=== PATIENT | female | born 1960 | race Caucasian/White ===

== ENCOUNTER 2016-11-22 20:30 | Emergency (ER) | payer MEDICAID ==
[2016-04-07 13:09] VITALS: BMI 30.6
[~2016-11-22 20:30] MED LIST: ADVAIR 250/501 DISK INH; ALDACTONE100 MG PO; ATIVAN0.5 MG; CARAFATE1 G/10 ML PO; HYDROCHLOROTHIA25 MG PO; IPRAT-ALBUT 0.5-3 ML UPD; LASIX40 MG PO; LEVAQUIN500 MG PO; MEDROL DOSE PACK4 MG PO; NORCO 5/325 TAB1 TA1 PO; OXYCONTIN10 MG PO; PHENERGAN25 M1 PO; PREDNISONE10 MG; PRILOSEC10 MG PO; PROAIR HFA8.5 GM INH; PROTONIX40 MG PO; REGLAN10 MG PO; RIBAVIRIN200 MG PO; SOVALDI400 MG PO; ULTRAM50 MG PO; VESICARE5 MG PO; VITAMIN A10000 UNIT PO; VITAMIN D31000 UNI2 PO; ZITHROMAX250 MG PO; ZITHROMAX500 MG PO; ZPAK PO
[2016-11-22 21:07] LABS: BASOPHILS 0.2 % (0.0-2.0); EOSINOPHILS 2.3 % (0-7); HEMATOCRIT 40.2 % (36.0-48.0); HEMOGLOBIN 13.1 g/dL (12-16); IMMATURE GRANULOCYTES 0.2 % (0-5); LYMPHOCYTES 19.9 % (15-50); MCH 30.4 pg (26.0-34.0); MCHC 32.6 g/dL (31.0-37.0); MCV 93.3 fL (80.0-100.0); MONOCYTES 4.4 % (2-11); PLATELET COUNT 142 10x3/uL (130-400); RBC 4.31 10x6/uL (4.00-5.40); RDW 11.6 % (11.5-14.5); WBC 5.6 10x3/uL (4.8-10.8)
[2016-11-22 21:22] LABS: ALBUMIN 4.2 g/dL (3.4-5.0); ALKALINE PHOSPHATASE 60 U/L (46-116); ALT (SGPT) 25 U/L (10-68); BILIRUBIN - TOTAL 0.34 mg/dL (0.2-1.3); CALC OSMOLALITY 287 mosm/kg (275-300); CALCIUM 9.2 mg/dL (8.5-10.1); CARBON DIOXIDE 26.9 mmol/L (21.0-32.0); CHLORIDE - SERUM 107 mmol/L (98-107); CREATININE - SERUM 0.8 mg/dL (0.6-1.3); GLUCOSE 149 mg/dL (74-106); PROTEIN - SERUM 6.9 g/dL (6.4-8.2); SODIUM 142 mmol/L (136-145); UREA NITROGEN 18 mg/dL (7-18); eGFR NON AFRICAN AMERICAN 79 mL/min (90-120)
== END 2016-11-22 21:48 | disposition home or self-care (01) ==
LOC: D.ER 20:30
PROVIDERS: Nurse Practitioner Acute Care
DX: G89.29 Other chronic pain (principal); M54.2 Cervicalgia; J45.909 Unspecified asthma, uncomplicated; J44.9 Chronic obstructive pulmonary disease, unspecified; K74.1 Hepatic sclerosis; B19.20 Unspecified viral hepatitis C without hepatic coma

== ENCOUNTER → 2016-11-25 07:56 | Outpatient (CLI) | payer MEDICAID ==
[2016-04-07 13:09] VITALS: BMI 30.6
== END | disposition home or self-care (01) ==
LOC: D.CT 07:56
DX: R10.9 Unspecified abdominal pain (principal); R10.2 Pelvic and perineal pain

== ENCOUNTER 2017-04-18 10:55 | Emergency (ER) | payer MEDICAID ==
[2016-04-07 13:09] VITALS: BMI 30.6
== END 2017-04-18 12:42 | disposition home or self-care (01) ==
LOC: D.ER 10:55
DX: S33.9XXA Sprain of unspecified parts of lumbar spine and pelvis, initial encounter (principal); S70.01XA Contusion of right hip, initial encounter; W11.XXXA Fall on and from ladder, initial encounter; M19.90 Unspecified osteoarthritis, unspecified site; J44.9 Chronic obstructive pulmonary disease, unspecified

== ENCOUNTER 2017-05-30 17:09 | Inpatient (IN) | payer SELFPAY ==
[~2017-05-30] VITALS: Ht 154.9 cm; Wt 81.2 kg
[2017-05-30 18:15] LABS: BASOPHILS 0.4 % (0-2); HEMATOCRIT 38.6 % (36.0-48.0); HEMOGLOBIN 13.1 g/dL (12-16); IMMATURE GRANULOCYTES 0.6 % (0-5); LYMPHOCYTES 33.7 % (15-50); MCH 29.8 pg (26.0-34.0); MCHC 33.9 g/dL (31.0-37.0); MCV 87.7 fL (80.0-100.0); MEAN PLATELET VOLUME 10.5 fL (7.4-10.4); MONOCYTES 2.8 % (2-11); NEUTROPHILS 58.5 % (40-80); PLATELET COUNT 124 10x3/uL (130-400); RDW 13.2 % (11.5-14.5); WBC 5.3 10x3/uL (4.8-10.8)
[2017-05-30 18:31] LABS: ALBUMIN 3.8 g/dL (3.4-5.0); ANION GAP 14.8 mmol/L (8-16); BILIRUBIN - TOTAL 0.21 mg/dL (0.2-1.3); CALCIUM 8.9 mg/dL (8.5-10.1); CARBON DIOXIDE 22.9 mmol/L (21.0-32.0); POTASSIUM - SERUM 3.7 mmol/L (3.5-5.1); PROTEIN - SERUM 6.9 g/dL (6.4-8.2)
[2017-05-30 21:57] VITALS: BP 125/71; BMI 33.9
[2017-05-31] VITALS: BP 113/67
--- NOTE | 2017-05-31 01:01 | NUR ---
PAGE SENT TO DR MACHADO FOR PAIN MED REQUEST. AWAITING CALL BACK.
[2017-05-31 04:00] VITALS: BP 113/76
[2017-05-31 07:47] LABS: BASOPHILS 0 % (0-2); EOSINOPHILS 0.2 % (0-7); HEMOGLOBIN 13.1 g/dL (12-16); IMMATURE GRANULOCYTES 0.5 % (0-5); LYMPHOCYTES 9.3 % (15-50); MCHC 33.6 g/dL (31.0-37.0); MCV 89.2 fL (80.0-100.0); MEAN PLATELET VOLUME 10.7 fL (7.4-10.4); MONOCYTES 0.5 % (2-11); NEUTROPHILS 89.5 % (40-80); PLATELET COUNT 131 10x3/uL (130-400); RBC 4.37 10x6/uL (4.00-5.40); RDW 13.3 % (11.5-14.5); WBC 5.6 10x3/uL (4.8-10.8)
[2017-05-31 08:02] LABS: ANION GAP 17.6 mmol/L (8-16); CALCIUM 9.2 mg/dL (8.5-10.1); CARBON DIOXIDE 19.5 mmol/L (21.0-32.0); CREATININE - SERUM 0.9 mg/dL (0.6-1.3); POTASSIUM - SERUM 4.1 mmol/L (3.5-5.1)
[2017-05-31 09:41] VITALS: BP 104/65
--- NOTE | 2017-05-31 10:23 | NUR ---
PATIENT SITTING UPRIGHT IN BED ALERT. NO SIGNS OF DISTRESS NOTED. PRIMARY NURSE ENOC GONZALEZ AT BEDSIDE. BED IN LOW POSITION. CALL LIGHT IN REACH. SIDE RAILS UP X2
[2017-05-31 12:33] VITALS: BP 111/69
[2017-05-31 13:35] LABS: APPEARANCE CLEAR (CLEAR); BILIRUBIN NEGATIVE (NEGATIVE); COLOR YELLOW (YELLOW); GLUCOSE 250 mg/dL (NEGATIVE); KETONE SMALL mg/dL (NEGATIVE); LEUKOCYTE ESTERASE NEGATIVE (NEGATIVE); NITRITE NEGATIVE (NEGATIVE); PROTEIN NEGATIVE (NEGATIVE); UROBILINOGEN NORMAL (NORMAL)
[2017-05-31 17:38] VITALS: BP 107/70
[2017-05-31 20:00] VITALS: BP 121/60
--- NOTE | 2017-05-31 22:00 | NUR ---
PT ALERT & ORIENTED. SLIGHT WHEEZES HEARD ON AUSCULTATION. COUGH IS NON-PRODUCTIVE. RESP EVEN, UNLABORED. ROOM AIR. COMPLETE ASSESSMENT PER FLOW-SHEET. GAVE PAIN MED FOR ABDOMINAL, FLANK AND CHEST PAIN. FSBS 223 - TREATED WITH S/S INSULIN. WILL CONTINUE TO MONITOR.
[2017-06-01] VITALS (7 sets, daily range): BP systolic 101–130; BP diastolic 59–79
--- NOTE | 2017-06-01 07:30 | NUR ---
PT A&O, DENIES NEEDS, BED LOWEST POSITION, CALL LIGHT IN REACH, WILL CONTINUE TO MONITOR
--- NOTE | 2017-06-01 11:05 | NUR ---
Patient Name: LAZARUS HECTOR Admission Status: ER Accout number: [id number] Admission Date: 05-30-2017 : 1960 Admission Diagnosis: Attending: YIMI Current LOS: 2 Anticipated DC Date: 06-02-2017 Planned Disposition: Home Primary Insurance: UNINSURED DISCOUNT PLAN Discharge Planning Comments: CM MET WITH PATIENT REGARDING D/C NEEDS AND PLANS. PATIENT STATED SHE LIVES WITH HER SPOUSE (SUNDAY) AND HE WILL DRIVE HER HOME AT DISCHARGE. PATIENT STATED THERE ARE 4 STEPS TO ENTER HOME AND NO STAIRS INSIDE. PATIENT IS INDEPENDENT WITH HER CARE AND HAS NO DME AT HOME. PATIENTS PCP IS DR. SLATER AND PHARMACY IS [facility] ON [address] [facility]. PATIENT IS REFUSING HOME HEALTH AT THIS TIME. CM WILL CONTINUE TO FOLLOW PATIENT WITH D/C NEEDS AND PLANS. PCP DR. NOHEMY PASCUAL ON [address] [facility]- [phone] SUNDAY [phone] Sharepoint Net Developer: Tami Bhandari Is the patient Alert and Oriented? Yes 0 * How many steps to enter\exit or inside your home? 4 0 * PCP DR. SLATER 0 * Pharmacy [facility] [address] [facility] [facility] 0 * Preadmission Environment Home with Family 0 * ADLs Independent 0 * Equipment None 0 * List name and contact numbers for known caregivers / representatives who currently or will assist patient after discharge: SUNDAY (SPOUSE) [phone] 0 * Community resources currently utilized None 0 * Additional services required to return to the preadmission environment? Yes 0 * Has this patient been hospitalized within the prior 30 days at any hospital? No 0 Grand Total: 0
--- NOTE | 2017-06-01 12:00 | NUR ---
PT RESTING IN BED WITH NO VISABLE SIGNS OF PAIN OR DISCOMFORT AT THIS TIME. BED IN LOW POSITION AND CALL LIGHT WITHIN REACH. WILL CONTINUE TO MONITOR.
--- NOTE | 2017-06-01 15:35 | NUR ---
REPORT CALLED TO WOMENS, WILL TAKE DOWN BY WC WITH BELONGINGS
--- NOTE | 2017-06-01 16:00 | NUR ---
RCVD PT FROM MED/SURG FINISHING AREA SUPERVISOR. PT DRESSING IN PERSONAL CLOTHES AND ABD FROM W/C TO BED WITHOUT DIFFICULTY AND IS AAOX3. PT DENIES PAIN AT THIS TIME. BREATH SOUNDS CLEAR ASIDE FROM EXPIRATORY WHEEZES IN RUL. PT REPORTS FEELING SOB, BUT STATES "IT'S GETTING BETTER SINCE I'VE BEEN HERE." HR-RRR, PPP, PIV SL IN LT AC WITHOUT ERYTHEMA OR EDEMA NOTED TO SITE. BOWEL SOUNDS ACTIVE X4. SKIN C/D/I AND WNL FOR PT. ICE WATER PROVIDED PER PT REQUEST. NC PROVIDED FOR PT DUE TO ORDER FOR PRN O2. PT DENIES NEED FOR USE AT THIS TIME. BED LOW, WHEELS LOCKED, CL IN REACH, SIDE RAILS UP X2.
--- NOTE | 2017-06-01 16:33 | NUR ---
ICE WATER PROVIDED PER PT REQUEST. TESSALON PERLE GIVEN PER ORDERS. SEE EMAR. LATE ADMINISTRATION DUE TO PT TRANSFERRING FROM M/S UNIT.
--- NOTE | 2017-06-01 16:38 | NUR ---
FSBS DONE AT THIS TIME WITH RESULTS OF 170. WILL GIVEN REGULAR INSULIN PER ORDERS. PT DENIES FURTHER NEEDS.
--- NOTE | 2017-06-01 16:42 | NUR ---
8 UNITS HUMULIN GIVEN PER SLIDING SCALE WITH FSBS OF 170. GIVEN SUB Q IN LUQ OF ABD. PT TOLERATED WELL. PT DENIES PAIN OR NEEDS AT THIS TIME. FAMILY IN ROOM FOR SUPPORT.
--- NOTE | 2017-06-01 17:33 | NUR ---
MEAL TRAY DELIVERED PER DIETARY. PT DENIES FURTHER NEEDS.
--- NOTE | 2017-06-01 18:12 | NUR ---
ROUNDS MADE. PT FINISHED 80% OF MEAL. MEAL TRAY REMOVED PER PT REQUEST. PT DENIES PAIN OR NEEDS AT THIS TIME.
--- NOTE | 2017-06-01 19:20 | NUR ---
AWAKE DURING INITIAL ROUNDS. INTRODUCED SELF. V/S TAKEN. ASSESSMENT DONE. STATUS Dx: ASTHMA/EXACERBATION. SALINE LOCK TO L AC INTACT. SOME EXPIRATORY WHEEZING ON AUSCULTATION.
--- NOTE | 2017-06-01 20:59 | NUR ---
RT HERE TO GIVE BREATHING TREATMENT. HS MEDS GIVEN. SEE E-MAR.
--- NOTE | 2017-06-01 21:06 | NUR ---
FSBS 253mg/dl. REGULAR INSULIN 16 units GIVEN PER HIGH SLIDING SCALE. HS MEDS GIVEN. SEE E-MAR.
--- NOTE | 2017-06-01 23:30 | NUR ---
V/S STABLE. MEDICATED FOR PAIN WITH OXYCONTIN 10mg 1tab PO.
--- NOTE | 2017-06-02 01:29 | NUR ---
ROCEPHIN 1G IVPB INFUSING. NO ADVERSE REACTION NOTED.
--- NOTE | 2017-06-02 02:10 | NUR ---
ZITHROMAX 500mg IVPB INFUSING. SEE E-MAR.
[2017-06-02 04:15] VITALS: BP 122/83
--- NOTE | 2017-06-02 04:15 | NUR ---
SOLU-MEDROL 40mg IVP GIVEN. V/S STABLE.
--- NOTE | 2017-06-02 06:41 | NUR ---
RT HERE TO GIVE BREATHING TREATMENT.
[2017-06-02 07:15] VITALS: BP 114/69
--- NOTE | 2017-06-02 07:30 | NUR ---
PT IS RECEIVED THIS AM LYING IN BED. SHE OFFERS NO COMPLAINTS. GEN- ALERT AND OREIENTED. LUNGS- WITH BILATERAL WHEEZING. HEART- RRR. ABD- SOFT, NT BS+. EXT- LE WITH MINIMAL EDEMA. SALINE LOCK NOTED LEFT AC. BED IS LOW, SIDE RAILS UP X 2 AND CALL LIGHT IN REACH.
[2017-06-02 09:14] LABS: IMMUNOGLOBULIN E 6 IU/mL (0-100)
[2017-06-02 09:22] VITALS: Ht 154.9 cm; Wt 81.2 kg
--- NOTE | 2017-06-02 09:34 | NUR ---
LOVENOX INJECTION ADM BY Faisal BENAVIDEZ RN. PT SITTING UP IN THE BED, DENIES OTHER NEEDS AT THIS TIME. SR UP X2, CALL LIGHT AND PHONE WITHIN REACH.
--- NOTE | 2017-06-02 12:00 | NUR ---
PTS BS CHECKED AND INSULIN GIVEN. HER LUNCH IS SERVED.
--- NOTE | 2017-06-02 13:30 | NUR ---
PT IS RESTING IN BED AND OFFERS NO COMPLAINTS. BED IS LOW, SIDE RAILS UP X 2 AND CALL LIGHT IN REACH.
--- NOTE | 2017-06-02 15:00 | NUR ---
RESPIRATORY THERAPY IS HERE TO SEE PT FOR BREATHING TREATMENT. PT TOLERATED WELL.
--- NOTE | 2017-06-02 16:02 | NUR ---
PTS 11-1300 MEDS GIVEN WHICH WERE NOT RECEIVED FROM PHARMACY UNTIL RECENTLY WERE GIVEN NOW. PT OFFER NO COMPLAINTS. BED IS LOW, SIDE RAILS UP X 2 AND CALL LIGHT IN REACH.
--- NOTE | 2017-06-02 16:15 | NUR ---
PTS BS WAS 181. 8 UNITS OF INSULING GIVEN SUB CU
--- NOTE | 2017-06-02 18:24 | NUR ---
DR URBAN IS HERE TO SEE PT. NEW ORDERS NOTED.
[2017-06-02 19:20] VITALS: BP 130/69
--- NOTE | 2017-06-02 19:20 | NUR ---
ASSESSMENT PER FLOW SHEET.PT WITHOUT DISTRESS AT PRESENT.STATES PAIN 6/10 TO CHEST AND BACK WHEN SHE TAKES BREATH.DENIES FURTHER NEEDS.CALL LIGHT USE INSTRUCTED AND IN REACH
--- NOTE | 2017-06-02 20:26 | NUR ---
RT HERE TO GIVE BREATHING TREATMENTS.
[2017-06-03] VITALS: BP 121/77
--- NOTE | 2017-06-03 | NUR ---
V/S RECHECKED--STABLE. DENIES NEEDS AT THIS TIME.
--- NOTE | 2017-06-03 01:09 | NUR ---
ROCEPHIN ANTIBIOTIC 1G IVPB INFUSING. NO ADVERSE REACTION NOTED.
--- NOTE | 2017-06-03 06:19 | NUR ---
PROTONIX PO GIVEN. SEE E-MAR. SLEPT FAIRLY DURING THE NIGHT. CONTINUING PLAN OF CARE.
[2017-06-03 07:30] VITALS: BP 136/85
--- NOTE | 2017-06-03 07:30 | NUR ---
PT IS RECEIVED LYING IN BED THIA AM. SHE OFFERS NO COMPLAINTS. SHE STATES THAT HER PAIN IS ABOUT A 5. SHE DOES NOT WISH FOR ANY PAIN MED AT THIS TIME. STATES THAT SHE RESTED WELL LAST NIGHT. VSS. GEN- AWAKE AND ALERT. LUNGS- WHEEZING BILATERAL. HEART- RRR. ABD- SOFT, NT, BS+. EXT- NO EDEMA NOTED. SALINE LOCK NOTED LEFT AC. PATENT. BED IS LOW, SIDE RAILS UP X 2 AND CALL LIGHT IN REACH.
[2017-06-03] MEDS ORDERED: BROVANA15 MCG/2 M INH (07:55)
[2017-06-03] MEDS ORDERED: PULMICORT0.5 MG/21 UPD (07:56)
[2017-06-03] MEDS ORDERED: SINGULAIR10 MG PO (07:56)
[2017-06-03] MEDS ORDERED: MEDROL DOSE PACK4 MG PO (07:57)
[2017-06-03] MEDS ORDERED: ZPAK PO (07:57)
--- NOTE | 2017-06-03 08:02 | NUR ---
PT SERVED BREAKFAST. DR SLATER IS HERE TO SEE PT.. NEW ORDERS NOTED. PT IS TO BE DISCHARGED.
--- NOTE | 2017-06-03 09:00 | NUR ---
PT IS BEING DISCHARGED HOME. SHE WOULD LIKE TO GO AFTER LUNCH. SHE OFFERS NO COMPLAINTS AT THIS TIME.
--- NOTE | 2017-06-03 11:15 | NUR ---
PTS BS TAKEN. BS 272. 16 UNITS GIVEN. PT OFFERS NO COMPLAINTS.
--- NOTE | 2017-06-03 13:00 | NUR ---
PT WAS DISCHARGED HOME. SHE WAS GIVEN DISCHARGE INSTRUCTIONS AND HANDOUTS GIVEN. PT WAS TAKEN TO FRONT DOOR BY WHEELCHAIR.
== END 2017-06-03 13:30 | disposition home or self-care (01) | DRG 194 ==
LOC: OBSVTIME → D.ER 17:09 → D.MS 20:29 → D.ER 20:42 → OBSVTIME 20:42 → D.MS 20:42 → D.WS 06-01 15:57 → D.MS 06-01 15:57 → D.WS 06-02 08:29 → D.MS 06-03 13:30
PROVIDERS: Family Medicine; Internal Medicine Pulmonary Disease; Physician Assistant Medical; ADMIT Family Medicine
DX: J18.9 Pneumonia, unspecified organism (principal); J45.901 Unspecified asthma with (acute) exacerbation; R30.0 Dysuria; R10.9 Unspecified abdominal pain; B19.20 Unspecified viral hepatitis C without hepatic coma; K21.9 Gastro-esophageal reflux disease without esophagitis; R13.10 Dysphagia, unspecified; R16.1 Splenomegaly, not elsewhere classified; D69.6 Thrombocytopenia, unspecified

== ENCOUNTER 2017-08-16 18:03 | Emergency (ER) | payer MEDICAID ==
[2017-06-02 09:22] VITALS: BMI 33.8
[~2017-08-16 18:03] MED LIST changes: +BROVANA15 MCG/2 M INH; +PULMICORT0.5 MG/21 UPD; +SINGULAIR10 MG PO
[2017-08-16 19:08] LABS: BASOPHILS 0.2 % (0-2); EOSINOPHILS 4.5 % (0-7); HEMOGLOBIN 14.7 g/dL (12-16); IMMATURE GRANULOCYTES 0.6 % (0-5); LYMPHOCYTES 32.4 % (15-50); MCHC 34.2 g/dL (31.0-37.0); MCV 87.8 fL (80.0-100.0); MEAN PLATELET VOLUME 10.8 fL (7.4-10.4); NEUTROPHILS 57.3 % (40-80); RDW 12.6 % (11.5-14.5); WBC 8.9 10x3/uL (4.8-10.8)
[2017-08-16 19:09] LABS: PLATELET COUNT 196 10x3/uL (130-400)
[2017-08-16 19:24] LABS: ALBUMIN 3.9 g/dL (3.4-5.0); ANION GAP 18.3 mmol/L (8-16); BILIRUBIN - TOTAL 0.4 mg/dL (0.2-1.3); CALCIUM 9.4 mg/dL (8.5-10.1); CARBON DIOXIDE 20.4 mmol/L (21.0-32.0); CREATININE - SERUM 0.9 mg/dL (0.6-1.3); POTASSIUM - SERUM 3.7 mmol/L (3.5-5.1); PROTEIN - SERUM 6.7 g/dL (6.4-8.2)
[2017-08-16 20:19] LABS: CREATINE KINASE 44 UL (21-215); PRO BNP 202 pg/mL (0-125)
[2017-08-16 20:20] LABS: TROPONIN-I < 0.017 ng/mL (0.000-0.060)
[2017-11-23] MEDS ORDERED: LOSARTAN POTASS25 MG PO (01:13)
[2017-11-23] MEDS ORDERED: OXYCODONE HCL5 MG PO (01:14)
[2017-11-23] MEDS ORDERED: CYCLOBENZAPRINE5 MG PO (01:19)
[2017-11-23] MEDS ORDERED: PROMETHAZINE W473 M1 PO (01:20)
== END 2017-08-16 21:18 | disposition home or self-care (01) ==
LOC: D.ER 18:03
PROVIDERS: Emergency Medicine
DX: R06.00 Dyspnea, unspecified (principal); J20.9 Acute bronchitis, unspecified; J45.909 Unspecified asthma, uncomplicated

== ENCOUNTER 2017-11-02 20:52 | Emergency (ER) | payer MEDICAID ==
[2017-06-02 09:22] VITALS: BMI 33.8
[2017-11-02 22:20] LABS: BASOPHILS 0.2 % (0-2); EOSINOPHILS 2.3 % (0-7); HEMATOCRIT 42.7 % (36.0-48.0); HEMOGLOBIN 14.4 g/dL (12-16); IMMATURE GRANULOCYTES 0.2 % (0-5); LYMPHOCYTES 15.1 % (15-50); MCH 29.6 pg (26.0-34.0); MCHC 33.7 g/dL (31.0-37.0); MCV 87.9 fL (80.0-100.0); MEAN PLATELET VOLUME 10.6 fL (7.4-10.4); MONOCYTES 3.4 % (2-11); NEUTROPHILS 78.8 % (40-80); RBC 4.86 10x6/uL (4.00-5.40); RDW 12.6 % (11.5-14.5); WBC 10.5 10x3/uL (4.8-10.8)
[2017-11-02 22:22] LABS: APPEARANCE HAZY (CLEAR); BILIRUBIN NEGATIVE (NEGATIVE); COLOR YELLOW (YELLOW); GLUCOSE NEGATIVE (NEGATIVE); KETONE MODERATE mg/dL (NEGATIVE); NITRITE NEGATIVE (NEGATIVE); PROTEIN NEGATIVE (NEGATIVE); SPECIFIC GRAVITY 1.015 (1.005-1.020); UROBILINOGEN NORMAL (NORMAL)
[2017-11-02 22:34] LABS: ANION GAP 12.1 mmol/L (8-16); BILIRUBIN - TOTAL 0.85 mg/dL (0.2-1.3); CALCIUM 9.6 mg/dL (8.5-10.1); CREATININE - SERUM 0.9 mg/dL (0.6-1.3); POTASSIUM - SERUM 4.1 mmol/L (3.5-5.1)
[2017-11-02 22:37] LABS: EPITHELIAL CELLS 0-5 /hpf (0-5); RED CELLS - URINE 0-5 /hpf (0-5); WHITE CELLS - URINE 25-50 /hpf (0-5)
[2017-11-02 22:38] LABS: BACTERIA MODERATE /hpf (NONE SEEN); MUCUS <1+ /lpf (NONE SEEN)
[2017-11-02 22:38] LABS: PLATELET COUNT 145 10x3/uL (130-400)
[2017-11-23] MEDS ORDERED: LOSARTAN POTASS25 MG PO (01:13)
[2017-11-23] MEDS ORDERED: OXYCODONE HCL5 MG PO (01:14)
[2017-11-23] MEDS ORDERED: CYCLOBENZAPRINE5 MG PO (01:19)
[2017-11-23] MEDS ORDERED: PROMETHAZINE W473 M1 PO (01:20)
== END 2017-11-02 23:25 | disposition home or self-care (01) ==
LOC: D.ER 20:52
PROVIDERS: Family Medicine; Physician Assistant
DX: R05 Cough (principal); R30.0 Dysuria; R10.84 Generalized abdominal pain

== ENCOUNTER 2017-11-22 19:50 | Observation (INO) | payer MEDICAID | END 2017-11-26 11:15 | disposition home or self-care (01) | LOC: D.ER 19:50 → D.MS 11-23 00:04 | DX: J45.901 Unspecified asthma with (acute) exacerbation (principal); B19.20 Unspecified viral hepatitis C without hepatic coma; R10.9 Unspecified abdominal pain; K21.9 Gastro-esophageal reflux disease without esophagitis; K74.60 Unspecified cirrhosis of liver; M51.27 Other intervertebral disc displacement, lumbosacral region; J20.9 Acute bronchitis, unspecified ==

== ENCOUNTER 2018-02-03 18:09 | Emergency (ER) | payer MEDICAID ==
[2017-11-23 08:15] VITALS: BMI 35.2
[~2018-02-03 18:09] MED LIST changes: +BENZONATATE200 MG PO; +CYCLOBENZAPRINE5 MG PO; +FLUTICASONE PRO16 GM NASAL; +LOSARTAN POTASS25 MG PO; +OXYCODONE HCL5 MG PO; +PROMETHAZINE W473 M1 PO
== END 2018-02-03 20:30 | disposition home or self-care (01) ==
LOC: D.ER 18:09
DX: S92.152A Displaced avulsion fracture (chip fracture) of left talus, initial encounter for closed fracture (principal); W19.XXXA Unspecified fall, initial encounter; Y93.89 Activity, other specified; Y92.019 Unspecified place in single-family (private) house as the place of occurrence of the external cause

== ENCOUNTER → 2018-02-18 16:54 | Outpatient (CLI) | payer MEDICAID ==
[2017-11-23 08:15] VITALS: BMI 35.2
== END | disposition home or self-care (01) ==
LOC: D.MAMMO 15:45
DX: Z12.31 Encounter for screening mammogram for malignant neoplasm of breast (principal)

== ENCOUNTER → 2018-03-15 23:46 | Outpatient (CLI) | payer MEDICAID ==
[2017-11-23 08:15] VITALS: BMI 35.2
== END | disposition home or self-care (01) ==
LOC: D.MAMMO 09:30
DX: R92.8 Other abnormal and inconclusive findings on diagnostic imaging of breast (principal)

== ENCOUNTER 2018-05-25 12:17 | Inpatient (IN) | payer MEDICAID ==
[~2018-05-25] VITALS: Ht 154.9 cm; Wt 82.6 kg
--- NOTE | ~2018-05-25 | HP ---
PATIENT: LAZARUS HECTOR MEDICAL RECORD: [id number] ACCOUNT: [id number] LOCATION:[address] : [birth year] ADMISSION DATE: 05/25/18 HISTORY AND PHYSICAL EXAMINATION DATE OF ADMISSION: 05/25/2018 CHIEF COMPLAINT: Abdominal pain. HISTORY OF PRESENT ILLNESS: This is a 57-year-old female who has had 3 days of left lower quadrant abdominal pain, some nausea. No vomiting. She has also had some dysuria for the last couple of days. She presented to the Emergency Department today with these symptoms, she was afebrile. LABORATORY DATA: Urinalysis showed 2+ leukocyte esterase, 5-10 white blood cells, moderate bacteria. CBC was normal and basic metabolic panel was okay. Liver functions were fine. CT of the abdomen and pelvis was consistent with acute uncomplicated sigmoid diverticulitis. She is admitted. PAST MEDICAL HISTORY: She has a history of hepatitis C. She has a history of nonalcoholic cirrhosis, asthma, COPD, back pain, and chronic pain from the cirrhosis. PAST SURGICAL HISTORY: Cholecystectomy, appendectomy, . DRUG ALLERGIES: None. CURRENT MEDICATIONS: ProAir HFA 2 puffs q. 4-6 hours p.r.n., DuoNeb via nebulizer q. 4 to 6 hours p.r.n., Brovana updraft twice a day, losartan 25 mg once a day, Pulmicort twice a day, Singulair 10 mg at bedtime. She has taken oxycodone 5 mg twice a day as needed for pain. HABITS: She has never smoked, never drank alcohol, no illicit drug use. SOCIAL HISTORY: and unemployed due to her medical problems. FAMILY HISTORY: Both parents are living and healthy. REVIEW OF SYSTEMS: GENERAL: No major weight changes. HEENT: No particular sinus or allergy problems. RESPIRATORY: She has a history of COPD and asthma, followed by Dr. Marquez. CARDIAC: No chest pain or known coronary artery disease. GASTROINTESTINAL: No diarrhea, constipation or reflux. GENITOURINARY: No significant problems there. MUSCULOSKELETAL: Has some chronic pain due to hepatitis C. NEUROLOGIC: No migraines. No seizures. PSYCHIATRIC: Denies depression or melancholia. PHYSICAL EXAMINATION: VITAL SIGNS: Temperature 97.5, pulse 70, respirations 18, blood pressure 123/66, O2 sat 96% on room air. HISTORY AND PHYSICAL [id number] LAZARUS HECTOR GENERAL: She is awake, alert, does not appear in acute distress at this time. HEENT: Grossly within normal limits. NECK: Supple. HEART: Regular rate and rhythm. LUNGS: Clear. No wheeze at this time. ABDOMEN: Soft. There is left lower quadrant abdominal tenderness. No guarding, no rebound, no mass. RECTAL: Not done. EXTREMITIES: No edema. LABORATORY DATA: CBC showed a white count of 8000, hemoglobin 13.2. Basic metabolic panel is all normal. Liver functions are normal. Urinalysis shows 2+ leukocyte esterase, 5-10 white blood cells, moderate bacteria, 0-[address] of the abdomen and pelvis consistent with acute uncomplicated sigmoid diverticulitis. ASSESSMENT: 1. Acute diverticulitis. 2. Urinary tract infection. 3. History of hepatitis C with cirrhosis. 4. Asthma/chronic obstructive pulmonary disease. PLAN: We will continue her usual medicines, she was started on metronidazole and Levaquin. Gut rest. Pain control. Other tests or procedures as warranted. TRANSINT:[id number] Voice Confirmation ID: [id number] DOCUMENT ID: [id number] BONNIE HENRY MD at 1321 CC: [id number] DICTATION DATE: 05/26/18 0002 MANAGER MEETING: 05/26/18 0104 ADM IN [facility] [address] [id number]
[2018-05-25] MEDS ORDERED: BREO ELLIPTA 21 EACH (12:29)
[2018-05-25] MEDS ORDERED: PULMICORT0.5 MG/21 INH (12:29)
[2018-05-25 13:16] LABS: BASOPHILS 0.5 % (0-2); EOSINOPHILS 2.1 % (0-7); HEMATOCRIT 38.9 % (36.0-48.0); HEMOGLOBIN 13.2 g/dL (12-16); IMMATURE GRANULOCYTES 0.2 % (0-5); LYMPHOCYTES 16.4 % (15-50); MCH 29.8 pg (26.0-34.0); MCHC 33.9 g/dL (31.0-37.0); MCV 87.8 fL (80.0-100.0); MEAN PLATELET VOLUME 10.9 fL (7.4-10.4); MONOCYTES 4.5 % (2-11); NEUTROPHILS 76.3 % (40-80); PLATELET COUNT 150 10x3/uL (130-400); RBC 4.43 10x6/uL (4.00-5.40); RDW 12.8 % (11.5-14.5)
[2018-05-25 14:06] LABS: ALKALINE PHOSPHATASE 42 U/L (46-116); ALT (SGPT) 34 U/L (10-68); BILIRUBIN - TOTAL 0.81 mg/dL (0.2-1.3); CALC OSMOLALITY 280 mosm/kg (275-300); CALCIUM 9.2 mg/dL (8.5-10.1); CHLORIDE - SERUM 106 mmol/L (98-107); CREATININE - SERUM 0.8 mg/dL (0.6-1.3); POTASSIUM - SERUM 4.5 mmol/L (3.5-5.1); SODIUM 141 mmol/L (136-145); UREA NITROGEN 9 mg/dL (7-18); eGFR NON AFRICAN AMERICAN 78 mL/min (90-120)
[2018-05-25 14:09] LABS: GLUCOSE 110 mg/dL (74-106)
[2018-05-25 14:14] LABS: APPEARANCE HAZY (CLEAR); BACTERIA MODERATE /hpf (NONE SEEN); BILIRUBIN NEGATIVE (NEGATIVE); COLOR YELLOW (YELLOW); EPITHELIAL CELLS 0-5 /hpf (0-5); GLUCOSE NEGATIVE (NEGATIVE); KETONE NEGATIVE (NEGATIVE); MUCUS <1+ /lpf (NONE SEEN); NITRITE NEGATIVE (NEGATIVE); PROTEIN NEGATIVE (NEGATIVE); UROBILINOGEN NORMAL (NORMAL)
[2018-05-25 16:00] VITALS: BP 118/68
[2018-05-25 17:00] VITALS: BP 113/80
[2018-05-25 18:00] VITALS: BP 123/66
[2018-05-26 03:27] VITALS: BP 136/89; BMI 34.4
[2018-05-26 04:52] LABS: BASOPHILS 0.4 % (0-2); EOSINOPHILS 2.4 % (0-7); HEMATOCRIT 34.6 % (36.0-48.0); HEMOGLOBIN 11.6 g/dL (12-16); IMMATURE GRANULOCYTES 0.2 % (0-5); LYMPHOCYTES 18.8 % (15-50); MCH 29.5 pg (26.0-34.0); MCHC 33.5 g/dL (31.0-37.0); MEAN PLATELET VOLUME 11.1 fL (7.4-10.4); MONOCYTES 5.6 % (2-11); NEUTROPHILS 72.6 % (40-80); PLATELET COUNT 119 10x3/uL (130-400); RBC 3.93 10x6/uL (4.00-5.40); RDW 12.8 % (11.5-14.5); WBC 5.3 10x3/uL (4.8-10.8)
[2018-05-26 04:55] VITALS: BP 93/60
[2018-05-26 05:12] LABS: ALKALINE PHOSPHATASE 41 U/L (46-116); ALT (SGPT) 29 U/L (10-68); BILIRUBIN - TOTAL 0.44 mg/dL (0.2-1.3); CALC OSMOLALITY 280 mosm/kg (275-300); CALCIUM 8.3 mg/dL (8.5-10.1); CARBON DIOXIDE 25.8 mmol/L (21.0-32.0); CHLORIDE - SERUM 107 mmol/L (98-107); CREATININE - SERUM 0.8 mg/dL (0.6-1.3); GLUCOSE 124 mg/dL (74-106); PROTEIN - SERUM 5.6 g/dL (6.4-8.2); SODIUM 141 mmol/L (136-145); UREA NITROGEN 10 mg/dL (7-18); eGFR NON AFRICAN AMERICAN 78 mL/min (90-120)
[2018-05-26 05:13] LABS: POTASSIUM - SERUM 3.8 mmol/L (3.5-5.1)
[2018-05-26 07:30] VITALS: BP 107/68
[2018-05-26 13:21] VITALS: Ht 154.9 cm; Wt 82.6 kg
[2018-05-26 15:36] VITALS: BP 104/65
[2018-05-26 19:28] VITALS: BP 109/61
[2018-05-27 04:00] VITALS: BP 93/43
[2018-05-27 08:01] VITALS: BP 102/70
[2018-05-27 08:07] LABS: BASOPHILS 0.2 % (0-2); EOSINOPHILS 1.9 % (0-7); HEMATOCRIT 33.6 % (36.0-48.0); HEMOGLOBIN 11.4 g/dL (12-16); IMMATURE GRANULOCYTES 0.5 % (0-5); LYMPHOCYTES 22.6 % (15-50); MCH 29.8 pg (26.0-34.0); MCHC 33.9 g/dL (31.0-37.0); MCV 87.7 fL (80.0-100.0); MEAN PLATELET VOLUME 10.8 fL (7.4-10.4); MONOCYTES 3.1 % (2-11); NEUTROPHILS 71.7 % (40-80); PLATELET COUNT 115 10x3/uL (130-400); RBC 3.83 10x6/uL (4.00-5.40); RDW 12.7 % (11.5-14.5); WBC 4.3 10x3/uL (4.8-10.8)
[2018-05-27 08:18] LABS: CALC OSMOLALITY 278 mosm/kg (275-300); CALCIUM 8.5 mg/dL (8.5-10.1); CHLORIDE - SERUM 107 mmol/L (98-107); CREATININE - SERUM 0.8 mg/dL (0.6-1.3); GLUCOSE 129 mg/dL (74-106); POTASSIUM - SERUM 3.9 mmol/L (3.5-5.1); SODIUM 140 mmol/L (136-145); eGFR NON AFRICAN AMERICAN 78 mL/min (90-120)
[2018-05-27 08:20] LABS: UREA NITROGEN 6 mg/dL (7-18)
[2018-05-27 19:51] VITALS: BP 117/68
[2018-05-28] VITALS: BP 135/69
[2018-05-28 04:00] VITALS: BP 86/48
[2018-05-28 04:21] LABS: BASOPHILS 0.2 % (0-2); EOSINOPHILS 2.1 % (0-7); IMMATURE GRANULOCYTES 0.7 % (0-5); LYMPHOCYTES 22.9 % (15-50); MCH 29.2 pg (26.0-34.0); MCHC 33.3 g/dL (31.0-37.0); MCV 87.5 fL (80.0-100.0); MEAN PLATELET VOLUME 10.7 fL (7.4-10.4); NEUTROPHILS 70.1 % (40-80); PLATELET COUNT 129 10x3/uL (130-400); RBC 3.77 10x6/uL (4.00-5.40); RDW 12.5 % (11.5-14.5); WBC 4.3 10x3/uL (4.8-10.8)
[2018-05-28 04:49] LABS: CALC OSMOLALITY 277 mosm/kg (275-300); CALCIUM 8.5 mg/dL (8.5-10.1); CARBON DIOXIDE 26.8 mmol/L (21.0-32.0); CHLORIDE - SERUM 108 mmol/L (98-107); CREATININE - SERUM 0.8 mg/dL (0.6-1.3); GLUCOSE 112 mg/dL (74-106); POTASSIUM - SERUM 3.8 mmol/L (3.5-5.1); SODIUM 140 mmol/L (136-145); UREA NITROGEN 6 mg/dL (7-18); eGFR NON AFRICAN AMERICAN 78 mL/min (90-120)
[2018-05-28 07:16] VITALS: BP 104/61
[2018-05-28] MEDS ORDERED: OXYCODONE HCL5 MG PO (08:08)
[2018-05-28 11:22] VITALS: BP 105/67
[2018-05-28 15:16] VITALS: BP 96/41
[2018-05-28 20:18] VITALS: BP 97/69
[2018-05-29 00:01] VITALS: BP 109/66
[2018-05-29 04:16] VITALS: BP 108/63
[2018-05-29] MEDS ORDERED: ZOFRAN4 MG PO (09:57)
[2018-05-29] MEDS ORDERED: LEVAQUIN500 MG PO (09:57)
[2018-05-29] MEDS ORDERED: FLAGYL500 MG PO (09:58)
[2018-05-29 10:32] VITALS: BP 116/75
== END 2018-05-29 14:21 | disposition home or self-care (01) | DRG 690 ==
LOC: D.ER 12:17 → D.M3 16:24 → D.EDHOLD 16:24 → D.M3 19:41 → D.MS 05-28 16:55
PROVIDERS: Family Medicine
DX: N39.0 Urinary tract infection, site not specified (principal); K57.32 Diverticulitis of large intestine without perforation or abscess without bleeding; J44.9 Chronic obstructive pulmonary disease, unspecified; K74.60 Unspecified cirrhosis of liver; B19.20 Unspecified viral hepatitis C without hepatic coma

== ENCOUNTER 2018-07-20 18:06 | Emergency (ER) | payer MEDICAID ==
[~2018-07-20] VITALS: Ht 154.9 cm; Wt 81.6 kg
[~2018-07-20 18:06] MED LIST changes: +BREO ELLIPTA 21 EACH; +FLAGYL500 MG PO; +PULMICORT0.5 MG/21 INH; +ZOFRAN4 MG PO
[2018-07-20 18:11] VITALS: Ht 154.9 cm; Wt 81.6 kg
[2018-07-20] MEDS ORDERED: VOLTAREN75 MG PO (19:58)
[2018-07-20] MEDS ORDERED: VIBRAMYCIN 100100 MG PO (19:58)
[2018-07-20 20:34] VITALS: BP 142/83
== END 2018-07-20 20:42 | disposition home or self-care (01) ==
LOC: D.ER 18:06
DX: L03.012 Cellulitis of left finger (principal); K74.60 Unspecified cirrhosis of liver; B19.20 Unspecified viral hepatitis C without hepatic coma; J44.9 Chronic obstructive pulmonary disease, unspecified

== ENCOUNTER 2018-07-24 00:08 | Emergency (ER) | payer MEDICAID ==
[~2018-07-24] VITALS: Ht 154.9 cm; Wt 81.8 kg
[~2018-07-24 00:08] MED LIST changes: +VIBRAMYCIN 100100 MG PO; +VOLTAREN75 MG PO
[2018-07-24 00:15] VITALS: Ht 154.9 cm; Wt 81.8 kg
[2018-07-24] MEDS ORDERED: MONODOX100 MG PO (00:20)
[2018-07-24 00:49] LABS: BASOPHILS 0.3 % (0-2); EOSINOPHILS 3.8 % (0-7); HEMATOCRIT 39.3 % (36.0-48.0); HEMOGLOBIN 13.6 g/dL (12-16); IMMATURE GRANULOCYTES 0.3 % (0-5); LYMPHOCYTES 22.5 % (15-50); MCH 29.3 pg (26.0-34.0); MCHC 34.6 g/dL (31.0-37.0); MCV 84.7 fL (80.0-100.0); MEAN PLATELET VOLUME 10.8 fL (7.4-10.4); MONOCYTES 4.3 % (2-11); NEUTROPHILS 68.8 % (40-80); PLATELET COUNT 148 10x3/uL (130-400); RBC 4.64 10x6/uL (4.00-5.40); RDW 12.9 % (11.5-14.5); WBC 7.6 10x3/uL (4.8-10.8)
[2018-07-24 00:59] LABS: ALBUMIN 3.8 g/dL (3.4-5.0); ANION GAP 14.7 mmol/L (8-16); BILIRUBIN - TOTAL 0.41 mg/dL (0.2-1.3); C-REACTIVE PROTEIN 0.9 mg/dL (0.0-0.9); CALCIUM 9.2 mg/dL (8.5-10.1); CARBON DIOXIDE 25.2 mmol/L (21.0-32.0); CREATININE - SERUM 0.9 mg/dL (0.6-1.3); POTASSIUM - SERUM 3.9 mmol/L (3.5-5.1); PROTEIN - SERUM 6.8 g/dL (6.4-8.2); URIC ACID 5.4 mg/dL (2.6-7.2)
[2018-07-24 01:40] LABS: ERYTHROCYTE SEDIMENTATION RATE 42 mm/hr (0-30)
[2018-07-24] MEDS ORDERED: CLEOCIN HCL300 MG PO (02:10)
[2018-07-24 02:32] VITALS: BP 134/84
== END 2018-07-24 02:33 | disposition home or self-care (01) ==
LOC: D.ER 00:08
PROVIDERS: Family Medicine
DX: L03.012 Cellulitis of left finger (principal); B19.20 Unspecified viral hepatitis C without hepatic coma; K74.60 Unspecified cirrhosis of liver; J44.9 Chronic obstructive pulmonary disease, unspecified; J45.909 Unspecified asthma, uncomplicated

== ENCOUNTER → 2018-07-28 14:02 | Outpatient (CLI) | payer MEDICAID ==
[2018-07-24 00:15] VITALS: BMI 34.0
[~2018-07-28 14:02] MED LIST changes: +CLEOCIN HCL300 MG PO; +MONODOX100 MG PO
== END | disposition home or self-care (01) ==
LOC: D.MRI 14:02
DX: M86.8X8 Other osteomyelitis, other site (principal)

== ENCOUNTER 2018-09-17 16:28 | Emergency (ER) | payer MEDICAID ==
[~2018-09-17] VITALS: Ht 154.9 cm; Wt 81.8 kg
[2018-09-17 16:38] VITALS: Ht 154.9 cm; Wt 81.8 kg
[2018-09-17 17:10] LABS: BASOPHILS 0.7 % (0-2); EOSINOPHILS 5.4 % (0-7); HEMATOCRIT 40.2 % (36.0-48.0); HEMOGLOBIN 13.9 g/dL (12-16); IMMATURE GRANULOCYTES 0.4 % (0-5); LYMPHOCYTES 24.8 % (15-50); MCH 29.3 pg (26.0-34.0); MCHC 34.6 g/dL (31.0-37.0); MCV 84.8 fL (80.0-100.0); MEAN PLATELET VOLUME 10.3 fL (7.4-10.4); MONOCYTES 4.2 % (2-11); NEUTROPHILS 64.5 % (40-80); PLATELET COUNT 171 10x3/uL (130-400); RBC 4.74 10x6/uL (4.00-5.40); RDW 12.9 % (11.5-14.5); WBC 7.4 10x3/uL (4.8-10.8)
[2018-09-17 17:23] LABS: ALBUMIN 4.1 g/dL (3.4-5.0); ALKALINE PHOSPHATASE 42 U/L (46-116); ALT (SGPT) 22 U/L (10-68); BILIRUBIN - TOTAL 0.67 mg/dL (0.2-1.3); CALC OSMOLALITY 282 mosm/kg (275-300); CALCIUM 9.5 mg/dL (8.5-10.1); CARBON DIOXIDE 21.9 mmol/L (21.0-32.0); CHLORIDE - SERUM 107 mmol/L (98-107); CREATININE - SERUM 0.7 mg/dL (0.6-1.3); GLUCOSE 110 mg/dL (74-106); POTASSIUM - SERUM 3.9 mmol/L (3.5-5.1); PROTEIN - SERUM 7.3 g/dL (6.4-8.2); SODIUM 141 mmol/L (136-145); UREA NITROGEN 16 mg/dL (7-18); eGFR NON AFRICAN AMERICAN > 90 mL/min (90-120)
[2018-09-17 19:52] LABS: APPEARANCE CLEAR (CLEAR); BILIRUBIN NEGATIVE (NEGATIVE); COLOR YELLOW (YELLOW); GLUCOSE NEGATIVE (NEGATIVE); KETONE SMALL mg/dL (NEGATIVE); NITRITE NEGATIVE (NEGATIVE); PROTEIN NEGATIVE (NEGATIVE); SPECIFIC GRAVITY 1.015 (1.005-1.020); UROBILINOGEN NORMAL (NORMAL)
[2018-09-17 19:54] LABS: BACTERIA FEW /hpf (NONE SEEN); RED CELLS - URINE OCC /hpf (0-5); WHITE CELLS - URINE OCC /hpf (0-5)
[2018-09-17] MEDS ORDERED: LEVAQUIN750 MG PO (21:59)
[2018-09-17 22:18] VITALS: BP 106/70
== END 2018-09-17 22:18 | disposition home or self-care (01) ==
LOC: D.ER 16:28
PROVIDERS: Emergency Medicine
DX: J44.1 Chronic obstructive pulmonary disease with (acute) exacerbation (principal); R10.32 Left lower quadrant pain; K74.60 Unspecified cirrhosis of liver; B19.20 Unspecified viral hepatitis C without hepatic coma; R14.0 Abdominal distension (gaseous)

== ENCOUNTER → 2018-10-14 09:02 | Outpatient (CLI) | payer MEDICAID ==
[2018-09-17 16:38] VITALS: BMI 34.0
[~2018-10-14 09:02] MED LIST changes: +LEVAQUIN750 MG PO
[2018-10-14 10:05] LABS: BASOPHILS 0.5 % (0-2); EOSINOPHILS 4.5 % (0-7); HEMATOCRIT 40.1 % (36.0-48.0); HEMOGLOBIN 13.3 g/dL (12-16); IMMATURE GRANULOCYTES 0.5 % (0-5); LYMPHOCYTES 27.1 % (15-50); MCH 29.2 pg (26.0-34.0); MCHC 33.2 g/dL (31.0-37.0); MCV 88.1 fL (80.0-100.0); MEAN PLATELET VOLUME 10.7 fL (7.4-10.4); MONOCYTES 3.5 % (2-11); NEUTROPHILS 63.9 % (40-80); PLATELET COUNT 149 10x3/uL (130-400); RBC 4.55 10x6/uL (4.00-5.40); RDW 13.4 % (11.5-14.5); WBC 5.7 10x3/uL (4.8-10.8)
== END | disposition home or self-care (01) ==
LOC: D.LAB 08:00
PROVIDERS: Internal Medicine Pulmonary Disease
DX: J45.901 Unspecified asthma with (acute) exacerbation (principal)

== ENCOUNTER → 2018-11-02 12:44 | Outpatient (CLI) | payer MEDICAID ==
[2018-09-17 16:38] VITALS: BMI 34.0
[2018-11-02 15:16] LABS: ERYTHROCYTE SEDIMENTATION RATE 14 mm/hr (0-30)
[2018-11-03 10:21] LABS: ANA REFLEX - DIRECT Negative (Negative)
== END | disposition home or self-care (01) ==
LOC: D.RT 12:44
PROVIDERS: Internal Medicine Pulmonary Disease
DX: J45.901 Unspecified asthma with (acute) exacerbation (principal); M79.10 Myalgia, unspecified site

== ENCOUNTER 2019-05-03 13:37 | Emergency (ER) | payer MEDICAID ==
[~2019-05-03] VITALS: Ht 154.9 cm; Wt 84.1 kg
[2019-05-03 14:07] VITALS: Ht 154.9 cm; Wt 84.1 kg
[2019-05-03] MEDS ORDERED: SINGULAIR10 MG PO (14:10)
[2019-05-03] MEDS ORDERED: NEURONTIN 400400 MG PO (14:11)
[2019-05-03] MEDS ORDERED: OXYCONTIN10 MG PO (14:12)
[2019-05-03] MEDS ORDERED: BREO ELLIPTA 21 EACH (14:13)
[2019-05-03 14:43] LABS: BASOPHILS 0 % (0-2); EOSINOPHILS 0 % (0-7); HEMATOCRIT 42.5 % (36.0-48.0); HEMOGLOBIN 14.5 g/dL (12-16); IMMATURE GRANULOCYTES 0.4 % (0-5); LYMPHOCYTES 20.3 % (15-50); MCH 29.4 pg (26.0-34.0); MCHC 34.1 g/dL (31.0-37.0); MCV 86.2 fL (80.0-100.0); MEAN PLATELET VOLUME 10.7 fL (7.4-10.4); MONOCYTES 4.3 % (2-11); PLATELET COUNT 148 10x3/uL (130-400); RBC 4.93 10x6/uL (4.00-5.40); RDW 12.9 % (11.5-14.5); WBC 7.3 10x3/uL (4.8-10.8)
[2019-05-03 14:50] LABS: APPEARANCE CLEAR (CLEAR); BILIRUBIN NEGATIVE (NEGATIVE); COLOR YELLOW (YELLOW); GLUCOSE NEGATIVE (NEGATIVE); KETONE NEGATIVE (NEGATIVE); NITRITE NEGATIVE (NEGATIVE); PROTEIN NEGATIVE (NEGATIVE); UROBILINOGEN NORMAL (NORMAL)
[2019-05-03 14:51] LABS: BACTERIA MODERATE /hpf (NONE SEEN); EPITHELIAL CELLS 0-5 /hpf (0-5); RED CELLS - URINE OCC /hpf (0-5)
[2019-05-03 15:07] LABS: ALBUMIN 4.1 g/dL (3.4-5.0); ALKALINE PHOSPHATASE 51 U/L (46-116); ALT (SGPT) 22 U/L (10-68); CALC OSMOLALITY 281 mosm/kg (275-300); CALCIUM 9.1 mg/dL (8.5-10.1); CARBON DIOXIDE 25.5 mmol/L (21.0-32.0); CHLORIDE - SERUM 105 mmol/L (98-107); CREATININE - SERUM 0.8 mg/dL (0.6-1.3); GLUCOSE 149 mg/dL (74-106); POTASSIUM - SERUM 4.1 mmol/L (3.5-5.1); PROTEIN - SERUM 7.3 g/dL (6.4-8.2); SODIUM 140 mmol/L (136-145); UREA NITROGEN 13 mg/dL (7-18); eGFR NON AFRICAN AMERICAN 78 mL/min (90-120)
[2019-05-03 15:09] LABS: AMYLASE - SERUM 51 U/L (25-115); LIPASE 193 U/L (73-393)
[2019-05-03 15:30] LABS: TROPONIN-I < 0.017 ng/mL (0.000-0.060)
[2019-05-03] MEDS ORDERED: SORBITOL4000 ML PO (16:02)
[2019-05-03] MEDS ORDERED: DULCOLAX5 MG PO (16:02)
[2019-05-03] MEDS ORDERED: MACROBID100 MG PO (16:02)
[2019-05-03] MEDS ORDERED: CHRONULAC30 ML PO (16:02)
[2019-05-03 16:55] VITALS: BP 116/88
== END 2019-05-03 16:55 | disposition home or self-care (01) ==
LOC: D.ER 13:37
PROVIDERS: Family Medicine
DX: N39.0 Urinary tract infection, site not specified (principal); K59.00 Constipation, unspecified

== ENCOUNTER → 2019-06-24 09:56 | Outpatient (CLI) | payer MEDICAID ==
[2019-05-03 14:07] VITALS: BMI 35.0
[~2019-06-24 09:56] MED LIST changes: +CHRONULAC30 ML PO; +DULCOLAX5 MG PO; +MACROBID100 MG PO; +NEURONTIN 400400 MG PO; +SORBITOL4000 ML PO
== END | disposition home or self-care (01) ==
LOC: D.MAMMO 09:56
PROVIDERS: ATTEND Family Medicine
DX: N64.4 Mastodynia (principal)

== ENCOUNTER 2019-08-15 16:45 | Emergency (ER) | payer MEDICAID ==
[~2019-08-15] VITALS: Ht 154.9 cm; Wt 80.9 kg
[2019-08-15 16:52] VITALS: Ht 154.9 cm; Wt 80.9 kg
[2019-08-15] MEDS ORDERED: SPIRIVA18 MCG INH (16:55)
[2019-08-15 17:23] LABS: BASOPHILS 0 % (0-2); EOSINOPHILS 0 % (0-7); HEMATOCRIT 43.9 % (36.0-48.0); HEMOGLOBIN 14.5 g/dL (12-16); IMMATURE GRANULOCYTES 0.3 % (0-5); LYMPHOCYTES 26.5 % (15-50); MCH 28.9 pg (26.0-34.0); MCV 87.6 fL (80.0-100.0); MEAN PLATELET VOLUME 10.6 fL (7.4-10.4); MONOCYTES 4.2 % (2-11); RBC 5.01 10x6/uL (4.00-5.40); RDW 12.7 % (11.5-14.5); WBC 7.1 10x3/uL (4.8-10.8)
[2019-08-15 17:32] LABS: CALC OSMOLALITY 282 mosm/kg (275-300); CALCIUM 9.7 mg/dL (8.5-10.1); CARBON DIOXIDE 23.5 mmol/L (21.0-32.0); CHLORIDE - SERUM 106 mmol/L (98-107); GLUCOSE 134 mg/dL (74-106); POTASSIUM - SERUM 4.2 mmol/L (3.5-5.1); SODIUM 141 mmol/L (136-145); UREA NITROGEN 13 mg/dL (7-18); eGFR NON AFRICAN AMERICAN 61 mL/min (90-120)
[2019-08-15 17:50] LABS: ALBUMIN 4.1 g/dL (3.4-5.0); ALKALINE PHOSPHATASE 45 U/L (46-116); ALT (SGPT) 25 U/L (10-68); BILIRUBIN - TOTAL 0.73 mg/dL (0.2-1.3); CREATINE KINASE 34 UL (21-215); PROTEIN - SERUM 7.7 g/dL (6.4-8.2)
[2019-08-15 17:51] LABS: TROPONIN-I < 0.017 ng/mL (0.000-0.060)
[2019-08-15 18:06] LABS: PLATELET COUNT 191 10x3/uL (130-400)
[2019-08-15] MEDS ORDERED: TYLENOL W/CODEI1 TAB PO (19:59)
[2019-08-15] MEDS ORDERED: ZPAK PO (19:59)
[2019-08-15] MEDS ORDERED: STERAPRED DS 1010 MG PO (19:59)
[2019-08-15 21:05] VITALS: BP 131/69
== END 2019-08-15 20:55 | disposition home or self-care (01) ==
LOC: D.ER 16:45
PROVIDERS: Emergency Medicine
DX: J40 Bronchitis, not specified as acute or chronic (principal); J06.9 Acute upper respiratory infection, unspecified; J44.9 Chronic obstructive pulmonary disease, unspecified

== ENCOUNTER → 2020-02-14 17:02 | Outpatient (CLI) | payer OTHER ==
[2019-08-15 16:52] VITALS: BMI 33.7
[~2020-02-14 17:02] MED LIST changes: +SPIRIVA18 MCG INH; +STERAPRED DS 1010 MG PO; +TYLENOL W/CODEI1 TAB PO
[2020-02-14 17:12] LABS: BASOPHILS 0.6 % (0-2); EOSINOPHILS 2.7 % (0-7); HEMATOCRIT 44.5 % (36.0-48.0); HEMOGLOBIN 14.5 g/dL (12-16); IMMATURE GRANULOCYTES 0.4 % (0-5); MCH 29.1 pg (26.0-34.0); MCHC 32.6 g/dL (31.0-37.0); MCV 89.2 fL (80.0-100.0); MEAN PLATELET VOLUME 11.2 fL (7.4-10.4); MONOCYTES 3.1 % (2-11); NEUTROPHILS 71.2 % (40-80); PLATELET COUNT 185 10x3/uL (130-400); RBC 4.99 10x6/uL (4.00-5.40); RDW 12.6 % (11.5-14.5)
== END | disposition home or self-care (01) ==
LOC: D.LABREF 17:02
PROVIDERS: ATTEND Internal Medicine Pulmonary Disease
DX: J82 Pulmonary eosinophilia, not elsewhere classified (principal)

== ENCOUNTER 2020-03-03 06:43 | Emergency (ER) | payer OTHER ==
[~2020-03-03] VITALS: Ht 154.9 cm; Wt 81.8 kg
[2020-03-03 06:53] VITALS: Ht 154.9 cm; Wt 81.8 kg
[2020-03-03 07:21] LABS: BASOPHILS 0 % (0-2); EOSINOPHILS 0.1 % (0-7); HEMATOCRIT 41.7 % (36.0-48.0); HEMOGLOBIN 13.5 g/dL (12-16); IMMATURE GRANULOCYTES 0.4 % (0-5); LYMPHOCYTES 24.2 % (15-50); MCH 28.9 pg (26.0-34.0); MCHC 32.4 g/dL (31.0-37.0); MCV 89.3 fL (80.0-100.0); MEAN PLATELET VOLUME 10.9 fL (7.4-10.4); MONOCYTES 5.6 % (2-11); NEUTROPHILS 69.7 % (40-80); PLATELET COUNT 166 10x3/uL (130-400); RBC 4.67 10x6/uL (4.00-5.40); RDW 12.6 % (11.5-14.5); WBC 6.8 10x3/uL (4.8-10.8)
[2020-03-03 07:28] LABS: CALC OSMOLALITY 279 mosm/kg (275-300); CALCIUM 8.7 mg/dL (8.5-10.1); CHLORIDE - SERUM 103 mmol/L (98-107); CREATININE - SERUM 0.9 mg/dL (0.6-1.3); SODIUM 137 mmol/L (136-145); UREA NITROGEN 10 mg/dL (7-18); eGFR NON AFRICAN AMERICAN 68 mL/min (90-120)
[2020-03-03 07:30] LABS: GLUCOSE 230 mg/dL (74-106)
[2020-03-03 07:36] LABS: ALBUMIN 3.7 g/dL (3.4-5.0); ALKALINE PHOSPHATASE 53 U/L (30-120); ALT (SGPT) 28 U/L (10-68); BILIRUBIN - TOTAL 0.74 mg/dL (0.2-1.3); CREATINE KINASE 33 UL (21-215); MAGNESIUM - SERUM 2.1 mg/dL (1.8-2.4); PROTEIN - SERUM 6.7 g/dL (6.4-8.2)
[2020-03-03 07:37] LABS: TROPONIN-I < 0.017 ng/mL (0.000-0.060)
[2020-03-03 07:43] LABS: APTT 27.8 SECONDS (22.8-39.4); INR 1.02 (0.85-1.17); PROTIME 13.3 SECONDS (11.6-15.0)
[2020-03-03 08:03] LABS: CKMB 0.3 U/L (0.0-3.6)
[2020-03-03] MEDS ORDERED: NAPROSYN500 MG PO (08:05)
[2020-03-03] MEDS ORDERED: TYLENOL #4 W/CO1 TAB PO (08:07)
[2020-03-03 08:14] VITALS: BP 128/74
== END 2020-03-03 08:15 | disposition home or self-care (01) ==
LOC: D.ER 06:43
PROVIDERS: Family Medicine
DX: M94.0 Chondrocostal junction syndrome [Tietze] (principal); E11.40 Type 2 diabetes mellitus with diabetic neuropathy, unspecified; J44.9 Chronic obstructive pulmonary disease, unspecified; R07.9 Chest pain, unspecified

== ENCOUNTER 2020-03-08 13:01 | Inpatient (IN) | payer OTHER ==
[~2020-03-08] VITALS: Ht 154.9 cm; Wt 82.6 kg
[~2020-03-08 13:01] MED LIST changes: +NAPROSYN500 MG PO; +TYLENOL #4 W/CO1 TAB PO
[2020-03-08 13:38] LABS: BASOPHILS 0 % (0-2); EOSINOPHILS 0 % (0-7); HEMOGLOBIN 13.9 g/dL (12-16); IMMATURE GRANULOCYTES 0.4 % (0-5); LYMPHOCYTES 23.9 % (15-50); MCH 28.5 pg (26.0-34.0); MCHC 32.3 g/dL (31.0-37.0); MCV 88.3 fL (80.0-100.0); MEAN PLATELET VOLUME 10.8 fL (7.4-10.4); MONOCYTES 4.6 % (2-11); NEUTROPHILS 71.1 % (40-80); RBC 4.87 10x6/uL (4.00-5.40); RDW 12.5 % (11.5-14.5); WBC 5.2 10x3/uL (4.8-10.8)
[2020-03-08 13:39] LABS: PLATELET COUNT 221 10x3/uL (130-400)
[2020-03-08 13:50] LABS: CALC OSMOLALITY 280 mosm/kg (275-300); CALCIUM 9.5 mg/dL (8.5-10.1); CARBON DIOXIDE 26.1 mmol/L (21.0-32.0); CHLORIDE - SERUM 102 mmol/L (98-107); GLUCOSE 216 mg/dL (74-106); POTASSIUM - SERUM 4.2 mmol/L (3.5-5.1); SODIUM 137 mmol/L (136-145); UREA NITROGEN 13 mg/dL (7-18); eGFR NON AFRICAN AMERICAN 60 mL/min (90-120)
[2020-03-08 13:56] VITALS: BP 152/97
[2020-03-08 13:57] LABS: ALBUMIN 4.2 g/dL (3.4-5.0); ALKALINE PHOSPHATASE 46 U/L (30-120); ALT (SGPT) 37 U/L (10-68); AMYLASE - SERUM 35 U/L (25-115); BILIRUBIN - TOTAL 0.68 mg/dL (0.2-1.3); LIPASE 106 U/L (73-393); PROTEIN - SERUM 7.7 g/dL (6.4-8.2)
[2020-03-08 14:10] LABS: TROPONIN-I < 0.017 ng/mL (0.000-0.060)
--- NOTE | 2020-03-08 14:25 | NUR ---
TO CT VIA STRETCHER WITH ROUTER OPERATOR RADIAL.
[2020-03-08 14:42] VITALS: BP 133/78
--- NOTE | 2020-03-08 14:43 | NUR ---
RTND FROM CT, CONTINUES TO C/O 07/21 PAIN. ENEDINA, NOTIFIED
[2020-03-08 14:50] LABS: BILIRUBIN NEGATIVE (NEGATIVE); GLUCOSE 250 mg/dL (NEGATIVE); KETONE NEGATIVE (NEGATIVE); NITRITE NEGATIVE (NEGATIVE); SPECIFIC GRAVITY 1.025 (1.005-1.020); UROBILINOGEN NORMAL (NORMAL)
[2020-03-08 15:11] VITALS: BP 140/74
--- NOTE | 2020-03-08 16:25 | NUR ---
TO US VIA WC WITH US TECH
[2020-03-08 16:51] VITALS: BP 125/69
--- NOTE | 2020-03-08 16:51 | NUR ---
RTN FROM US, C/O TO C/O LLQ PAIN. ELIA MCCONNELL NOTIFIED
[2020-03-08 18:00] VITALS: BP 127/74
--- NOTE | 2020-03-08 19:03 | NUR ---
TO OR WITH OR NURSE, CONDITION STABLE
--- NOTE | 2020-03-08 22:10 | NUR ---
PATIENT ARRIVED FROM RECOVERY ROOM. NO S/S OF ACUTE DISTRESS. NO C/O AT THIS TIME. PATIENT IS ON 3L OF O2 NASAL CANNULA. PATIENT HAS LEFT AC IV LR @ 125 ML/HR. IV IS PATENT WITHOUT REDNESS, SWELLING, OR TENDERNESS. PATIENT HAS 3 LAP SITES- ONE IN THE BELLY BUTTON, ONE MIDLINE ABOVE PUBIC AREA. A DRESSING C/D/I. CALL LIGHT WITHIN REACH. WILL CONTINUE TO MONITOR.
[2020-03-08 22:38] VITALS: BP 129/66; BMI 34.4
[2020-03-09] VITALS: BP 129/66
[2020-03-09 04:00] VITALS: BP 156/75
--- NOTE | 2020-03-09 06:38 | NUR ---
PATIENT'S PAIN HAS STEADILY INCREASED THROUGHOUT THE NIGHT. PATIENT STATES, "I THINK THIS PAIN WILL BE THE OF ME. THE DILAUDID HASN'T HELP AT ALL." PATIENT'S RIGHT UPPER QUADRANT IS SWOLLEN COMPARED TO LAST NIGHT. WHEN PATIENT GETS UP TO GO TO THE BATHROOM SHE CUPS HER LOWER ABDOMEN WITH HER ARMS AND CAN BARELY STAND UPRIGHT. PATIENT INSISTED IN AMBULATING TO THE BATHROOM. CALL LIGHT IN PLACE. WILL CONTINUE TO MONITOR.
[2020-03-09 06:40] LABS: BASOPHILS 0 % (0-2); EOSINOPHILS 0 % (0-7); HEMATOCRIT 36.3 % (36.0-48.0); HEMOGLOBIN 11.5 g/dL (12-16); IMMATURE GRANULOCYTES 0.3 % (0-5); LYMPHOCYTES 18.9 % (15-50); MCH 28.2 pg (26.0-34.0); MCHC 31.7 g/dL (31.0-37.0); MEAN PLATELET VOLUME 10.4 fL (7.4-10.4); MONOCYTES 5.2 % (2-11); NEUTROPHILS 75.6 % (40-80); RBC 4.08 10x6/uL (4.00-5.40); RDW 12.6 % (11.5-14.5); WBC 6.2 10x3/uL (4.8-10.8)
[2020-03-09 06:52] LABS: PLATELET COUNT 173 10x3/uL (130-400)
[2020-03-09 06:55] LABS: ALBUMIN 3.2 g/dL (3.4-5.0); ALKALINE PHOSPHATASE 34 U/L (30-120); ALT (SGPT) 30 U/L (10-68); BILIRUBIN - TOTAL 0.57 mg/dL (0.2-1.3); CALC OSMOLALITY 278 mosm/kg (275-300); CALCIUM 8.4 mg/dL (8.5-10.1); CARBON DIOXIDE 24.6 mmol/L (21.0-32.0); CHLORIDE - SERUM 105 mmol/L (98-107); CREATININE - SERUM 0.8 mg/dL (0.6-1.3); GLUCOSE 176 mg/dL (74-106); POTASSIUM - SERUM 3.6 mmol/L (3.5-5.1); PROTEIN - SERUM 5.8 g/dL (6.4-8.2); SODIUM 138 mmol/L (136-145); UREA NITROGEN 10 mg/dL (7-18); eGFR NON AFRICAN AMERICAN 78 mL/min (90-120)
[2020-03-09 08:00] VITALS: BP 125/82
--- NOTE | 2020-03-09 09:14 | NUR ---
PT RESTING RECLINED IN BED WITH EYES CLOSED, BREATHING EVEN AND UNLABORED UPON ENTERING. NO S/S OF DISTRESS NOTED. EASILY AROUSES TO VOICE. PT COMPLAINS OF PAIN, ADMINISTERED PRN PERCOCET PAIN 10/. ASSESSMENT PERFORMED AT THIS TIME. PT IS NOW UPRIGHT IN BED, ATTEMPTING TO EAT BREAKFAST, REPORTS HAVING VERY LITTLE APETTITE DUE TO SEVER ABDOMINAL PAIN. DENIES ANY OTHER NEEDS AT THIS TIME. WILL CONTINUE TO MONITOR.
--- NOTE | 2020-03-09 11:37 | NUR ---
ADMINISTERED NEWLY ORDERED MEDICATIONS, TOLERATED WELL. PT IS RESTING IN BED, STILL VERY UNCOMFORTABLE, PAIN IS A 9/10. DR. HAYNES HAS BEEN CONSULTED. SPOKE WITH THE DAUGHTER ON THE PHONE AT LENGTH ABOUT THE PATIENT, HER STATUS AND WHAT THE PLAN OF ACTION WAS FOR TODAY. SHE SEEMED SATISFIED WITH THE CARE HER MOTHER IS RECEIVING. PT DENIES ANY NEEDS. WILL CONTINUE TO MONITOR.
[2020-03-09 12:00] VITALS: BP 123/76
[2020-03-09 12:43] VITALS: Ht 154.9 cm; Wt 82.6 kg
[2020-03-09 12:54] LABS: BASOPHILS 0 % (0-2); EOSINOPHILS 0 % (0-7); HEMATOCRIT 35.7 % (36.0-48.0); HEMOGLOBIN 11.5 g/dL (12-16); IMMATURE GRANULOCYTES 0.1 % (0-5); MCH 28.9 pg (26.0-34.0); MCHC 32.2 g/dL (31.0-37.0); MCV 89.7 fL (80.0-100.0); MEAN PLATELET VOLUME 10.1 fL (7.4-10.4); MONOCYTES 6.8 % (2-11); NEUTROPHILS 79.1 % (40-80); PLATELET COUNT 167 10x3/uL (130-400); RBC 3.98 10x6/uL (4.00-5.40); RDW 12.7 % (11.5-14.5); WBC 6.9 10x3/uL (4.8-10.8)
--- NOTE | 2020-03-09 13:21 | NUR ---
ASSISTED PT TO COMMODE AND BACK. LAP SITE IN BELLY BUTTON IS BLEEDING A VERY SMALL AMOUNT. SITUATED BACK IN BED. PT IS STILL IN SEVERE PAIN. DENIES ANY NEEDS CURRENTLY THOUGH. PT FEELS HER SUGAR IS HIGHER THAN SHE NORMALLY LETS IT GET AT HOME, NO CURRENT ORDERS FOR INSULIN. CONTACTING DR. CARTWRIGHT. WILL CONTINUE TO MONITOR.
--- NOTE | 2020-03-09 14:28 | NUR ---
GAVE PRN PERCOCET FOR PAIN 06/21. ASSESSED BLOOD SUGAR AGAIN AFTER RECEIVING ORDER FOR INSULIN, 246. RECEIVED 4 UNITS INSULIN PER SLIDING SCALE. RESTING IN BED. DENIES ANY NEEDS. WILL CONTINUE TO MONITOR.
--- NOTE | 2020-03-09 15:14 | NUR ---
LYING IN BED,WITHOUT NEEDS.CALL LIGHT IN REACH
[2020-03-09 16:00] VITALS: BP 104/65
--- NOTE | 2020-03-09 17:13 | NUR ---
ADMINISTERED MEDICAITON AND ASSESSED BLOOD SUGAR, 193. PT DENIES INSULIN AND REQUESTED TO WAIT UNTIL NEXT CHECK. UPRIGHT IN BED ATTEMPTING TO EAT SOME DINNER. NPO ORDER FOR AFTER MIDNIGHT, SHEET IS ON THE DOOR, PT HAS ON ARM BAND, PROVIDED PT WITH NEW SHEET AND YELLOW GOWN. DENIES ANY OTHER NEEDS. WILL CONTINUE TO MONITOR.
--- NOTE | 2020-03-09 18:11 | NUR ---
RECEIVED GOLYTELY FROM PHARMACY, DILUTED PER INSTRUCTIONS, ICED IT IN A BUCKET AND INSTRUCTED PT TO DRINK ALL OF IT. RESTING COMFORTABLY IN BED. DENIES ANY NEEDS AT THIS TIME. WILL CONTINUE TO MONITOR.
--- NOTE | 2020-03-09 18:54 | NUR ---
REMOVED IV FROM LEFT AC DUE TO SWELLING AND INFILTRATION. TIP INTACT, COVERED WITH 2X2 AND TAPE, TOLERATED WELL. RESTARTED IV IN THE LEFT HAND. VISITOR AT BEDSIDE. PT IS DRINKING GOLYTELY. DENIES ANY NEEDS. WILL CONTINUE TO MONITOR.
--- NOTE | 2020-03-09 19:00 | NUR ---
BEDSIDE REPORT RECEIVED AND CARE OF PT ASSUMED. PT LYING IN HIGH FOWLERS POSITION DRINKING GO-LYTELY PER ORDER. IV TO LEFT HAND PATENT WITH LR INFUSING AT 150 ML/HR. WILL MONITOR FOR NEEDS.
[2020-03-09 20:00] VITALS: BP 106/65
--- NOTE | 2020-03-09 20:45 | NUR ---
HS MEDICATIONS GIVEN TO INCLUDE PERCOCCET PO PER REQUEST FOR PAIN. FSBS 233 THIS CHECK REQUIRING COVERAGE WITH 4 UNITS OF INSULIN PER SLIDING SCALE.
[2020-03-10] VITALS: BP 108/64
[2020-03-10 04:00] VITALS: BP 111/60
--- NOTE | 2020-03-10 04:53 | NUR ---
HELD EARLIER FLAGYL PO MED PT NPO. GAVE PERCOCET X2 PO THIS AM FOR C/O SEVERE PAIN...PT ONLY HAS PO MEDS FOR PAIN SO GAVE WITH SIPS OF WATER.
[2020-03-10 08:33] VITALS: BP 117/67
--- NOTE | 2020-03-10 09:17 | NUR ---
PT ALERT X 4. BREATH SOUNDS CLEAR BILAT. IV TO LEFT HAND, PATENT, DRESSING CDI. ABDOMEN DISTENDED AND TENDER. LAP SITE AT UMBILICUS WITH SLIGHT DRAINAGE. PT REPORTING PAIN OF 8/10, GIVEN MORNING MEDS PER ORDERS, WILL MONITOR. BED LOW, CALL LIGHT IN REACH. NO OTHER NEEDS AT THIS TIME.
[2020-03-10 12:00] VITALS: BP 123/74
--- NOTE | 2020-03-10 15:38 | NUR ---
AMBULATED PT AROUND FLOOR. ADMINISTERED FLEET ENEMA PER ORDERS. PT DID NOT TOLERATE WELL. ADMINISTERED IN 2 FLUSHES. ENCOURAGED PT TO DRINK MORE FLUIDS. WILL CONTINUE TO MONITOR.
[2020-03-10 16:00] VITALS: BP 135/81
--- NOTE | 2020-03-10 19:00 | NUR ---
BEDSIDE REPORT RECEIVED AND CARE OF PT ASSUMED. PT LYING IN LOW SUNG'S POSITION. IV TO LEFT HAND PATENT WITH LR INFUSING AT 125 ML/HR. WILL MONITOR FOR NEEDS.
[2020-03-10 20:00] VITALS: BP 132/76
--- NOTE | 2020-03-10 20:29 | NUR ---
HS MEDICATIONS GIVEN. FSBS 181 THIS CHECK REQUIRING COVERAGE WITH 2 UNITS OF INSULIN PER SLIDING SCALE. WILL CONTINUE TO MONITOR FOR NEEDS.
--- NOTE | 2020-03-10 21:55 | NUR ---
GAVE PERCOCET X2 5 MG PO AND ZOFRAN 4 MG IVP PER PT REQUST FOR PAIN AND NAUSEA...PT TEARFUL AND MOANING LOUDLY. WILL MONITOR FOR EFFECTIVENESS.
[2020-03-11] VITALS: BP 151/76
--- NOTE | 2020-03-11 00:30 | NUR ---
PT REFUSED FLEETS KENTON CONNER, STATING THAT SHE HAD A LARGE BM AND ONLY WANTED TO TRY SOME PRUNE JUICE AT THIS TIME...GAVE 8 OZ. WILL CONTINUE TO MONITOR FOR NEEDS.
[2020-03-11 04:00] VITALS: BP 104/70
[2020-03-11 08:00] VITALS: BP 98/57
--- NOTE | 2020-03-11 11:37 | NUR ---
DR. CROCKETT NOTIFIED AND REVIEWED PT'S BEHAVIOR AND ASSESSMENT RESULTS. PT. IS A LOW RISK PER DR. CROCKETT. DR. CROCKETT STATED TO GIVE RESOURCES TO PT AT TIME OF DISCHARGE. NO FURTHER ORDERS AT THIS TIME. RESOURCES REVIEWD WITH PT AND VERBALIZED UNDERSTANDING. PT REPORTS " I JUST GET VERY LONELY, I GOT SICK AND I AM NOT GOOD ENOUGH FOR MY ANYMORE." WE LIVE TOGETHER, BUT HAVE SEPERATE ROOMS, I HAVE NO WHERE ELSE TO GO." IT HURTS AFTER 30 YEARS OF MARRIAGE, I GOT SICK AND HE DOESNT CARE ABOUT ME PER PT REPORT. PT IS VERY TEARFUL AT THIS TIME. PT STATES " I WOULD NEVER HURT MYSELF, BECAUSE I WANT TO GO TO [facility], BUT I AM NOT HAPPY WITH MY SITUATION, BUT WHAT ELSE CAN I DO, ITS JUST LIFE." ASSESSMENT RESULTS REPORTED TO PT'S NURSE. PT THANKED THIS NURSE FOR TALKING WITH HER AND MAKING HER FEEL A LITTLE BETTER.
[2020-03-11 12:00] VITALS: BP 139/92
[2020-03-11 16:00] VITALS: BP 134/76
--- NOTE | 2020-03-11 19:00 | NUR ---
BEDSIDE REPORT RECEIVED AND CARE OF PT ASSUMED. PT OFF UNIT AT THIS TIME GETTING A CTA PERFORMED.
--- NOTE | 2020-03-11 19:40 | NUR ---
PAGED DR CARTWRIGHT TO GIVE RESULTS OF CTA. RECEIVED ORDERS TO INCREASE USE OF IS. ALSO RECIEVED ORDERS FOR PRN XANAX 0.25MG AND PRN BENADRYL 25 MG FOR QHS.
--- NOTE | 2020-03-11 19:50 | NUR ---
CALLED RT TO GIVE PRN UPDRAFT TREATMENT FOR SOB AND COUGH.
--- NOTE | 2020-03-11 20:46 | NUR ---
HS MEDICATIONS GIVEN TO INCLUDE PERCOCET PO, XANAX PO AND BENADRYL PO. WILL CONTINUE TO MONITOR FOR NEEDS.
[2020-03-11 21:01] VITALS: BP 114/57
[2020-03-12 00:21] VITALS: BP 110/69
[2020-03-12 06:10] VITALS: BP 114/73
[2020-03-12 08:16] VITALS: BP 122/77
--- NOTE | 2020-03-12 09:28 | NUR ---
PT RESTING QUIETLY IN BED. RESP EVEN AND UNLABORED. INSTRUCTED PT STAFF THERE TO ADMINISTER AM MEDICATIONS, DISCUSSING EACH MEDICATION. SHE REFUSES DULCOLAX SUPP, STATING "I'M HAVING BOWEL MOVEMENTS, ITS CLEAR BUT I AM USING THE BATHROOM. I HAVENT HAD ANYTHING TO EAT, ONLY TO DRINK. WHAT DO THEY THINK." PROVIDED EDUCATION REGARDING MEDICATIONS, BUT CONTINUED TO REFUSE DULCOLAX. PT DID TAKE OTHER PRESCRIBED AM MEDICATIONS. DENIES FURTHER NEEDS AT THIS TIME. CL WITHIN REACH. ENCOURAGED TO CALL WITH NEEDS. CONTINUE POC
[2020-03-12 12:11] VITALS: BP 136/84
[2020-03-12] MEDS ORDERED: BUTALB-APAP-CA1 EACH PO (12:41)
--- NOTE | 2020-03-12 12:41 | MORECARE ---
CASE MANAGEMENT DISCHARGE SUMMARY PATIENT: LAZARUS HECTOR UNIT: [id number] ADM DATE: 03/10/20 AGE: 59 : 62 SEX: F ROOM/BED: D.2223 AUTHOR: CHAD BROWN PHYSICIAN: REFERRING PHYSICIAN: GALINDO PANDA MD DATE OF SERVICE: 03/12/20 Discharge Plan Patient Name: LAZARUS HECTOR Facility: [facility]:[place] : 1960 Planned Disposition: Anticipated Discharge Date: Discharge Date: Expected LOS: Initial Reviewer: [email or web address] Initial Review Date: 03/08/2020 Generated: 03/12/20 1:41 pm Comments DCP- Discharge Planning Updated by [email or web address]: Marcy Rogel on 03/12/20 11:[address] Patient Name: LAZARUS HECTOR Admission Status: ER Accout number: [id number] Admission Date: 03-10-2020 : 1960 Admission Diagnosis: Attending: Galindo Panda Current LOS: 2 Anticipated DC Date: Planned Disposition: Primary Insurance: [facility] MANAGED MEDICAID Discharge Planning Comments: CM met with patient at bedside after explaining CM role and obtaining verbal consent. CM discussed availability / needs of home health, REHAB and medical equipment. PATIENT DENIES ANY DISCHARGE NEEDS. STATES SON WILL PICK HER UP AT TIME OF DISCHARGE. Insurance Inspector: Marcy Rogel DCPIA - Discharge Planning Initial Assessment Updated by [email or web address]: Marcy Rogel on 03/12/20 12:38 pm * Is the patient Alert and Oriented? Yes * PCP NOHEMY * Pharmacy [facility] * Preadmission Environment Home with Family * ADLs Independent * Other Equipment NEBULIZER * Community resources currently utilized None * Additional services required to return to the preadmission environment? No * Can the patient safely return to the preadmission environment? Yes * Has this patient been hospitalized within the prior 30 days at any hospital? No Patient Name: LAZARUS HECTOR Page [phone] at 1241 All edits/amendments must be made on the electronic document DICTATION DATE: 03/12/20 1241 FLOOR SERVICE WORKER SPRING: ELISEO 03/12/20 1241 RPT#: [id number] DC DATE: STATUS: ADM IN [facility] [address] [place] [address] END OF REPORT
--- NOTE | 2020-03-12 13:43 | NUR ---
DISCHARGE PAPERWORK PROVIDED WITH PRESCRIPTION. EDUCATED PT REGARDING S/S TO MONITOR FOR, STRESSED NO HEAVY LIFTING OR SEXUAL ACTIVITY UNTIL FOLLOW UP WITH DR. PANDA. SALINE LOC'S TO LEFT AC AND LEFT HAND D/C'D FOR DISCHARGE. CATHS INTACT. PT DENIES QUESTIONS AT THIS TIME.
--- NOTE | 2020-03-13 09:07 | MORECARE ---
CASE MANAGEMENT DISCHARGE SUMMARY PATIENT: LAZARUS HECTOR UNIT: [id number] ADM DATE: 03/10/20 AGE: 59 : 62 SEX: F ROOM/BED: D.2223 AUTHOR: CHAD BROWN PHYSICIAN: REFERRING PHYSICIAN: GALINDO PANDA MD DATE OF SERVICE: 03/13/20 Discharge Plan Patient Name: LAZARUS HECTOR Facility: [facility]:[place] : 1960 Planned Disposition: Anticipated Discharge Date: Discharge Date: 03/12/2020 Expected LOS: Initial Reviewer: [email or web address] Initial Review Date: 03/08/2020 Generated: 03/13/20 10:06 am Comments DCP- Discharge Planning Updated by [email or web address]: Marcy Rogel on 03/12/20 11:[address] Patient Name: LAZARUS HECTOR Admission Status: ER Accout number: [id number] Admission Date: 03-10-2020 : 1960 Admission Diagnosis: Attending: Galindo Panda Current LOS: 2 Anticipated DC Date: Planned Disposition: Primary Insurance: [facility] MANAGED MEDICAID Discharge Planning Comments: CM met with patient at bedside after explaining CM role and obtaining verbal consent. CM discussed availability / needs of home health, REHAB and medical equipment. PATIENT DENIES ANY DISCHARGE NEEDS. STATES SON WILL PICK HER UP AT TIME OF DISCHARGE. Venetian Blind Mechanic: Marcy Rogel DCPIA - Discharge Planning Initial Assessment Updated by [email or web address]: Marcy Rogel on 03/12/20 12:38 pm * Is the patient Alert and Oriented? Yes * PCP NOHEMY * Pharmacy [facility] * Preadmission Environment Home with Family * ADLs Independent * Other Equipment NEBULIZER * Community resources currently utilized None * Additional services required to return to the preadmission environment? No * Can the patient safely return to the preadmission environment? Yes * Has this patient been hospitalized within the prior 30 days at any hospital? No Last DP export: 03/12/20 11:41 am Patient Name: LAZARUS HECTOR Page [id number] at 0907 All edits/amendments must be made on the electronic document DICTATION DATE: 03/13/20906 HEALTH PROGRAM MANAGER: DM 03/13/20906 RPT#: [id number] DC DATE:03/12/20 STATUS: DIS IN [facility] [address] [place] [address] END OF REPORT
== END 2020-03-12 14:13 | disposition home or self-care (01) | DRG 358 ==
LOC: D.ER 13:01 → OBSVTIME 20:51 → D.MS 20:51
PROVIDERS: Family Medicine; Student in an Organized Health Care Education/Training Program; ADMIT Obstetrics & Gynecology; ATTEND Obstetrics & Gynecology
PROC: 0UT24ZZ Resection of Bilateral Ovaries, Percutaneous Endoscopic Approach (ICD-10-PCS; 2020-03-08)
PROC: 0WJJ4ZZ Inspection of Pelvic Cavity, Percutaneous Endoscopic Approach (ICD-10-PCS; principal; 2020-03-08 19:37)
PROC: 0UT74ZZ Resection of Bilateral Fallopian Tubes, Percutaneous Endoscopic Approach (ICD-10-PCS; 2020-03-08 19:37)
DX: K59.03 Drug induced constipation (principal); T50.995A Adverse effect of other drugs, medicaments and biological substances, initial encounter; E11.9 Type 2 diabetes mellitus without complications; F32.9 Major depressive disorder, single episode, unspecified; R10.32 Left lower quadrant pain

== ENCOUNTER 2020-11-20 15:09 | Inpatient (IN) | payer OTHER ==
[~2020-11-20] VITALS: Ht 154.9 cm; Wt 90.2 kg
[~2020-11-20 15:09] MED LIST changes: +BUTALB-APAP-CA1 EACH PO; +CYCLOBENZAPRINE10 MG PO; +DECADRON4 MG PO; +DULERA 200 MCG8.8 GM INH; +MELATONIN 3 MG1 TAB PO; +MUCINEX DM ER1 EAC1 PO; +NEURONTIN600 MG PO; +OMNICEF300 MG PO; +OXYCODONE HCL10 MG PO; +PEPCID PO; +PIOGLITAZONE15 MG PO; +PROAIR HFA8.5 G1 INH; +PROMETHAZINE W473 ML PO; +TESSALON PERLE100 MG PO; +VITAMIN B-1100 M1 PO; +VITAMIN C PO; +VITAMIN D325 MC1 PO; +ZINC-220220 MG PO
[2020-11-20] MEDS ORDERED: BREO ELLIPTA 21 EACH (15:20)
[2020-11-20] MEDS ORDERED: TESSALON PERLE100 MG PO (15:20)
[2020-11-20 15:58] LABS: HEMATOCRIT 41.2 % (36.0-48.0); HEMOGLOBIN 13.1 g/dL (12-16); LYMPHOCYTE ABS# 0.63 10x3/uL (1.18-3.74); MCHC 31.8 g/dL (31.0-37.0); MCV 91.2 fL (80.0-100.0); MEAN PLATELET VOLUME 10.6 fL (7.4-10.4); NEUTROPHIL ABS# 8.03 10x3/uL (1.56-6.13); RBC 4.52 10x6/uL (4.00-5.40); RDW 14.8 % (11.5-14.5); WBC 10.4 10x3/uL (4.8-10.8)
[2020-11-20 16:01] LABS: PLATELET COUNT 154 10x3/uL (130-400)
[2020-11-20 16:02] LABS: APTT 21.3 SECONDS (22.8-39.4); INR 1.07 (0.85-1.17); PROTIME 12.9 SECONDS (11.6-15.0)
[2020-11-20 16:25] LABS: ALBUMIN 2.9 g/dL (3.4-5.0); ALKALINE PHOSPHATASE 73 U/L (30-120); ALT (SGPT) 22 U/L (10-68); BILIRUBIN - TOTAL 0.61 mg/dL (0.2-1.3); CALCIUM 10.2 mg/dL (8.5-10.1); CARBON DIOXIDE 24.2 mmol/L (21.0-32.0); CHLORIDE - SERUM 95 mmol/L (98-107); CREATINE KINASE 24 UL (21-215); CREATININE - SERUM 1.3 mg/dL (0.6-1.3); POTASSIUM - SERUM 3.8 mmol/L (3.5-5.1); PRO BNP 1100 pg/mL (0-125); PROTEIN - SERUM 7.4 g/dL (6.4-8.2); SODIUM 130 mmol/L (136-145); TROPONIN-I < 0.017 ng/mL (0.000-0.060); UREA NITROGEN 26 mg/dL (7-18); eGFR NON AFRICAN AMERICAN 44 mL/min (90-120)
[2020-11-20 16:27] LABS: CALC OSMOLALITY 294 mosm/kg (275-300); GLUCOSE 617 mg/dL (74-106)
[2020-11-20 16:50] LABS: LYMPHOCYTES 15 % (15-50); MONOCYTES 2 % (2-11); NEUTROPHILS 83 % (40-80); PLATELET ESTIMATE NORMAL
[2020-11-20 20:22] LABS: SARS-CoV-2 ANTIGEN NEGATIVE- SARS-COV-2 (NEGATIVE)
[2020-11-21] VITALS (8 sets, daily range): BP systolic 109–157; BP diastolic 62–96; BMI 33.8
--- NOTE | 2020-11-21 01:00 | NUR ---
RECEIVED REPORT AT THIS TIME, PT RESTING IN POSITION OF COMFORT IN HOSPITAL BED. 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 PT IS ON 3L NC, BREATHING EVEN AND NON LABORED. CALL LIGHT WITHIN REACH, BED LOW AND BELONGINGS WITHIN REACH.
--- NOTE | 2020-11-21 05:05 | NUR ---
PT AROUSES TO VERBAL STIMULI, DENIES CURRENT NEEDS. INFUSION OF IV MAXIPIME COMPLETE AT THIS TIME. IV FLUSHED, SWAB CAP IN PLACE. 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
[2020-11-21 05:50] LABS: ALBUMIN 2.6 g/dL (3.4-5.0); ALKALINE PHOSPHATASE 46 U/L (30-120); ALT (SGPT) 19 U/L (10-68); BILIRUBIN - TOTAL 0.47 mg/dL (0.2-1.3); CALCIUM 9.9 mg/dL (8.5-10.1); CARBON DIOXIDE 23.9 mmol/L (21.0-32.0); CHLORIDE - SERUM 101 mmol/L (98-107); POTASSIUM - SERUM 4.3 mmol/L (3.5-5.1); PROTEIN - SERUM 6.5 g/dL (6.4-8.2); SODIUM 136 mmol/L (136-145); TROPONIN-I < 0.017 ng/mL (0.000-0.060); UREA NITROGEN 28 mg/dL (7-18)
[2020-11-21 05:53] LABS: CALC OSMOLALITY 289 mosm/kg (275-300); CREATININE - SERUM 0.9 mg/dL (0.6-1.3); GLUCOSE 317 mg/dL (74-106); eGFR NON AFRICAN AMERICAN 68 mL/min (90-120)
[2020-11-21 05:59] LABS: HEMATOCRIT 35.8 % (36.0-48.0); HEMOGLOBIN 11.7 g/dL (12-16); MCH 28.8 pg (26.0-34.0); MCHC 32.7 g/dL (31.0-37.0); MEAN PLATELET VOLUME 10.5 fL (7.4-10.4); NEUTROPHIL ABS# 5.16 10x3/uL (1.56-6.13); PLATELET COUNT 136 10x3/uL (130-400); RBC 4.06 10x6/uL (4.00-5.40); RDW 14.8 % (11.5-14.5)
[2020-11-21 06:04] LABS: MCV 88.2 fL (80.0-100.0); WBC 7.1 10x3/uL (4.8-10.8)
--- NOTE | 2020-11-21 06:56 | NUR ---
INFUSION OF ORDERED DOXYCYCLINE IV COMPLETE. IV FLUSHED AT THIS TIME, SWAB CAP PLACED ON LINE. VSS. NO SIGNS OF ACUTE DISTRESS NOTED. 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
--- NOTE | 2020-11-21 07:10 | NUR ---
PT REPORT FROM JOSELO PEREIRA
--- NOTE | 2020-11-21 10:30 | NUR ---
RECEIVED REPORT FROM Dhara ALMARAZ RN.
--- NOTE | 2020-11-21 12:05 | NUR ---
FSBS 481. COVERED WITH 28 UNITS REGULAR INSULIN SQ.
[2020-11-21 12:20] LABS: ANISOCYTOSIS OCC; LYMPHOCYTES 9 % (15-50); MONOCYTES 12 % (2-11); NEUTROPHILS 74 % (40-80); PLATELET ESTIMATE NORMAL
--- NOTE | 2020-11-21 14:30 | NUR ---
C/O BACK PAIN FROM LYING IN BED. 8/10 ON PAIN SCALE. MEDICATED WITH OXYCODONE 10MG PO.
--- NOTE | 2020-11-21 15:30 | NUR ---
PAIN REASSESSED. STATES PAIN IS STILL AT 8/10. COUGHING UNCONTROLLABLY AT THIS TIME. MEDICATED WITH ROUTINE TESSALON KIRBY AND MUCINEX.
--- NOTE | 2020-11-21 16:30 | NUR ---
COUGHING EASED. FSBS COVERED WITH 16 UNITS REGULAR INSULIN. MEAL TRAY SERVED.
--- NOTE | 2020-11-21 17:30 | NUR ---
SCD'S APPLIED AND TEACHING DONE. INCENTIVE SPIROMETRY INSTRUCTED. PATIENT VERBALIZES EXPERIENCE IN THE PAST. INSTRUCTED 3 TIMES EVERY HOUR WHILE AWAKE. ORAL CARE SWABS PROVIDED AND INSTRUCTED FOR AFTER MEALS AND BEDTIME.
[2020-11-22 01:38] VITALS: BMI 33.9
--- NOTE | 2020-11-22 02:35 | NUR ---
I have reviewed this patient and I concur with the Shift Assessment completed by the Licensed Practical Nurse today this shift.
[2020-11-22 04:00] VITALS: BP 123/43
[2020-11-22 09:11] VITALS: BP 146/77
[2020-11-22 13:22] VITALS: BP 130/79
[2020-11-22 16:48] VITALS: BP 125/85
[2020-11-22 20:00] VITALS: BP 133/58
[2020-11-23] VITALS: BP 116/73
[2020-11-23 04:00] VITALS: BP 126/67
[2020-11-23 08:26] VITALS: BP 115/68
[2020-11-23 11:58] VITALS: BP 130/76
--- NOTE | 2020-11-23 13:39 | NUR ---
NUTRITION FOLLOW UP: COMMENTS: Met with patient. She stated she has not been feeling hungry due to chest pain and diffculty breathing lately. She stated she has not been experiencing any nausea, vomiting, diarrhea, constipation, or any new chewing/swallowing issues. Patient ate 100% of breakfast this am. DIET: Diabetic Diet (2400 kcal) PO INTAKE: 100% x 1 meal WEIGHT: 179 lbs on 11/20, 179 lbs on 11/22 BM: None recorded since admit SIG MEDS: Probiotic, Phenergan, Lovenox, Actos, Pepcid, Humulin SIG LABS: POC Glucose- 280, 451, 298, 410 RECOMMENDATIONS: 1) Continue DM diet as tolerated 2) Offer nutritional supplements if PO intake becomes </= 50% avg 3) Recommend Bowel Regimen if patient does not have BM in > [address] TO FOLLOW UP ON 11/27
[2020-11-23 16:00] VITALS: BP 148/86
[2020-11-23 20:09] VITALS: BP 134/73
[2020-11-24 00:52] VITALS: BP 130/77
[2020-11-24 05:14] VITALS: BP 132/77
[2020-11-24 08:30] VITALS: BP 140/79
[2020-11-24 09:11] LABS: ANION GAP 16.7 mmol/L (8-16); CALCIUM 8.8 mg/dL (8.5-10.1); CARBON DIOXIDE 20.5 mmol/L (21.0-32.0); CREATININE - SERUM 1.1 mg/dL (0.6-1.3); POTASSIUM - SERUM 4.2 mmol/L (3.5-5.1)
[2020-11-24 12:47] VITALS: BP 127/69
--- NOTE | 2020-11-24 15:34 | NUR ---
DENIES NEEDS.CALL LIGHT IN REACH
[2020-11-24 17:11] VITALS: BP 137/73
[2020-11-24 20:00] VITALS: BP 105/74
[2020-11-25] VITALS: BP 139/66
[2020-11-25 04:00] VITALS: BP 113/58
[2020-11-25 07:02] LABS: HEMATOCRIT 37.1 % (36.0-48.0); HEMOGLOBIN 12.1 g/dL (12-16); LYMPHOCYTE ABS# 0.53 10x3/uL (1.18-3.74); MCH 28.7 pg (26.0-34.0); MCHC 32.6 g/dL (31.0-37.0); MCV 88.1 fL (80.0-100.0); MEAN PLATELET VOLUME 10.8 fL (7.4-10.4); NEUTROPHIL ABS# 16.36 10x3/uL (1.56-6.13); RBC 4.21 10x6/uL (4.00-5.40); RDW 14.8 % (11.5-14.5); WBC 17.9 10x3/uL (4.8-10.8)
[2020-11-25 07:03] LABS: PLATELET COUNT 166 10x3/uL (130-400)
[2020-11-25 07:20] LABS: LYMPHOCYTES 3 % (15-50); NEUTROPHILS 96 % (40-80); PLATELET ESTIMATE NORMAL
[2020-11-25 07:50] LABS: ANION GAP 13.8 mmol/L (8-16); CALCIUM 9.5 mg/dL (8.5-10.1); CREATININE - SERUM 1.1 mg/dL (0.6-1.3)
[2020-11-25 07:51] LABS: CARBON DIOXIDE 26.2 mmol/L (21.0-32.0)
[2020-11-25 08:09] VITALS: BP 133/78
[2020-11-25 13:58] VITALS: BP 131/71
[2020-11-25 17:02] VITALS: BP 131/73
[2020-11-25 20:00] VITALS: BP 113/85
[2020-11-26] VITALS: BP 123/85
[2020-11-26 04:00] VITALS: BP 118/73
[2020-11-26 09:12] VITALS: BP 116/86
[2020-11-26 09:47] LABS: CREATININE - SERUM 1.1 mg/dL (0.6-1.3)
[2020-11-26 09:48] LABS: VANCOMYCIN - TROUGH 24.1 ug/mL (10.0-20.0)
[2020-11-26 12:36] VITALS: BP 128/71
[2020-11-26 17:13] VITALS: BP 156/90
--- NOTE | 2020-11-26 19:00 | NUR ---
BEDSIDE REPORT RECEIVED AND CARE OF PT ASSUMED. PT LYING IN HIGH SUNG'S POSITION WATCHING TV. IV TO LEFT FA PATENT WITH NS INFUSING AT 20 ML/HR. O2 IL USE VIA NC AT 2L. WILL MONITOR FOR NEEDS.
--- NOTE | 2020-11-26 20:13 | NUR ---
HS MEDICATIONS GIVEN TO INCLUDE PHENERGAN COUCH SYRUP W/ CODEINE. WILL CONTINUE TO MONITOR RADHA.
[2020-11-26 21:32] VITALS: BP 138/71
--- NOTE | 2020-11-26 21:50 | NUR ---
PT C/O PAIN IN LEFT SIDE WITH COUGHING. GAVE OXY IR PER PRN ORDER. WILL CONTINUE TO MONITOR FOR NEEDS.
[2020-11-27 00:23] VITALS: BP 119/77
[2020-11-27 04:23] VITALS: BP 128/75
[2020-11-27 08:02] LABS: VANCOMYCIN - TROUGH 13.4 ug/mL (10.0-20.0)
[2020-11-27 08:32] VITALS: BP 107/87
[2020-11-27 09:34] LABS: ANION GAP 14.3 mmol/L (8-16); CALCIUM 9.2 mg/dL (8.5-10.1); CARBON DIOXIDE 22.5 mmol/L (21.0-32.0); CREATININE - SERUM 1.1 mg/dL (0.6-1.3); POTASSIUM - SERUM 3.8 mmol/L (3.5-5.1)
[2020-11-27 10:16] LABS: BASOPHILS 0.2 % (0-2); EOSINOPHILS 0 % (0-7); HEMOGLOBIN 12.7 g/dL (12-16); IMMATURE GRANULOCYTES 2.2 % (0-5); LYMPHOCYTE ABS# 0.48 10x3/uL (1.18-3.74); LYMPHOCYTES 2.8 % (15-50); MCH 29.1 pg (26.0-34.0); MCHC 32.6 g/dL (31.0-37.0); MCV 89.4 fL (80.0-100.0); MEAN PLATELET VOLUME 11.1 fL (7.4-10.4); MONOCYTES 4.3 % (2-11); NEUTROPHIL ABS# 15.77 10x3/uL (1.56-6.13); NEUTROPHILS 90.5 % (40-80); PLATELET COUNT 168 10x3/uL (130-400); RBC 4.36 10x6/uL (4.00-5.40); RDW 15.5 % (11.5-14.5); WBC 17.4 10x3/uL (4.8-10.8)
--- NOTE | 2020-11-27 12:23 | NUR ---
FSBS 489. DR. HENRY ORDERS 28 UNITS IN ADDITION TO 20 OF HUMULIN. ORDERS TO START LANTUS NOW, THEN RESUME AT 2100 TIME TOMORROW.
[2020-11-27 12:46] VITALS: BP 147/72
--- NOTE | 2020-11-27 13:19 | NUR ---
Nutrition follow-up: Diet: Consistent CHO PO intake 100% of meals Labs reviewed; glucose elevated and Lantus started along with SS Wt: 179# +BM Will continue to provide food choices with selective menus and honor food preferences within diet restrictions. Follow-up: 12/03/20
[2020-11-27 17:05] VITALS: BP 143/91
[2020-11-27 20:00] VITALS: BP 135/85
[2020-11-28] VITALS: BP 118/86
--- NOTE | 2020-11-28 03:40 | NUR ---
ASSESSED AT THE BEGINNING OF THE SHIFT. PT WAS REQUESTING PAIN MEDS AT THAT TIME. SHE IS ALERT AND ORIENTED AND CLLS FREQUENTLY FOR THINGS. HER O2 IS SET AT 5 LITERS AND DURING THE NIGHT WE HAVE WORKED WITH HER TO BREATH THROUGHT HER NOSE BECAUSE HER O2 WITH DROP TO 88. RESP TECH HAS BEEN ADVISED OF HER LOWER O2 SAT. WE ARE TAKING HER BLOOD SUGARS AND AT HS IT WAS DOWN TO 215, WHICH IS BETTER. SCD'S ARE OFF PER PT REQUEST.
[2020-11-28 04:00] VITALS: BP 152/96
--- NOTE | 2020-11-28 07:05 | NUR ---
Pt awake and alert, laying in bed, no signs of distress
--- NOTE | 2020-11-28 08:25 | NUR ---
RESPIRATORY NOTIFIED THIS RN OF PT PaO2 OF 48, INCREASED O2 TO 10L VIA NASAL CANNULA, STATED SHE WOULD NOTIFIED PROVIDER
[2020-11-28 08:34] VITALS: BP 143/81
--- NOTE | 2020-11-28 09:50 | NUR ---
PT UP TO THE BATHROOM, AMBULATED INDEPENDENTLY BACK TO BED, PT GOT VERY SOB, PT BECAME ANXIOUS, ENCOURAGED TO SLOW HER BREATHING AND TAKE DEEP SLOW BREATHS THROUGH HER NOSE, PT WAS ABLE TO CALM DOWN AND REGAIN NORMAL RESPIRATIONS
[2020-11-28 12:57] VITALS: BP 146/76
--- NOTE | 2020-11-28 13:22 | NUR ---
PLACE ON 100% VAPOTHERM AT 40LM
--- NOTE | 2020-11-28 13:42 | NUR ---
PT SITTING UP IN BED, RESPIRATORY PLACED PT ON VAPOTHERM AT 40L/100% O2, PT IS TOLERATING WELL, INCREASED COUGHING
[2020-11-28 16:38] VITALS: BP 143/92
--- NOTE | 2020-11-28 17:00 | NUR ---
PT SITTING UP IN BED WATCHING SHOW ON PHONE, MEDS GIVEN, 12 UNITS HUMALOG GIVEN FOR BG OF 241
[2020-11-28 20:00] VITALS: BP 138/82
[2020-11-29] VITALS: BP 146/71
--- NOTE | 2020-11-29 00:52 | NUR ---
PT WAS LYING IN BED UPON ASSESSMENT. COMPLAINED OF BACK PAIN AND ASKED FOR PAIN MEDS. RATED PAIN A 10. PT WAS ADMINISTERED HER SCHEDULED MUSCLE RELAXER AND PRN PAIN MEDICATION. PT WAS CHECKED OUT ABOUT 30 MINS LATER AFTER MEDICATION AND WAS SLEEPING, BUT EASY TO AROUSE.
[2020-11-29 04:00] VITALS: BP 148/89
--- NOTE | 2020-11-29 05:03 | NUR ---
PT IS IN BED, USING HER PHONE AT THIS TIME. PT COMPLAINED OF BACK PAIN THROUGHOUT THE NIGHT. PRN MEDICATION WAS GIVEN. VAPOTHERM IS NOW AT 30L. STILL HAS A COUGH. EDUCATED ON TURN, COUGH AND DEEP BREATH. CALL RICE IN REACH. BED IN LOWEST IN BED.
[2020-11-29 06:27] LABS: ALKALINE PHOSPHATASE 63 U/L (30-120); ALT (SGPT) 27 U/L (10-68); CALCIUM 9.1 mg/dL (8.5-10.1); CHLORIDE - SERUM 101 mmol/L (98-107); CREATININE - SERUM 0.8 mg/dL (0.6-1.3); POTASSIUM - SERUM 3.4 mmol/L (3.5-5.1); PROTEIN - SERUM 5.2 g/dL (6.4-8.2); SODIUM 135 mmol/L (136-145); UREA NITROGEN 28 mg/dL (7-18); eGFR NON AFRICAN AMERICAN 78 mL/min (90-120)
[2020-11-29 06:28] LABS: CALC OSMOLALITY 283 mosm/kg (275-300); CARBON DIOXIDE 29.2 mmol/L (21.0-32.0); GLUCOSE 236 mg/dL (74-106)
[2020-11-29 06:44] LABS: BASOPHILS 0.2 % (0-2); EOSINOPHILS 0.3 % (0-7); HEMATOCRIT 33.1 % (36.0-48.0); HEMOGLOBIN 10.6 g/dL (12-16); IMMATURE GRANULOCYTES 1.9 % (0-5); LYMPHOCYTE ABS# 0.31 10x3/uL (1.18-3.74); LYMPHOCYTES 5.4 % (15-50); MCH 28.6 pg (26.0-34.0); MCV 89.2 fL (80.0-100.0); MEAN PLATELET VOLUME 10.2 fL (7.4-10.4); NEUTROPHILS 88.2 % (40-80); RBC 3.71 10x6/uL (4.00-5.40); RDW 15.4 % (11.5-14.5)
[2020-11-29 06:48] LABS: PLATELET COUNT 92 10x3/uL (130-400); WBC 5.8 10x3/uL (4.8-10.8)
--- NOTE | 2020-11-29 07:48 | NUR ---
Pt sitting up in bed, complaint of headache and lower back pain, states that her left lung hurts, pt still having difficulty breathing, pt is very down and states she is tired
[2020-11-29 08:22] LABS: PLATELET ESTIMATE DECREASED
[2020-11-29 08:24] LABS: ROULEAUX OCC
--- NOTE | 2020-11-29 09:11 | NUR ---
Pt sitting up in bed eating breakfast, ambulated to bathroom and back to bed, pt became very short of breath, vapotherm put back on, pt was able to calm and breath better, meds given, pt request pain medication
[2020-11-29 09:33] VITALS: BP 135/70
--- NOTE | 2020-11-29 11:44 | NUR ---
CRITICAL: BG 479, 28 UNITS OF HUMALOG GIVEN, DR NOTIFIED. NS running at 10mL per hour, zyvox started, pt on phone with family
[2020-11-29 13:00] VITALS: BP 122/70
--- NOTE | 2020-11-29 13:34 | MORECARE ---
CASE MANAGEMENT DISCHARGE SUMMARY PATIENT: LAZARUS HECTOR UNIT: [id number] ADM DATE: 11/20/20 AGE: 59 : 62 SEX: F ROOM/BED: D.2239 AUTHOR: CHAD BROWN PHYSICIAN: REFERRING PHYSICIAN: EVITA SLATER MD DATE OF SERVICE: 11/29/20 Discharge Plan Patient Name: LAZARUS HECTOR Facility: [facility]:[place] : 1960 Planned Disposition: Anticipated Discharge Date: Discharge Date: Expected LOS: Initial Reviewer: [email or web address] Initial Review Date: 11/20/2020 Generated: 11/29/20 2:33 pm Comments DCP- Discharge Planning Updated by [email or web address]: Marcy Rogel on 11/29/20 12:[address] Patient Name: LAZARUS HECTOR Admission Status: ER Accout number: [id number] Admission Date: 11-20-2020 : 1960 Admission Diagnosis:PNEUMONIA, UNSPECIFIED ORGANISM Attending: EVITA SLATER Current LOS: 9 Anticipated DC Date: Planned Disposition: Primary Insurance: [employer] MANAGED MEDICAID Discharge Planning Comments: ATTEPTED TO CALL PATIENT IN HER ROOM. NO ANSWER, THIS MAY BE DO TO HER NOW BEING ON VAPOTHERM. I WILL TRY CONTING HER AT A LATER TIME TO DO DISCHARGE PLANNING. CM TO FOLLOW AND ASSIST NEEDED. Career Technical Supervisor: Marcy Pebbles Patient Name: LAZARUS HECTOR Page [phone] at 1334 All edits/amendments must be made on the electronic document DICTATION DATE: 11/29/20 1334 ASSOCIATE DESIGNER: ELISEO 11/29/20 1334 RPT#: [id number] DC DATE: STATUS: ADM IN [facility] [address] [place] [address] END OF REPORT
--- NOTE | 2020-11-29 15:07 | NUR ---
1400-- SPO2- 95% ON 70% DECREASE TO 60%
--- NOTE | 2020-11-29 15:09 | NUR ---
1040--SPO2-97% ON 80% DECREASE TO 70%
--- NOTE | 2020-11-29 16:03 | NUR ---
PT COMPLAINS OF PAIN AND STATES IT IS FROM COUGHING SO MUCH, PT REQUEST SOMETHING TO HELP THE COUGH, PT REQUEST MET
[2020-11-29 16:59] VITALS: BP 134/75
[2020-11-29 22:02] VITALS: BP 143/73
--- NOTE | 2020-11-30 01:15 | NUR ---
PT IN ROOM WITH HER SON. SEEMED TO BE IN A BETTER MOOD WITH FAMILY MEMBER VISITING. PT COMPLAINED OF BACK PAIN AND PAIN MEDICATION WAS ADMINISTERED. REASSESSED AND PT WAS RESTING WITH NO OTHER COMPLAINTS OF PAIN. SOB STILL NOTED. BED IN LOW POSITION WITH CALL RICE LIGHT WITHIN REACH.
[2020-11-30 03:14] VITALS: BP 109/82
[2020-11-30 05:15] VITALS: BP 121/64; BP 129/65
[2020-11-30 06:42] LABS: BASOPHILS 0.1 % (0-2); EOSINOPHILS 0 % (0-7); HEMATOCRIT 36.2 % (36.0-48.0); HEMOGLOBIN 11.6 g/dL (12-16); IMMATURE GRANULOCYTES 1.3 % (0-5); LYMPHOCYTE ABS# 0.36 10x3/uL (1.18-3.74); LYMPHOCYTES 4.8 % (15-50); MCH 28.9 pg (26.0-34.0); MEAN PLATELET VOLUME 11.2 fL (7.4-10.4); NEUTROPHIL ABS# 6.61 10x3/uL (1.56-6.13); NEUTROPHILS 87.8 % (40-80); PLATELET COUNT 108 10x3/uL (130-400); RBC 4.02 10x6/uL (4.00-5.40); RDW 15.3 % (11.5-14.5); WBC 7.5 10x3/uL (4.8-10.8)
[2020-11-30 06:52] LABS: ANION GAP 7.2 mmol/L (8-16); CALCIUM 9.4 mg/dL (8.5-10.1); CARBON DIOXIDE 30.8 mmol/L (21.0-32.0); CREATININE - SERUM 0.9 mg/dL (0.6-1.3)
--- NOTE | 2020-11-30 07:10 | NUR ---
PT AWAKE AND ALERT, SITTING UP IN BED ON CELLPHONE
[2020-11-30 10:10] VITALS: BP 120/72
[2020-11-30 14:08] VITALS: BP 123/85
[2020-11-30 20:20] VITALS: BP 110/71
[2020-12-01 01:19] VITALS: BP 112/84
[2020-12-01 05:58] VITALS: BP 160/81
[2020-12-01 06:10] LABS: IMMUNOGLOBULIN A 117 mg/dL (87-352); IMMUNOGLOBULIN G 428 mg/dL (586-1602)
[2020-12-01 09:35] VITALS: BP 120/67
--- NOTE | 2020-12-01 10:25 | NUR ---
AAOX4 UPON ENTERING. BREATHING TX IN PROGRESS. ADMINISTERD MEDICATIONS, NO DIFFICULTIES AND TOLERATED WELL. RESTING COMFORTABLY IN BED. DENIES ANY NEEDS AT THIS TIME. BED IN LOWEST POSITION, BED RAILS X2, CALL LIGHT WITHIN REACH. WILL CONTINUE POC.
--- NOTE | 2020-12-01 13:00 | NUR ---
ADMINISTERED MEDICATION, NO DIFFICULTIES. 16 UNTS INSULIN PER SLIDING SCALE. RESTING VOMFORTABLY IN BED. DENIES ANY NEEDS AT THIS TIME. WILL CONTINUE POC.
[2020-12-01 13:25] VITALS: BP 124/73
--- NOTE | 2020-12-01 15:38 | NUR ---
I have reviewed this patient and I concur with the Shift Assessment completed by the Licensed Practical Nurse today this shift.
--- NOTE | 2020-12-01 17:23 | NUR ---
ADMINISTERED MEDICATION, NO DIFFICULTIES. 16 UNITS INSULIN PER SLIDING SCALE FOR SUGAR OF 276. UPRIGHT IN BED, EATING DINNER. REQUESTING COFFEE, WILL PROVIDE. DENIES ANY OTHER NEEDS AT THIS TIME. WILL CONTINUE POC.
[2020-12-01 18:22] VITALS: BP 149/85
[2020-12-01 19:54] VITALS: BP 143/77
[2020-12-02 01:47] VITALS: BP 148/73
[2020-12-02 05:52] VITALS: BP 145/71
--- NOTE | 2020-12-02 09:45 | NUR ---
AAOX4 UPON ENTERY. ADMINISTERED MORNING MEDICATION, NO DIFFICULTIES. UPRIGHT IN BED. DENIES ANY NEEDS AT THIS TIME. WILL CONTINUE POC.
[2020-12-02 11:25] VITALS: BP 107/69
--- NOTE | 2020-12-02 11:57 | NUR ---
16 UNITS INSULIN PER SLIDING SCALE FOR SUGAR OF 293. HUNG ABX, TOLERATING WELL. RESTING IN BED. DENIES ANY NEEDS AT THIS TIME. WILL CONTINUE POC.
--- NOTE | 2020-12-02 16:10 | NUR ---
AAOX4 UPON ENTERING. ADMINISTERED MEDICATION, NO DIFFICULTIES. 12 UNITS INSULIN PER SLIDING SCALE. RESTING COMFORTABLY UPRIGHT IN BED. DENIES ANY NEEDS AT THIS TIME. WILL CONTINUE POC.
--- NOTE | 2020-12-02 18:05 | NUR ---
I have reviewed this patient and I concur with the Shift Assessment completed by the Licensed Practical Nurse today this shift.
[2020-12-02 18:13] VITALS: BP 130/68
[2020-12-02 20:23] VITALS: BP 141/77
[2020-12-03 01:19] VITALS: BP 108/76
[2020-12-03 05:36] LABS: BASOPHILS 0.2 % (0-2); EOSINOPHILS 0 % (0-7); HEMATOCRIT 35.7 % (36.0-48.0); HEMOGLOBIN 11.3 g/dL (12-16); IMMATURE GRANULOCYTES 0.7 % (0-5); LYMPHOCYTE ABS# 0.23 10x3/uL (1.18-3.74); MCH 28.6 pg (26.0-34.0); MCHC 31.7 g/dL (31.0-37.0); MCV 90.4 fL (80.0-100.0); MEAN PLATELET VOLUME 10.7 fL (7.4-10.4); MONOCYTES 2.5 % (2-11); NEUTROPHIL ABS# 5.29 10x3/uL (1.56-6.13); NEUTROPHILS 92.6 % (40-80); RBC 3.95 10x6/uL (4.00-5.40); RDW 14.9 % (11.5-14.5); WBC 5.7 10x3/uL (4.8-10.8)
[2020-12-03 05:45] LABS: ANION GAP 10.6 mmol/L (8-16); CALCIUM 8.5 mg/dL (8.5-10.1); POTASSIUM - SERUM 3.6 mmol/L (3.5-5.1)
[2020-12-03 05:52] LABS: PLATELET COUNT 75 10x3/uL (130-400)
[2020-12-03 06:44] VITALS: BP 118/69
[2020-12-03 09:10] VITALS: BP 135/76
[2020-12-03 12:56] VITALS: BP 159/84
[2020-12-03 16:09] LABS: IGG SUBCLASS 1 245 mg/dL (248-810); IGG SUBCLASS 2 89 mg/dL (130-555); IGG SUBCLASS 3 26 mg/dL (15-102); IGG SUBCLASS 4 1 mg/dL (2-96); IGGS - IGG SERUM 422 mg/dL (586-1602)
[2020-12-03 17:16] VITALS: BP 108/76
[2020-12-03 20:00] VITALS: BP 123/81
[2020-12-04] VITALS: BP 108/75
[2020-12-04 04:00] VITALS: BP 117/51
[2020-12-04 06:07] LABS: ANION GAP 9.3 mmol/L (8-16); CALCIUM 8.6 mg/dL (8.5-10.1); CARBON DIOXIDE 31.1 mmol/L (21.0-32.0); CREATININE - SERUM 1.2 mg/dL (0.6-1.3); POTASSIUM - SERUM 3.4 mmol/L (3.5-5.1)
[2020-12-04 06:33] LABS: BASOPHILS 0.2 % (0-2); EOSINOPHILS 0 % (0-7); HEMATOCRIT 34.2 % (36.0-48.0); HEMOGLOBIN 10.6 g/dL (12-16); IMMATURE GRANULOCYTES 0.9 % (0-5); LYMPHOCYTE ABS# 0.21 10x3/uL (1.18-3.74); LYMPHOCYTES 3.8 % (15-50); MCH 28.1 pg (26.0-34.0); MCV 90.7 fL (80.0-100.0); MEAN PLATELET VOLUME 10.8 fL (7.4-10.4); MONOCYTES 1.6 % (2-11); NEUTROPHIL ABS# 5.15 10x3/uL (1.56-6.13); NEUTROPHILS 93.5 % (40-80); RBC 3.77 10x6/uL (4.00-5.40); RDW 14.9 % (11.5-14.5); WBC 5.5 10x3/uL (4.8-10.8)
[2020-12-04 06:35] LABS: PLATELET COUNT 49 10x3/uL (130-400)
[2020-12-04 08:48] VITALS: BP 116/65
--- NOTE | 2020-12-04 10:49 | NUR ---
1030--- SPO2 95% DECREASE TO 45% FIO2
[2020-12-04 12:33] LABS: PLATELET ESTIMATE DECREASED
[2020-12-04 12:35] LABS: ANISOCYTOSIS OCC; HYPOCHROMASIA OCC; PLATELET MORPHOLOGY PLT CLUMPS PRESENT
[2020-12-04 13:14] VITALS: BP 143/90
--- NOTE | 2020-12-04 14:03 | NUR ---
1400--SPO2 97% DECREASE TO 40%
--- NOTE | 2020-12-04 15:15 | NUR ---
Nutrition Re-assessment Diet: Diabetic 2400cal PO intake: 75-100% x last 6 meals Last BM: 12/03/20. Wt: 179# (11/22/20); Admit Wt: 179# (11/20/20) Meds noted: solumedrol, lantus, lasix, probiotics, actos, SSI Labs noted: K 3.4(L), BUN 34(H), GFR 49(L), Glu 226(H) Nutrition needs: 1400-1675cal (25-30 Adj), 65-80gms PRO (0.8-1 gms/kg), 1400-1675mL fluid (or per MD) *Adjusted body weight = 56.1kg Nutrition diagnosis: Altered nutrition related lab values r/t T2DM AEB elevated blood glucose. Recommend: -Continue Diabetic diet -Will continue to honor food preferences within diet restrictions. -RD will follow-up within 7 days
[2020-12-04 18:05] VITALS: BP 155/83
--- NOTE | 2020-12-04 19:30 | NUR ---
PT SITTING UP IN BED WITHOUT DISTRESS, AOX4. DENIES NEEDS AT THIS TIME. CL IN REACH
[2020-12-04 20:00] VITALS: BP 146/86
[2020-12-05] VITALS: BP 124/72
[2020-12-05 04:00] VITALS: BP 136/82
--- NOTE | 2020-12-05 06:20 | NUR ---
PT AMBULATED TO BATHROOM WELL BUT WAS SOB WHILE SITTING ON TOILET. NOTICIED AT THIS TIME IV TO RIGHT HAND WAS LEAKING AND CATHETER WAS OUT PARTIALLY AND BENT. REMOVED WITH CATH INTACT. ASSISTED PT IN CHANGING BRIEF. THIS NURSE AND NURSES AID WERE ON EACH SIDE OF PT TO ASSIST BACK TO BED. PT STOOD UP AND WE ASSISTED PULLING BRIEF UP AND PT TOOK TWO STEPS AND SAID "OH NO" AND HER KNEES GAVE OUT FROM UNDER HER. THIS NURSE AND NURSES AID HELD PT UP AND SLOWLY ASSISTED HER TO HER KNEES. CALLED FOR HELP. OTHER NURSES CAME AND ASSISTED GETTING PT BACK ON HER FEET AND BACK IN BED. INFORMED PT WE WOULD USE THE BEDPAN UNTIL GETTING A BEDSIDE COMMODE
[2020-12-05 09:07] VITALS: BP 143/85
[2020-12-05 13:09] VITALS: BP 137/86
--- NOTE | 2020-12-05 13:49 | MORECARE ---
CASE MANAGEMENT DISCHARGE SUMMARY PATIENT: LAZARUS HECTOR UNIT: [id number] ADM DATE: 11/20/20 AGE: 59 : 62 SEX: F ROOM/BED: D.2239 AUTHOR: CHAD BROWN PHYSICIAN: REFERRING PHYSICIAN: EVITA SLATER MD DATE OF SERVICE: 12/05/20 Discharge Plan Patient Name: LAZARUS HECTOR Facility: [facility]:[place] : 1960 Planned Disposition: Anticipated Discharge Date: Discharge Date: Expected LOS: Initial Reviewer: [email or web address] Initial Review Date: 11/20/2020 Generated: 12/05/20 2:48 pm DCP- Discharge Planning Updated by [email or web address]: Marcy Rogel on 11/29/20 12:[address] Patient Name: LAZARUS HECTOR Admission Status: ER Accout number: [id number] Admission Date: 11-20-2020 : 1960 Admission Diagnosis:PNEUMONIA, UNSPECIFIED ORGANISM Attending: EVITA SLATER Current LOS: 9 Anticipated DC Date: Planned Disposition: Primary Insurance: [employer] MANAGED MEDICAID Discharge Planning Comments: ATTEPTED TO CALL PATIENT IN HER ROOM. NO ANSWER, THIS MAY BE DO TO HER NOW BEING ON VAPOTHERM. I WILL TRY CONTING HER AT A LATER TIME TO DO DISCHARGE PLANNING. CM TO FOLLOW AND ASSIST NEEDED. Store Gift Wrap Associate: Marcy Rogel Last DP export: 11/29/20 12:34 p Patient Name: LAZARUS HECTOR Page [phone] at 1349 All edits/amendments must be made on the electronic document DICTATION DATE: 12/05/20 1348 BRAND MARKETING INTERN: ELISEO 12/05/20 1348 RPT#: [id number] DC DATE: STATUS: ADM IN [facility] [address] [place] [address] END OF REPORT
--- NOTE | 2020-12-05 14:03 | MORECARE ---
CASE MANAGEMENT DISCHARGE SUMMARY PATIENT: LAZARUS HECTOR UNIT: [id number] ADM DATE: 11/20/20 AGE: 59 : 62 SEX: F ROOM/BED: D.2239 AUTHOR: CHAD BROWN PHYSICIAN: REFERRING PHYSICIAN: EVITA SLATER MD DATE OF SERVICE: 12/05/20 Discharge Plan Patient Name: LAZARUS HECTOR Facility: [facility]:[place] : 1960 Planned Disposition: Anticipated Discharge Date: Discharge Date: Expected LOS: Initial Reviewer: [email or web address] Initial Review Date: 11/20/2020 Generated: 12/05/20 3:02 pm DCP- Discharge Planning Updated by [email or web address]: Marcy Pebbles on 11/29/20 12:[address] Patient Name: LAZARUS HECTOR Admission Status: ER Accout number: [id number] Admission Date: 11-20-2020 : 1960 Admission Diagnosis:PNEUMONIA, UNSPECIFIED ORGANISM Attending: EVITA SLATER Current LOS: 9 Anticipated DC Date: Planned Disposition: Primary Insurance: [employer] MANAGED MEDICAID Discharge Planning Comments: ATTEPTED TO CALL PATIENT IN HER ROOM. NO ANSWER, THIS MAY BE DO TO HER NOW BEING ON VAPOTHERM. I WILL TRY CONTING HER AT A LATER TIME TO DO DISCHARGE PLANNING. CM TO FOLLOW AND ASSIST NEEDED. Test Inspection Engineer: Marcy Rogel DCPIA - Discharge Planning Initial Assessment Updated by [email or web address]: Marcy Rogel on 12/05/20 1:56 pm * PCP NOHEMY * [facility] * Preadmission Environment Home with Family * ADLs Independent * Other Equipment WALKER * List name and contact numbers for known caregivers / representatives who currently or will assist patient after discharge: SUNDAY, , * Additional services required to return to the preadmission environment? Yes * Has this patient been hospitalized within the prior 30 days at any hospital? Yes Last DP export: 12/05/20 12:48 p Patient Name: LAZARUS HECTOR Page [phone] at 1403 All edits/amendments must be made on the electronic document DICTATION DATE: 12/05/201401 BRILLIANDEER LOOPER: ELISEO 12/05/201401 RPT#: [id number] DC DATE: STATUS: ADM IN [facility] [address] [place] [address] END OF REPORT
--- NOTE | 2020-12-05 14:19 | MORECARE ---
CASE MANAGEMENT DISCHARGE SUMMARY PATIENT: LAZARUS HECTOR UNIT: [id number] ADM DATE: 11/20/20 AGE: 59 : 62 SEX: F ROOM/BED: D.2239 AUTHOR: KEVIN,DOC PHYSICIAN: REFERRING PHYSICIAN: EVITA SLATER MD DATE OF SERVICE: 12/05/20 Discharge Plan Patient Name: LAZARUS HECTOR Facility: [facility]:[place] : 1960 Planned Disposition: Anticipated Discharge Date: Discharge Date: Expected LOS: Initial Reviewer: [email or web address] Initial Review Date: 11/20/2020 Generated: 12/05/20 3:18 pm Comments DCP- Discharge Planning Updated by [id number]: Marcy Pebbles on 12/05/20 1:[address] Patient Name: LAZARUS HECTOR Admission Status: ER Accout number: [id number] Admission Date: 11-20-2020 : 1960 Admission Diagnosis:PNEUMONIA, UNSPECIFIED ORGANISM Attending: EVITA SLATER Current LOS: 15 Anticipated DC Date: Planned Disposition: Primary Insurance: [employer] MANAGED MEDICAID Discharge Planning Comments: ATTEMPTED TO CONTACT PATIENT MULTIPLE TIMES FROM HER ROOM AND NO ANSWER. SHE IS ON ISOLATION AIRBORN. MOST INFORMATION WAS OBTAINED FROM THE CHART. PATIENT CURRENTLY ON VAPOTHERM. DEPENDING ON HOW SHE PROGRESSES I ANTICIPATE REHAB VS HOME WITH HOME HEALTH. SHE MAY NEED HOME OXYGEN ALSO. CM TO FOLLOW AND ASSIST NEEDED. Professional Athletes Coach: Marcy Rogel DCP- Discharge Planning Updated by [id number]: Marcy Rogel on 11/29/20 12:[address] Patient Name: LAZARUS HECTOR Admission Status: ER Accout number: [id number] Admission Date: 11-20-2020 : 1960 Admission Diagnosis:PNEUMONIA, UNSPECIFIED ORGANISM Attending: EVITA SLATER Current LOS: 9 Anticipated DC Date: Planned Disposition: Primary Insurance: [employer] MANAGED MEDICAID Discharge Planning Comments: ATTEPTED TO CALL PATIENT IN HER ROOM. NO ANSWER, THIS MAY BE DO TO HER NOW BEING ON VAPOTHERM. I WILL TRY CONTING HER AT A LATER TIME TO DO DISCHARGE PLANNING. CM TO FOLLOW AND ASSIST NEEDED. Professional Athletes Coach: Marcy Rogel DCPIA - Discharge Planning Initial Assessment Updated by [email or web address]: Marcy Rogel on 12/05/20 1:56 pm * PCP NOHEMY * Pharmacy [facility] * Preadmission Environment Home with Family * ADLs Independent * Other Equipment WALKER * List name and contact numbers for known caregivers / representatives who currently or will assist patient after discharge: TREVIN BRAND, * Additional services required to return to the preadmission environment? Yes * Has this patient been hospitalized within the prior 30 days at any hospital? Yes Last DP export: 12/05/20 1:03 p Patient Name: LAZARUS HECTOR Page [phone] at 1419 All edits/amendments must be made on the electronic document DICTATION DATE: 12/05/201417 FOLDER MACHINE: ELISEO 12/05/201417 RPT#: [id number] DC DATE: STATUS: ADM IN [facility] [address] [place] [address] END OF REPORT
--- NOTE | 2020-12-05 14:35 | MORECARE ---
CASE MANAGEMENT DISCHARGE SUMMARY PATIENT: LAZARUS HECTOR UNIT: [id number] ADM DATE: 11/20/20 AGE: 59 : 62 SEX: F ROOM/BED: D.2239 AUTHOR: KEVIN,DOC PHYSICIAN: REFERRING PHYSICIAN: EVITA SLATER MD DATE OF SERVICE: 12/05/20 Discharge Plan Patient Name: LAZARUS HECTOR Facility: [facility]:[place] : 1960 Planned Disposition: Anticipated Discharge Date: Discharge Date: Expected LOS: Initial Reviewer: [email or web address] Initial Review Date: 11/20/2020 Generated: 12/05/20 3:35 pm Comments DCP- Discharge Planning Updated by [email or web address]: Marcy Pebbles on 12/05/20 1:[address] Patient Name: LAZARUS HECTOR Admission Status: ER Accout number: [id number] Admission Date: 11-20-2020 : 1960 Admission Diagnosis:PNEUMONIA, UNSPECIFIED ORGANISM Attending: EVITA SLATER Current LOS: 15 Anticipated DC Date: Planned Disposition: Primary Insurance: [employer] MANAGED MEDICAID Discharge Planning Comments: ATTEMPTED TO CONTACT PATIENT MULTIPLE TIMES FROM HER ROOM AND NO ANSWER. SHE IS ON ISOLATION AIRBORN. MOST INFORMATION WAS OBTAINED FROM THE CHART. PATIENT CURRENTLY ON VAPOTHERM. DEPENDING ON HOW SHE PROGRESSES I ANTICIPATE REHAB VS HOME WITH HOME HEALTH. SHE MAY NEED HOME OXYGEN ALSO. CM TO FOLLOW AND ASSIST NEEDED. Environmental Services Specialist: Marcy Rogel DCP- Discharge Planning Updated by [id number]: Marcy Rogel on 11/29/20 12:[address] Patient Name: LAZARUS HECTOR Admission Status: ER Accout number: [id number] Admission Date: 11-20-2020 : 1960 Admission Diagnosis:PNEUMONIA, UNSPECIFIED ORGANISM Attending: EVITA SLATER Current LOS: 9 Anticipated DC Date: Planned Disposition: Primary Insurance: [employer] MANAGED MEDICAID Discharge Planning Comments: ATTEPTED TO CALL PATIENT IN HER ROOM. NO ANSWER, THIS MAY BE DO TO HER NOW BEING ON VAPOTHERM. I WILL TRY CONTING HER AT A LATER TIME TO DO DISCHARGE PLANNING. CM TO FOLLOW AND ASSIST NEEDED. Environmental Services Specialist: Marcy Rogel DCPIA - Discharge Planning Initial Assessment Updated by [email or web address]: Marcy Rogel on 12/05/20 1:56 pm * PCP NOHEMY * Pharmacy [facility] * Preadmission Environment Home with Family * ADLs Independent * Other Equipment WALKER * List name and contact numbers for known caregivers / representatives who currently or will assist patient after discharge: TREVIN BRAND, * Additional services required to return to the preadmission environment? Yes * Has this patient been hospitalized within the prior 30 days at any hospital? Yes Last DP export: 12/05/20 1:19 p Patient Name: LAZARUS HECTOR Page [phone] at 1435 All edits/amendments must be made on the electronic document DICTATION DATE: 12/05/201434 CLOCKMAKER APPRENTICE: ELISEO 12/05/20 143 RPT#: [id number] DC DATE: STATUS: ADM IN [facility] [address] [place] [address] END OF REPORT
[2020-12-05 17:22] VITALS: BP 153/91
[2020-12-05 19:08] LABS: IMMUNOGLOBULIN E 3 IU/mL (6-495)
[2020-12-05 20:00] VITALS: BP 110/64
--- NOTE | 2020-12-05 22:45 | NUR ---
DAY NURSE STATED PT HAS BEEN GETTING UP TO BEDSIDE COMMODE WITHOUT DIFFICULTY ALL DAY AND REFUSED TO USE THE BED MARTINO. PT CALL LIGHT CAME ON WHILE THIS NURSE, SECOND NURSE AND NURSES AID WERE STANDING OUTSIDE PATIENTS ROOM. THIS NURSE OPENED DOOR AND PT WAS STANDING ON SIDE OF THE BED LEANING FORWARD TRYING TO GRAB THE BEDSIDE COMMODE A FEW FEET AWAY. WE RAN INTO ROOM AND THIS NURSE AND NURSES AID WERE ON BOTH SIDES OF PT SHE WAS SWAYING AND TOLD HER OT SIT BACK ON THE BED, AT THIS TIME PT WENT FORWARD AND SECOND NURSE GRABBED HER FROM THE FRONT TO STEADY HER. WE TRIED TO GET HER TO SIT BACK ON EDGE OF BED PT KNEES GAVE OUT AND CONTINUED TO GO FORWARD. WE HELD PT UP AND TRIED TO SIT HER BACK ON BED BUT COULD NOT. WE ASSISTED PT TO HER KNEES AND THEN TO A SITTING POSITION ON THE FLOOR BY THE BED. AT THIS TIME WE CALLED A CODE MUSCLE TO GET MORE ASSISTANCE. MORE NURSES CAME TO ROOM AND HELPED PT OFF FLOOR AND BACK INTO BED. PT VOIDED AND HAD BM ON FLOOR WHILE SITTING. GAVE PT BED BATH AT THIS TIME AND LINENS CHANGED. CALLED DR SLATER TO DISCUSS PT VOIDING MORE WITH LASIX INCREASED AND NOT WANTING TO USE BEDPAN BUT IT BEING UNSAFE TO GET PT UP TO BEDSIDE COMMODE. DR SLATER DOES NOT WANT SAEED CATHETER AT THIS TIME. STATES HE WANTS US TO TRY TO USE PUREWICK AGAIN. PT HAD ISSUES BEFORE WITH PUREWICK AND STILL TRIED TO GET UP BECAUSE SHE DOES NOT LIKE THE FEELING OF URINATING IN THE BED. PUREWICK SET UP AT THIS TIME.
[2020-12-06] VITALS: BP 98/62
[2020-12-06 04:00] VITALS: BP 122/71
[2020-12-06 08:17] VITALS: BP 145/82
--- NOTE | 2020-12-06 08:55 | NUR ---
PC TO DIOR SLATER re: CONFIRMING DOPPLER STUDY OF ARMS ORDERED, WOULD LIKE TO HAVE THAT STUDY AND HE ADDED NEW ORDER FOR B/L STUDY OF LEGS, PC TO JOSE E TO CONFIRM BOTH ORDERS
--- NOTE | 2020-12-06 08:58 | NUR ---
BACK FROM RADIOLOGY RECONNECTED TO VAPOTHERM, NO DYSPNEA NOTED, REPOSITIONED UP FOR COMFORT, CALL LIGHT IN REACH
--- NOTE | 2020-12-06 09:07 | NUR ---
LAB HERE FOR BLOOD DRAW
[2020-12-06 10:14] LABS: CALC OSMOLALITY 287 mosm/kg (275-300); CALCIUM 8.1 mg/dL (8.5-10.1); CARBON DIOXIDE 31.4 mmol/L (21.0-32.0); CHLORIDE - SERUM 102 mmol/L (98-107); CREATININE - SERUM 0.5 mg/dL (0.6-1.3); GLUCOSE 165 mg/dL (74-106); POTASSIUM - SERUM 3.9 mmol/L (3.5-5.1); SODIUM 141 mmol/L (136-145); UREA NITROGEN 21 mg/dL (7-18); eGFR NON AFRICAN AMERICAN > 90 mL/min (90-120)
[2020-12-06 11:15] LABS: HEMOGLOBIN 12.2 g/dL (12-16); LYMPHOCYTES 7.6 % (15-50); MCH 28.8 pg (26.0-34.0); MCHC 32.1 g/dL (31.0-37.0); MCV 89.8 fL (80.0-100.0); NEUTROPHILS 90.3 % (40-80); RBC 4.23 10x6/uL (4.00-5.40); RDW 14.5 % (11.5-14.5); WBC 6.5 10x3/uL (4.8-10.8)
[2020-12-06 11:33] LABS: PLATELET COUNT 39 10x3/uL (130-400)
[2020-12-06 12:56] VITALS: BP 108/87
[2020-12-06 16:14] VITALS: BP 133/76
--- NOTE | 2020-12-06 19:03 | NUR ---
LYING IN BED AWAKE, ALERT, ORIENTED. MOF AT BEDSIDE. RESP EVEN AND UNLABORED W/VAPOTHERM IN PROGRESS. PAIN MED REQUETED--SEE DEC. NO FURTHER NEEDS VOICED AT THIS TIME.
[2020-12-06 20:00] VITALS: BP 129/75
[2020-12-07] VITALS: BP 134/81
[2020-12-07 04:00] VITALS: BP 113/67
--- NOTE | 2020-12-07 05:14 | NUR ---
LYING IN BED W/EYES CLOSED, AROUSES EASILY W/VERBAL STIMULI. RESP EVEN AND UNLABORED W/VAPOTHERM IN PROGRESS/ORDER. FS 114 NO INSULIN NEEDED. PT HAS RESTED WELL TONIGHT W/O C/O. NO DISTRESS NOTED.
[2020-12-07 07:14] LABS: CALC OSMOLALITY 284 mosm/kg (275-300); CALCIUM 7.7 mg/dL (8.5-10.1); CARBON DIOXIDE 35.4 mmol/L (21.0-32.0); CHLORIDE - SERUM 101 mmol/L (98-107); GLUCOSE 119 mg/dL (74-106); SODIUM 141 mmol/L (136-145); UREA NITROGEN 22 mg/dL (7-18)
[2020-12-07 07:18] LABS: CREATININE - SERUM 0.8 mg/dL (0.6-1.3); eGFR NON AFRICAN AMERICAN 78 mL/min (90-120)
[2020-12-07 07:22] LABS: POTASSIUM - SERUM 2.9 mmol/L (3.5-5.1)
[2020-12-07 09:21] VITALS: BP 151/79
--- NOTE | 2020-12-07 09:34 | NUR ---
PT SITTING UP IN BED. RESP SHALLOW. O2 VAPO THERM 35L/40%. AM MEDS ADMINISTERED AT THIS TIME. DENIES PAIN THIS AM. SALINE LOC TO LEFT AC, SITE WITHOUT REDNESS OR EDEMA. GENERLIZED BRUISING NOTED TO BILAT UPPER EXTREMITY. PT DENIES FURTHER NEEDS AT THIS TIME. CL WITHIN REACH. ENCOURAGED TO CALL WITH NEEDS. CONTINUE POC
[2020-12-07 13:06] VITALS: BP 137/84
[2020-12-07 17:03] VITALS: BP 115/88
--- NOTE | 2020-12-07 21:00 | NUR ---
PT SUPINE IN BED C/O BACK PAIN. PRN PAIN MEDICATION GIVEN WITH SCHEDULED MEDICATION. PT ASSISTED TO THE BSC FOR BOWEL MOVEMENT. PT ASSISTED BACK TO BED BY 2 STAFF AND READJUSTED IN THE BED FOR COMFORT. PUREWICK REPLACED AND ICE WATER GIVEN TO PATIENT. PT TOLERATED ACTIVITY WITH VAPORTHERM IN PLACE. WILL CONTINUE TO MONITOR PATIENT.
[2020-12-07 21:02] VITALS: BP 129/78
[2020-12-08 00:25] VITALS: BP 134/88
[2020-12-08 04:38] VITALS: BP 151/78
[2020-12-08 06:57] LABS: CALC OSMOLALITY 282 mosm/kg (275-300); CALCIUM 8.4 mg/dL (8.5-10.1); CARBON DIOXIDE 34.7 mmol/L (21.0-32.0); CHLORIDE - SERUM 100 mmol/L (98-107); CREATININE - SERUM 0.6 mg/dL (0.6-1.3); GLUCOSE 135 mg/dL (74-106); SODIUM 139 mmol/L (136-145); UREA NITROGEN 21 mg/dL (7-18); eGFR NON AFRICAN AMERICAN > 90 mL/min (90-120)
--- NOTE | 2020-12-08 08:18 | NUR ---
RESTING IN BED, NO DISTRESS NOTED, CONT TO MONITOR SUGARS, UP TO BSC WITH ASSIST, VAPOTHERM IN PLACE4
[2020-12-08 09:06] VITALS: BP 150/91
[2020-12-08 11:57] VITALS: BP 132/86
[2020-12-08 18:04] VITALS: BP 153/84
[2020-12-08 20:00] VITALS: BP 150/93
[2020-12-09] VITALS: BP 141/78
[2020-12-09 04:00] VITALS: BP 137/77
[2020-12-09 06:10] LABS: CALCIUM 8.3 mg/dL (8.5-10.1); CARBON DIOXIDE 29.1 mmol/L (21.0-32.0); CHLORIDE - SERUM 99 mmol/L (98-107); POTASSIUM - SERUM 3.4 mmol/L (3.5-5.1); SODIUM 133 mmol/L (136-145); UREA NITROGEN 20 mg/dL (7-18); eGFR NON AFRICAN AMERICAN 78 mL/min (90-120)
[2020-12-09 06:11] LABS: CALC OSMOLALITY 276 mosm/kg (275-300); CREATININE - SERUM 0.8 mg/dL (0.6-1.3); GLUCOSE 238 mg/dL (74-106)
--- NOTE | 2020-12-09 07:11 | NUR ---
I have reviewed this patient and I concur with the Shift Assessment completed by the Licensed Practical Nurse today this shift.
--- NOTE | 2020-12-09 07:30 | NUR ---
RESTING IN BED WITH EYES CLOSED, NO CURRENT S/S OF DISTRESS AT THIS TIME. IV LOCATED TO LEFT AC CURRENTLY SL. PUREWICK IN PLACE. WILL CONT TO MONITOR.
[2020-12-09 08:39] VITALS: BP 147/88
--- NOTE | 2020-12-09 10:57 | NUR ---
FSBS 345, TREATED WITH 20 UNITS.
[2020-12-09 13:31] VITALS: BP 151/85
[2020-12-09 17:06] VITALS: BP 151/88
[2020-12-09 20:00] VITALS: BP 143/86
[2020-12-10] VITALS: BP 137/84
--- NOTE | 2020-12-10 01:26 | NUR ---
I have reviewed this patient and I concur with the Shift Assessment completed by the Licensed Practical Nurse today this shift.
[2020-12-10 04:00] VITALS: BP 133/78
[2020-12-10 06:18] LABS: HEMATOCRIT 36.2 % (36.0-48.0); HEMOGLOBIN 11.3 g/dL (12-16); MCH 28.3 pg (26.0-34.0); MCHC 31.2 g/dL (31.0-37.0); MCV 90.7 fL (80.0-100.0); MEAN PLATELET VOLUME 10.6 fL (7.4-10.4); NEUTROPHIL ABS# 6.09 10x3/uL (1.56-6.13); RBC 3.99 10x6/uL (4.00-5.40); WBC 6.7 10x3/uL (4.8-10.8)
[2020-12-10 06:23] LABS: PLATELET COUNT 91 10x3/uL (130-400)
[2020-12-10 06:41] LABS: ANION GAP 9.3 mmol/L (8-16); CALCIUM 8.8 mg/dL (8.5-10.1); CARBON DIOXIDE 28.7 mmol/L (21.0-32.0); CREATININE - SERUM 0.9 mg/dL (0.6-1.3)
--- NOTE | 2020-12-10 08:49 | NUR ---
AM MEDS GIVEN AT THIS TIME. PT SITTING UP IN BED WITH HOB RAISED. RR EVEN NON LABORED WITH O2 IN PLACE AT THIS TIMME. PT TALKATIVE AND ANSWERS QUESTIONS APPROP. THIS MORNING. NO NEEDS VOICED. CLWR.
[2020-12-10 08:52] VITALS: BP 142/91
--- NOTE | 2020-12-10 09:54 | NUR ---
SCHEDULED MEDICATION GIVEN AT THIS TIME. PT AAOX3, LYING ON RIGHT SIDE. WARM BLANKET GIVEN PER REQUEST. IV INFUSING WITHOUT COMPLICATIONS. NO NEEDS VOICED AT THIS TIME. CLWR.
[2020-12-10 12:19] VITALS: BP 129/90
[2020-12-10 12:48] LABS: ANISOCYTOSIS OCC; LYMPHOCYTES 10 % (15-50); MONOCYTES 9 % (2-11); NEUTROPHILS 77 % (40-80); PLATELET ESTIMATE DECREASED
--- NOTE | 2020-12-10 13:20 | NUR ---
PT SITTING UP IN BED TALKING ON CELL PHONE, RR EVEN NON LABORED. O2 IN PLACE VIA VASOTHERM. NO NEEDS VOICED AT THIS TIME. CLWR.
--- NOTE | 2020-12-10 15:17 | NUR ---
DECREASED FLOW ON VAPOTHERM TO 15LPM PT TANNER WELL FIO2 REMAINS AT 30% PER DR ORDER
[2020-12-10 16:03] VITALS: BP 132/89
--- NOTE | 2020-12-10 16:22 | NUR ---
PT GIVEN MEDS PER EMAR. PT LYING IN BED ON CELL PHONE. RR EVEN NON LABORED WITH O2 IN PLACE. NO NEEDS VOICED. CLWR.
[2020-12-10 21:36] VITALS: BP 122/86
--- NOTE | 2020-12-10 23:31 | NUR ---
I have reviewed this patient and I concur with the Shift Assessment completed by the Licensed Practical Nurse today this shift.
[2020-12-11 01:23] VITALS: BP 121/73
[2020-12-11 04:00] VITALS: BP 135/79
[2020-12-11 08:39] LABS: ANION GAP 8.6 mmol/L (8-16); CALCIUM 8.7 mg/dL (8.5-10.1); CARBON DIOXIDE 31.5 mmol/L (21.0-32.0); CREATININE - SERUM 0.9 mg/dL (0.6-1.3); POTASSIUM - SERUM 4.1 mmol/L (3.5-5.1)
[2020-12-11 10:27] VITALS: BP 121/84
--- NOTE | 2020-12-11 11:16 | NUR ---
PLACED PT ON 7 LPM HF NASEL CANNULA SPO2 97%
--- NOTE | 2020-12-11 11:26 | NUR ---
LYING IN BED RESTING WITH NADN. AAOX3. RESP EVEN AND UNLABORED. SKIN WARM AND DRY. DENIES ANY PAIN OR DISCOMFORT. ADMINISTERED AM MEDS AND TOLERATED WELL. WILL CONTINUE TO MONITOR. CALL RICE WITHIN REACH.
[2020-12-11 13:58] VITALS: BP 121/82
--- NOTE | 2020-12-11 14:17 | NUR ---
Nutrition reassessment/follow-up: Diet: consistent CHO PO Intake continues to be 100% of most meals Labs reviewed; glucose elevated due to prednisome Wt: 179# +BM Pt now assessed at low nutritional risk. RDN will follow-up on pts progress every 7 days. Follow-up: 12/18/20
--- NOTE | 2020-12-11 16:41 | NUR ---
NOTIFIED MD OF PT GLUCOSE LEVEL 442 WITH NEW ORDER NOTED LANTUS 30 UNITS QHS IN ADDITION TO SLIDING SCALE INSULIN
[2020-12-11 18:31] VITALS: BP 129/86
[2020-12-11 20:00] VITALS: BP 158/89
[2020-12-12] VITALS (43 sets, daily range): BP systolic 61–144; BP diastolic 31–104; Ht 154.9 cm; Wt 90.2 kg
--- NOTE | 2020-12-12 07:04 | NUR ---
Patient had pain that was managed with the prescribed pain medication, purwick catheter changed on this shift. She is currently resting in bed.
--- NOTE | 2020-12-12 08:18 | NUR ---
NOTIFIED MD OF PT CHANGE OF CONDITION HR 134 BP 75/52 O2 SAT 82 NEW ORDER NOTED FOR TELE MONITOR 12 LEAD EKG AND NOTIFIED REPSIRATORY TO INCREASE O2.
--- NOTE | 2020-12-12 09:15 | NUR ---
INITIATED CODE SEPSIS PATIENT VITALS BP115/68 P144 O2 96% ON 40 LPM 100% O2 VAPOTHERM T101.1 R32.
[2020-12-12 09:54] LABS: BASOPHILS 0.1 % (0-2); EOSINOPHILS 0.2 % (0-7); HEMATOCRIT 43.4 % (36.0-48.0); HEMOGLOBIN 13.8 g/dL (12-16); LYMPHOCYTE ABS# 2.14 10x3/uL (1.18-3.74); LYMPHOCYTES 15.7 % (15-50); MCH 28.6 pg (26.0-34.0); MCHC 31.8 g/dL (31.0-37.0); MCV 89.9 fL (80.0-100.0); NEUTROPHIL ABS# 10.88 10x3/uL (1.56-6.13); RBC 4.83 10x6/uL (4.00-5.40); WBC 13.6 10x3/uL (4.8-10.8)
[2020-12-12 09:57] LABS: PLATELET COUNT 141 10x3/uL (130-400)
[2020-12-12 10:06] LABS: ALBUMIN 2.6 g/dL (3.4-5.0); ANION GAP 8.6 mmol/L (8-16); BILIRUBIN - TOTAL 0.8 mg/dL (0.2-1.3); CARBON DIOXIDE 32.5 mmol/L (21.0-32.0); CREATININE - SERUM 0.9 mg/dL (0.6-1.3); POTASSIUM - SERUM 4.1 mmol/L (3.5-5.1); PROTEIN - SERUM 5.8 g/dL (6.4-8.2)
--- NOTE | 2020-12-12 10:19 | NUR ---
PATIENT TRANSFERED TP ICU
--- NOTE | 2020-12-12 10:22 | NUR ---
PT ARRIVED FROM CODE SEPSIS ON MED/SURG VIA BED. RR LABORED. PLACED ON VAPOTHERM 100%. RESPIRATORY AT BEDSIDE. 20 G IV NOTED TO LEFT AC. DR. TEO LOCKETT. 500 ML IV BOLUS GIVEN X1 DUE TO BP 68/51. MAP 57. PT ALERT AND ORIENTED X3. STATES SHE CAN'T BREATH. SATURATIONS 85-98%. PLACED ON BIPAP @ 80% O2. BP IMPROVED TO 123/55 (75). PT AGGITATED AND RESTLESS. CONSENT RECIEVED FROM PT TO HAVE A CVL PLACED. CONSENT PLACED IN CHART. UNABLE TO SIGN DUE TO RESPIRATORY STATUS. MEPILEX REMOVED FROM BOTTOM, X2 SKIN ABRAISIONS/TEARS ON BOTTOM. NEW MEPILEX PLACED BACK ON. 1130- SURGERY RETAIL KEY HOLDER AT BEDSIDE TO PLACE CVL TO RIGHT IJ. XRAY COMPLETED AND STATES CVL IN GOOD POSITION TO USE. BP 67/36 (47). INITIATED NOREPINEPHERINE PER ORDER. PT WAS ALSO STATING SHE COULD NOT BREATH WHILE SATTING 96%. STILL AGGITATED, PRN ORDER FOR ATIVAN OBTAINED AND RECIEVED PER ORDER. PT DENIES FURTHER NEEDS OR PAIN AT THIS TIME. BED REAILS UP X2. BED IN LOWEST POSITION. CALL LIGHT WITHIN REACH.
[2020-12-12 13:40] LABS: BACTERIA FEW HPF (NONE SEEN); BILIRUBIN NEGATIVE (NEGATIVE); KETONE NEGATIVE (NEGATIVE); NITRITE NEGATIVE (NEGATIVE); SQUAMOUS EPITHELIAL 0-5 HPF (0-4); UROBILINOGEN NORMAL mg/dL (< 2); WHITE CELLS - URINE OCC HPF (0-4)
--- NOTE | 2020-12-12 14:30 | NUR ---
FOLLOWED UP WITH DR. BRUCE ABOUT ORDEDRING ABX FOR PT. STATED HE WOULD TAKE CARE OF IT. NO ORDERS RECIEVED AT THIS TIME.
--- NOTE | 2020-12-12 18:24 | NUR ---
I have reviewed this patient and I concur with the Shift Assessment completed by the Licensed Practical Nurse today this shift.
[2020-12-13] VITALS (90 sets, daily range): BP systolic 61–146; BP diastolic 51–101
[2020-12-13 04:48] LABS: ALKALINE PHOSPHATASE 68 U/L (30-120); BILIRUBIN - TOTAL 1.25 mg/dL (0.2-1.3); CALCIUM 8.1 mg/dL (8.5-10.1); CARBON DIOXIDE 25.6 mmol/L (21.0-32.0); CHLORIDE - SERUM 104 mmol/L (98-107); CREATININE - SERUM 0.8 mg/dL (0.6-1.3); MAGNESIUM - SERUM 1.9 mg/dL (1.8-2.4); PHOSPHOROUS 4.4 mg/dL (2.5-4.9); POTASSIUM - SERUM 4.1 mmol/L (3.5-5.1); PROTEIN - SERUM 5.4 g/dL (6.4-8.2); SODIUM 137 mmol/L (136-145); UREA NITROGEN 32 mg/dL (7-18); eGFR NON AFRICAN AMERICAN 78 mL/min (90-120)
[2020-12-13 04:57] LABS: ALT (SGPT) 107 U/L (10-68); CALC OSMOLALITY 288 mosm/kg (275-300); GLUCOSE 248 mg/dL (74-106); TROPONIN-I 0.076 ng/mL (0.000-0.060)
[2020-12-13 05:04] LABS: BASOPHILS 0.1 % (0-2); EOSINOPHILS 0 % (0-7); HEMOGLOBIN 11.5 g/dL (12-16); IMMATURE GRANULOCYTES 0.8 % (0-5); LYMPHOCYTE ABS# 0.69 10x3/uL (1.18-3.74); LYMPHOCYTES 6.6 % (15-50); MCH 28.9 pg (26.0-34.0); MCHC 32.9 g/dL (31.0-37.0); MEAN PLATELET VOLUME 10.1 fL (7.4-10.4); MONOCYTES 1.4 % (2-11); NEUTROPHIL ABS# 9.53 10x3/uL (1.56-6.13); NEUTROPHILS 91.1 % (40-80); RBC 3.98 10x6/uL (4.00-5.40); RDW 15.9 % (11.5-14.5); WBC 10.5 10x3/uL (4.8-10.8)
[2020-12-13 05:08] LABS: MCV 87.9 fL (80.0-100.0); PLATELET COUNT 76 10x3/uL (130-400); PLATELET ESTIMATE DECREASED
--- NOTE | 2020-12-13 07:15 | NUR ---
SHIFT REPORT RECEIVED. PT AWAKE AND ALERT. ON 30L 100% VAPOTHERM. NO FEVER NOTED. HAS RIJ WITH LR AT 75ML/HR, D5 AT 50ML/HR, LEVOPHED AT 5MCG/MIN AND VASOPRESSIN AT 0.04UNITS/MIN. GENERALIZED BRUISING NOTED. MEPILEX TO BUTTOCKS. ASSISTED OFF BED MARTINO AT THIS TIME. LARGE AMOUNT OF STOOL NOTED. PERICARE PROVIDED. SAEED CATHETER IN PLACE WITH YELLOW URINE NOTED. SAFETY MEASURES IN PLACE. WILL CONTINUE TO MONITOR.
--- NOTE | 2020-12-13 10:00 | NUR ---
CALL RECEIVED FROM LEVI HECTOR, PT'S DAUGHTER. PASSCODE VERIFIED. UPDATE GIVEN.
--- NOTE | 2020-12-13 12:34 | NUR ---
Nutrition follow-up/reassess: Pt now in ICU due to code sepsis Diet: Consistent CHO PO intake prior to code sepsis was 100% of most meals labs reviewed Wt: 208# CVL placed Pt now assessed again at nutritional risk R/T inadequate oral intake R/T decrease in cognition. Estimated needs based on AdjBW of 60 [id number] kcal (25-35 kcal/kg) 60-75 g protein (1.0-1.3 gm/kg) 7154-3745 ml or per MD order Goalss: - po intake =/> 75% of meals, snacks - Will meet at least 75% of estimated fluid needs without fluid overload - stable dry wt -10# - Glucose maintained at or near normal range Interventions: Will provide food choices with selective menus and honor food preferences. Will offer nutritional supplements RDN follow-up: 12/17/20
[2020-12-14] VITALS (52 sets, daily range): BP systolic 90–152; BP diastolic 45–101
[2020-12-14 07:14] LABS: ALBUMIN 1.7 g/dL (3.4-5.0); ALKALINE PHOSPHATASE 54 U/L (30-120); BILIRUBIN - TOTAL 0.53 mg/dL (0.2-1.3); CALC OSMOLALITY 275 mosm/kg (275-300); CALCIUM 8.3 mg/dL (8.5-10.1); CARBON DIOXIDE 27.1 mmol/L (21.0-32.0); CHLORIDE - SERUM 101 mmol/L (98-107); CREATININE - SERUM 0.8 mg/dL (0.6-1.3); GLUCOSE 263 mg/dL (74-106); LDH 447 U/L (81-234); PROTEIN - SERUM 4.8 g/dL (6.4-8.2); SODIUM 131 mmol/L (136-145); UREA NITROGEN 25 mg/dL (7-18); eGFR NON AFRICAN AMERICAN 78 mL/min (90-120)
[2020-12-14 07:16] LABS: ALT (SGPT) 62 U/L (10-68); BASOPHILS 0 % (0-2); EOSINOPHILS 0 % (0-7); IMMATURE GRANULOCYTES 0.5 % (0-5); LYMPHOCYTE ABS# 0.35 10x3/uL (1.18-3.74); LYMPHOCYTES 18.3 % (15-50); MCH 27.9 pg (26.0-34.0); MCV 87.3 fL (80.0-100.0); MEAN PLATELET VOLUME 9.7 fL (7.4-10.4); MONOCYTES 2.1 % (2-11); NEUTROPHIL ABS# 1.51 10x3/uL (1.56-6.13); NEUTROPHILS 79.1 % (40-80); RDW 15.6 % (11.5-14.5)
[2020-12-14 07:20] LABS: HEMATOCRIT 21.9 % (36.0-48.0); RBC 2.51 10x6/uL (4.00-5.40); WBC 1.9 10x3/uL (4.8-10.8)
[2020-12-14 07:21] LABS: PLATELET COUNT 32 10x3/uL (130-400)
--- NOTE | 2020-12-14 08:04 | NUR ---
REPORTED CL COUNTS TO DR. SLATER AND COMPARED TO LABS YESTERDAY. ORDERS TO REPEAT THE LAB.
--- NOTE | 2020-12-14 09:15 | NUR ---
DR. BRUCE HERE FOR ROUNDS. ORDERS RECEIVED.
[2020-12-14 09:49] LABS: APTT 29.5 SECONDS (22.8-39.4); D-DIMER-QUANTITATIVE 3.54 ug/mLFEU (0.20-0.54); INR 1.34 (0.85-1.17); PROTIME 15.4 SECONDS (11.6-15.0)
[2020-12-14 10:02] LABS: BASOPHILS 0 % (0-2); EOSINOPHILS 0 % (0-7); HEMATOCRIT 21.8 % (36.0-48.0); MCH 28.4 pg (26.0-34.0); MCHC 32.6 g/dL (31.0-37.0); MCV 87.2 fL (80.0-100.0); MEAN PLATELET VOLUME 11.3 fL (7.4-10.4); MONOCYTES 1.2 % (2-11); NEUTROPHIL ABS# 1.44 10x3/uL (1.56-6.13); NEUTROPHILS 86.8 % (40-80); RDW 15.6 % (11.5-14.5)
[2020-12-14 10:23] LABS: WBC 1.7 10x3/uL (4.8-10.8)
[2020-12-14 10:24] LABS: HEMOGLOBIN 7.1 g/dL (12-16); PLATELET COUNT 37 10x3/uL (130-400)
--- NOTE | 2020-12-14 10:25 | NUR ---
CL CBC REPORTED TO DR. BRUCE. WILL CONSULT DR. HANSEN PER ORDER.
--- NOTE | 2020-12-14 10:30 | NUR ---
D-DIMER ALSO REPORTED TO TEO. NO NEW ORDERS. MELATONIN REQUESTED BY PT FOR SLEEP. ORDERS RECEIVED BY DR. BRUCE FOR THIS.
--- NOTE | 2020-12-14 10:41 | NUR ---
DR. HASNEN CONSULTED BY ME. REPORTED CL CBC. SHE SAYS SHE WILL COME SEE HER.
--- NOTE | 2020-12-14 12:40 | NUR ---
DR. HANSEN ROUNDING ON PT. ORDERS RECEIVED.
[2020-12-14 14:02] LABS: BASOPHILS 0 % (0-2); EOSINOPHILS 0 % (0-7); HEMATOCRIT 22.8 % (36.0-48.0); IMMATURE GRANULOCYTES 1.1 % (0-5); LYMPHOCYTE ABS# 0.17 10x3/uL (1.18-3.74); LYMPHOCYTES 9.3 % (15-50); MCH 28.6 pg (26.0-34.0); MCHC 32.5 g/dL (31.0-37.0); MEAN PLATELET VOLUME 11.3 fL (7.4-10.4); MONOCYTES 3.3 % (2-11); NEUTROPHIL ABS# 1.58 10x3/uL (1.56-6.13); NEUTROPHILS 86.3 % (40-80); RBC 2.59 10x6/uL (4.00-5.40); RDW 15.6 % (11.5-14.5)
[2020-12-14 14:03] LABS: RETIC 2.76 % (0.45-2.28); WBC 1.8 10x3/uL (4.8-10.8)
[2020-12-14 14:04] LABS: HEMOGLOBIN 7.4 g/dL (12-16); PLATELET COUNT 43 10x3/uL (130-400)
--- NOTE | 2020-12-14 14:37 | NUR ---
CRITICAL CBC CALLED TO DR. HANSEN. MIKE VICTOR ORDERED.
--- NOTE | 2020-12-14 17:04 | NUR ---
DR. SLATER CALLED FOR FSBS. ORDERS RECEIVED.
[2020-12-15] VITALS (24 sets, daily range): BP systolic 106–157; BP diastolic 51–95
[2020-12-15 05:11] LABS: HEMATOCRIT 23.5 % (36.0-48.0); LYMPHOCYTE ABS# 0.12 10x3/uL (1.18-3.74); MCH 28.4 pg (26.0-34.0); MCHC 31.9 g/dL (31.0-37.0); NEUTROPHIL ABS# 2.35 10x3/uL (1.56-6.13); PLATELET COUNT 50 10x3/uL (130-400); RBC 2.64 10x6/uL (4.00-5.40); RDW 15.9 % (11.5-14.5)
[2020-12-15 05:30] LABS: WBC 2.8 10x3/uL (4.8-10.8)
[2020-12-15 05:32] LABS: HEMOGLOBIN 7.5 g/dL (12-16)
[2020-12-15 05:44] LABS: ALKALINE PHOSPHATASE 66 U/L (30-120); ALT (SGPT) 51 U/L (10-68); BILIRUBIN - TOTAL 0.47 mg/dL (0.2-1.3); CALCIUM 9.3 mg/dL (8.5-10.1); CARBON DIOXIDE 28.1 mmol/L (21.0-32.0); CHLORIDE - SERUM 103 mmol/L (98-107); CREATININE - SERUM 0.7 mg/dL (0.6-1.3); POTASSIUM - SERUM 3.6 mmol/L (3.5-5.1); PROTEIN - SERUM 5.3 g/dL (6.4-8.2); SODIUM 137 mmol/L (136-145); eGFR NON AFRICAN AMERICAN > 90 mL/min (90-120)
[2020-12-15 05:45] LABS: ALBUMIN 2.2 g/dL (3.4-5.0); CALC OSMOLALITY 287 mosm/kg (275-300); GLUCOSE 315 mg/dL (74-106); UREA NITROGEN 18 mg/dL (7-18)
[2020-12-15 07:30] LABS: LYMPHOCYTES 13 % (15-50); NEUTROPHILS 87 % (40-80); PLATELET ESTIMATE DECREASED
--- NOTE | 2020-12-15 09:09 | NUR ---
1376-DR SLATER AT BEDSIDE AND SPOKE WITH PT-VAPOTHERM REMAINS ON AND RESECURED-PT NOT ABLE TO FIND GLASSES-ALL LINENS CHECKED AND AREA AROUND PT UNDER BED--PT STATED READERS THAT YOU BUY AT [facility]- WILL OBTAIN MORE
--- NOTE | 2020-12-15 10:36 | NUR ---
DR BRUCE AT BEDSIDE-- STATUS REPORT GIVEN-- ORDERS RECIEVED
[2020-12-15 11:05] LABS: % SATURATION 38 % (15-55); IRON 55 ug/dl (35-150); TOTAL IRON BIND CAPACITY 143 ug/dl (260-445); UNSAT IRON BIND CAPACITY 88 ug/dl (150-375)
--- NOTE | 2020-12-15 12:38 | NUR ---
LAB AT BEDSIDE-BLOODD DRAWN ORDERED
[2020-12-16] VITALS (11 sets, daily range): BP systolic 120–154; BP diastolic 61–86
[2020-12-16 04:24] LABS: BASOPHILS 0 % (0-2); EOSINOPHILS 0 % (0-7); HEMATOCRIT 29.7 % (36.0-48.0); HEMOGLOBIN 9.7 g/dL (12-16); IMMATURE GRANULOCYTES 13.5 % (0-5); LYMPHOCYTE ABS# 0.32 10x3/uL (1.18-3.74); LYMPHOCYTES 9.4 % (15-50); MCHC 32.7 g/dL (31.0-37.0); MCV 85.8 fL (80.0-100.0); NEUTROPHIL ABS# 2.57 10x3/uL (1.56-6.13); NEUTROPHILS 75.1 % (40-80); RBC 3.46 10x6/uL (4.00-5.40); RDW 17.4 % (11.5-14.5); WBC 3.4 10x3/uL (4.8-10.8)
[2020-12-16 04:25] LABS: PLATELET COUNT 48 10x3/uL (130-400)
[2020-12-16 04:41] LABS: ALBUMIN 2.3 g/dL (3.4-5.0); ANION GAP 7.2 mmol/L (8-16); BILIRUBIN - TOTAL 0.49 mg/dL (0.2-1.3); CALCIUM 8.7 mg/dL (8.5-10.1); CARBON DIOXIDE 29.8 mmol/L (21.0-32.0); PROTEIN - SERUM 5.2 g/dL (6.4-8.2)
[2020-12-16 05:00] LABS: CREATININE - SERUM 0.9 mg/dL (0.6-1.3)
--- NOTE | 2020-12-16 10:49 | NUR ---
0930-DR TEO BERNARDO-STATUS REPORT-ORDERS RECIEVED AND PLACED IN COMPUTER BY Ethan HERNDON- 8218-PHYSICAL THERAPY-ABLE TO STAND PT AT SIDE OF BED AND TOLERATED WELL-ARTISCK CHANGED PER PROTOCOL-SHELLEY CHANGED- 1000-PT WEEPING STATING I WANT TO GO HOME TUES-STRESSED TO PT TO WORK WELL WITH PHYSICAL THERAPY AND ATTAINABLE GOAL-PT STATED MY WILL HELP ME AT HOME
[2020-12-16 13:46] LABS: VANCOMYCIN - TROUGH 14.4 ug/mL (10.0-20.0)
[2020-12-16 13:47] LABS: POTASSIUM - SERUM 3.6 mmol/L (3.5-5.1)
--- NOTE | 2020-12-17 03:14 | NUR ---
HAS RESTED FAIR THIS SHIFT. HENOKITUSSIN GIVEN X 1 FOR COMPLAINT OF COUGH WITH GOOD RESULTS. ACCU CHECK AT HS WAS 353 AND PATIENT RECEIVED 24 UNITS OF HUMALOG PER SLIDING SCALE. PURE WICK IN USE AND PATENT AT THIS TIME. ENCOURAGED TO CALL FOR ASSISTANCE WITH NEEDS. CALL LIGHT IN EASY REACH. SAFETY ROUNDS MADE.
[2020-12-17 04:00] VITALS: BP 115/52
--- NOTE | 2020-12-17 07:20 | NUR ---
REC'D IN BED WITH EYES CLOSED EASILY TO AROUSED WHEN NAME IS CALLED. RESP EVEN AND UNLABORED WITH NO DISTRESS NOTED. CAN EXPRESS NEEDS AND WANTS. NO C/O NOTED OR VOICED. ASSESSMENT COMPLETED. C/L IN REACH AT BEDSIDE.
[2020-12-17 08:29] VITALS: BP 142/65
--- NOTE | 2020-12-17 08:38 | NUR ---
WAS MEDICATED WITH OXY IR PER ORDERS FOR C/O BACK PAIN. C/L IN REACH AT BEDSIDE.
[2020-12-17 10:14] LABS: BASOPHILS 0.5 % (0-2); EOSINOPHILS 0 % (0-7); HEMATOCRIT 31.6 % (36.0-48.0); HEMOGLOBIN 10.4 g/dL (12-16); IMMATURE GRANULOCYTES 1.6 % (0-5); LYMPHOCYTE ABS# 0.57 10x3/uL (1.18-3.74); LYMPHOCYTES 15.2 % (15-50); MCH 28.1 pg (26.0-34.0); MCHC 32.9 g/dL (31.0-37.0); MCV 85.4 fL (80.0-100.0); MEAN PLATELET VOLUME 10.7 fL (7.4-10.4); MONOCYTES 9.8 % (2-11); NEUTROPHIL ABS# 2.74 10x3/uL (1.56-6.13); NEUTROPHILS 72.9 % (40-80); RDW 17.4 % (11.5-14.5); WBC 3.8 10x3/uL (4.8-10.8)
[2020-12-17 10:15] LABS: PLATELET COUNT 63 10x3/uL (130-400)
[2020-12-17 10:17] LABS: ALBUMIN 2.3 g/dL (3.4-5.0); ALKALINE PHOSPHATASE 56 U/L (30-120); ALT (SGPT) 44 U/L (10-68); BILIRUBIN - TOTAL 0.54 mg/dL (0.2-1.3); CARBON DIOXIDE 28.9 mmol/L (21.0-32.0); CHLORIDE - SERUM 108 mmol/L (98-107); CREATININE - SERUM 0.7 mg/dL (0.6-1.3); POTASSIUM - SERUM 3.4 mmol/L (3.5-5.1); PROTEIN - SERUM 5.2 g/dL (6.4-8.2); SODIUM 143 mmol/L (136-145); UREA NITROGEN 19 mg/dL (7-18); eGFR NON AFRICAN AMERICAN > 90 mL/min (90-120)
[2020-12-17 10:18] LABS: CALC OSMOLALITY 286 mosm/kg (275-300); GLUCOSE 91 mg/dL (74-106)
--- NOTE | 2020-12-17 10:38 | NUR ---
PATIENT IN BED. TALKING ON THE PHONE. DENIES NEEDS AT THIS TIME. BED LOW POSITION, CALL LIGHT IN REACH. WILL CONTINUE TO MONITOR.
[2020-12-17 11:35] LABS: PLATELET ESTIMATE DECREASED
[2020-12-17 11:37] LABS: ANISOCYTOSIS OCC
[2020-12-17 12:43] VITALS: BP 135/84
--- NOTE | 2020-12-17 13:40 | MORECARE ---
CASE MANAGEMENT DISCHARGE SUMMARY PATIENT: LAZARUS HECTOR UNIT: [id number] ADM DATE: 11/20/20 AGE: 59 : 62 SEX: F ROOM/BED: D.2240 AUTHOR: KEVIN,DOC PHYSICIAN: REFERRING PHYSICIAN: EVITA SLATER MD DATE OF SERVICE: 12/17/20 Discharge Plan Patient Name: LAZARUS HECTOR Facility: [facility]:[place] : 1960 Planned Disposition: Anticipated Discharge Date: Discharge Date: Expected LOS: Initial Reviewer: [id number] Initial Review Date: 11/20/2020 Generated: 12/17/20 2:39 pm DCP- Discharge Planning Updated by [id number]: Marcythea Rogel on 12/05/20 1:[address] Patient Name: LAZARUS HECTOR Admission Status: ER Accout number: [id number] Admission Date: 11-20-2020 : 1960 Admission Diagnosis:PNEUMONIA, UNSPECIFIED ORGANISM Attending: EVITA SLATER Current LOS: 15 Anticipated DC Date: Planned Disposition: Primary Insurance: [employer]ED MEDICAID Discharge Planning Comments: ATTEMPTED TO CONTACT PATIENT MULTIPLE TIMES FROM HER ROOM AND NO ANSWER. SHE IS ON ISOLATION AIRBORN. MOST INFORMATION WAS OBTAINED FROM THE CHART. PATIENT CURRENTLY ON VAPOTHERM. DEPENDING ON HOW SHE PROGRESSES I ANTICIPATE REHAB VS HOME WITH HOME HEALTH. SHE MAY NEED HOME OXYGEN ALSO. CM TO FOLLOW AND ASSIST NEEDED. Adjunct Writing Instructor: Marcy Rogel DCP- Discharge Planning Updated by [id number]: Marcy Rogel on 11/29/20 12:[address] Patient Name: LAZARUS HECTOR Admission Status: ER Accout number: [id number] Admission Date: 11-20-2020 : 1960 Admission Diagnosis:PNEUMONIA, UNSPECIFIED ORGANISM Attending: EVITA SLATER Current LOS: 9 Anticipated DC Date: Planned Disposition: Primary Insurance: NOV[employer] MA[employer]GED MEDICAID Discharge Planning Comments: ATTEPTED TO CALL PATIENT IN HER ROOM. NO ANSWER, THIS MAY BE DO TO HER NOW BEING ON VAPOTHERM. I WILL TRY CONTING HER AT A LATER TIME TO DO DISCHARGE PLANNING. CM TO FOLLOW AND ASSIST NEEDED. Adjunct Writing Instructor: Marcy Rogel DCPIA - Discharge Planning Initial Assessment Updated by [email or web address]: Marcy Rogel on 12/05/20 1:56 pm * PCP NOEHMY * Pharmacy [facility] * Preadmission Environment Home with Family * ADLs Independent * Other Equipment WALKER * List name and contact numbers for known caregivers / representatives who currently or will assist patient after discharge: TREVIN BRAND, * Additional services required to return to the preadmission environment? Yes * Has this patient been hospitalized within the prior 30 days at any hospital? Yes External Providers External Provider: Marce [facility] Next Contact Date: Service Request Date: Service Type: Resolution: Reviewer: Comments: Last DP export: 12/05/20 1:35 p Patient Name: LAZARUS HECTOR Page [phone] at 1340 All edits/amendments must be made on the electronic document DICTATION DATE: 12/17/20 1340 GRADUATE STUDIES DEAN: ELISEO 12/17/20 1340 RPT#: [id number] DC DATE: STATUS: ADM IN [facility] [address] [facility] [place] [address] END OF REPORT
--- NOTE | 2020-12-17 13:49 | MORECARE ---
CASE MANAGEMENT DISCHARGE SUMMARY PATIENT: LAZARUS HECTOR UNIT: [id number] ADM DATE: 11/20/20 AGE: 59 : 62 SEX: F ROOM/BED: D.2240 AUTHOR: KEVIN,DOC PHYSICIAN: REFERRING PHYSICIAN: EVITA SLATER MD DATE OF SERVICE: 12/17/20 Discharge Plan Patient Name: LAZARUS HECTOR Facility: [facility]:[place] : 1960 Planned Disposition: Anticipated Discharge Date: Discharge Date: Expected LOS: Initial Reviewer: [email or web address] Initial Review Date: 11/20/2020 Generated: 12/17/20 2:48 pm Comments DCP- Discharge Planning Updated by [email or web address]: Marcy Rogel on 12/17/20 12:[address] Patient Name: LAZARUS HECTOR Admission Status: ER Accout number: [id number] Admission Date: 11-20-2020 : 1960 Admission Diagnosis:PNEUMONIA, UNSPECIFIED ORGANISM Attending: EVITA SLATER Current LOS: 27 Anticipated DC Date: Planned Disposition: Primary Insurance: NOV[employer] MA[employer]GED MEDICAID Discharge Planning Comments: [facility] LT[facility]. WAITING CALL BACK FROM [facility]. CM TO FOLLOW AND ASSIST NEEDED. Form Setter Steel Pan Forms: Marcy Rogel DCP- Discharge Planning Updated by [email or web address]: Marcy Rogel on 12/05/20 1:[address] Patient Name: LAZARUS HECTOR Admission Status: ER Accout number: [id number] Admission Date: 11-20-2020 : 1960 Admission Diagnosis:PNEUMONIA, UNSPECIFIED ORGANISM Attending: EVITA SLATER Current LOS: 15 Anticipated DC Date: Planned Disposition: Primary Insurance: [employer]GED MEDICAID Discharge Planning Comments: ATTEMPTED TO CONTACT PATIENT MULTIPLE TIMES FROM HER ROOM AND NO ANSWER. SHE IS ON ISOLATION AIRBORN. MOST INFORMATION WAS OBTAINED FROM THE CHART. PATIENT CURRENTLY ON VAPOTHERM. DEPENDING ON HOW SHE PROGRESSES I ANTICIPATE REHAB VS HOME WITH HOME HEALTH. SHE MAY NEED HOME OXYGEN ALSO. CM TO FOLLOW AND ASSIST NEEDED. Form Setter Steel Pan Forms: Marcy Rogel DCP- Discharge Planning Updated by [id number]: Marcy Rogel on 11/29/20 12:[address] Patient Name: LAZARUS HECTOR Admission Status: ER Accout number: [id number] Admission Date: 11-20-2020 : 1960 Admission Diagnosis:PNEUMONIA, UNSPECIFIED ORGANISM Attending: EVITA SLATER Current LOS: 9 Anticipated DC Date: Planned Disposition: Primary Insurance: NOV[employer]YS MA[employer]GED MEDICAID Discharge Planning Comments: ATTEPTED TO CALL PATIENT IN HER ROOM. NO ANSWER, THIS MAY BE DO TO HER NOW BEING ON VAPOTHERM. I WILL TRY CONTING HER AT A LATER TIME TO DO DISCHARGE PLANNING. CM TO FOLLOW AND ASSIST NEEDED. Form Setter Steel Pan Forms: Marcy Pebbles DCPIA - Discharge Planning Initial Assessment Updated by [id number]: Marcy Rogel on 12/05/20 1:56 pm * PCP NOHEMY * Pharm[facility] * Preadmission Environment Home with Family * ADLs Independent * Other Equipment WALKER * List name and contact numbers for known caregivers / representatives who currently or will assist patient after discharge: SUNDAY, , * Additional services required to return to the preadmission environment? Yes * Has this patient been hospitalized within the prior 30 days at any hospital? Yes Last DP export: 12/17/20 12:40 pm Patient Name: LAZARUS HECTOR Page 13168 at 1349 All edits/amendments must be made on the electronic document DICTATION DATE: 12/17/20 1348 LEAD CARPENTER: ELISEO 12/17/20 1348 RPT#: [id number] DC DATE: STATUS: ADM IN [facility] [address] [place] [address] END OF REPORT
--- NOTE | 2020-12-17 14:05 | NUR ---
Nutrition follow-up: Diet order: Consistent CHO PO intake 100% of most meals Labs reviewed; Glucose has been running high at times Wt: 204# +BM PO intake remains good at this time RDN follow-up: 12/21/20
--- NOTE | 2020-12-17 14:19 | NUR ---
HERE AT THIS TIME MAKING ROUNDS REC'D NEW ORDERS TO TAKE PT OFF OF VAPORTHERM AND PLACE ON HIGH FLOW AT 15 L/M. RT WAS NOTIFED OF NEW ORDER.
--- NOTE | 2020-12-17 14:27 | NUR ---
PT PLACED ON HFNC@15LPM PER VERBAL ORDER DR GIBSON
[2020-12-17 16:23] VITALS: BP 137/67
--- NOTE | 2020-12-17 16:59 | NUR ---
WAS MEDICATED WITH OXY PER ORDER FOR C/O BACK PAIN. C/L IN REACH AT BEDSIDE.
[2020-12-17 20:00] VITALS: BP 157/80
[2020-12-18 04:00] VITALS: BP 151/76
--- NOTE | 2020-12-18 04:27 | NUR ---
HAS RESTED WELL THIS SHIFT. OXYCODONE GIVEN X1 WITH GOOD RESULTS FOR COMPLAINTS OF HURTING ALL OVER. TOLERATING IV ANTIBIOTICS WELL. ENCOURAGED TO CALL FOR ASSISTANCE NEEDED. CALL LIGHT IN EASY REACH. SAFETY ROUNDS MADE.
[2020-12-18 06:49] LABS: BASOPHILS 0.4 % (0-2); EOSINOPHILS 0 % (0-7); HEMATOCRIT 32.3 % (36.0-48.0); HEMOGLOBIN 10.4 g/dL (12-16); IMMATURE GRANULOCYTES 1.1 % (0-5); LYMPHOCYTE ABS# 0.42 10x3/uL (1.18-3.74); LYMPHOCYTES 15.5 % (15-50); MCH 27.6 pg (26.0-34.0); MCHC 32.2 g/dL (31.0-37.0); MCV 85.7 fL (80.0-100.0); MEAN PLATELET VOLUME 10.3 fL (7.4-10.4); MONOCYTES 19.6 % (2-11); NEUTROPHIL ABS# 1.72 10x3/uL (1.56-6.13); NEUTROPHILS 63.4 % (40-80); PLATELET COUNT 59 10x3/uL (130-400); RBC 3.77 10x6/uL (4.00-5.40); RDW 17.6 % (11.5-14.5)
[2020-12-18 06:52] LABS: WBC 2.7 10x3/uL (4.8-10.8)
[2020-12-18 07:03] LABS: CALC OSMOLALITY 284 mosm/kg (275-300); CALCIUM 8.5 mg/dL (8.5-10.1); CARBON DIOXIDE 29.3 mmol/L (21.0-32.0); CHLORIDE - SERUM 106 mmol/L (98-107); CREATININE - SERUM 0.7 mg/dL (0.6-1.3); GLUCOSE 151 mg/dL (74-106); POTASSIUM - SERUM 3.4 mmol/L (3.5-5.1); SODIUM 140 mmol/L (136-145); UREA NITROGEN 21 mg/dL (7-18); eGFR NON AFRICAN AMERICAN > 90 mL/min (90-120)
--- NOTE | 2020-12-18 07:31 | NUR ---
RECIEVED BEDSIDE SHIFT REPORT. PATIENT RESTING. AROUSES TO VOICE. DENIES NEEDS AT THIS TIME. BED LOW POSITION, CALL LIGHT IN REACH. WILL CONTINUE TO MONITOR.
[2020-12-18 09:28] VITALS: BP 141/75
[2020-12-18 12:37] VITALS: BP 147/81
[2020-12-18 17:27] VITALS: BP 140/72
[2020-12-18 20:00] VITALS: BP 138/84
[2020-12-19 04:00] VITALS: BP 119/74
[2020-12-19 06:44] LABS: CALC OSMOLALITY 279 mosm/kg (275-300); CALCIUM 8.5 mg/dL (8.5-10.1); CARBON DIOXIDE 31.1 mmol/L (21.0-32.0); CHLORIDE - SERUM 102 mmol/L (98-107); CREATININE - SERUM 0.6 mg/dL (0.6-1.3); GLUCOSE 176 mg/dL (74-106); POTASSIUM - SERUM 4.1 mmol/L (3.5-5.1); SODIUM 137 mmol/L (136-145); UREA NITROGEN 18 mg/dL (7-18); eGFR NON AFRICAN AMERICAN > 90 mL/min (90-120)
[2020-12-19 08:26] VITALS: BP 124/70
[2020-12-19 09:06] LABS: HEMOGLOBIN 11.9 g/dL (12-16); LYMPHOCYTE ABS# 0.37 10x3/uL (1.18-3.74); MCH 28.3 pg (26.0-34.0); MCHC 33.1 g/dL (31.0-37.0); MCV 85.7 fL (80.0-100.0); MEAN PLATELET VOLUME 9.8 fL (7.4-10.4); NEUTROPHIL ABS# 2.37 10x3/uL (1.56-6.13); PLATELET COUNT 52 10x3/uL (130-400); RDW 17.6 % (11.5-14.5); WBC 3.1 10x3/uL (4.8-10.8)
--- NOTE | 2020-12-19 10:55 | NUR ---
0700 - RECEIVED PT FROM OFFGOING NURSE RESTING QUIETLY IN BED. O2 AT 14 LPM VIA HIGH FLOW NC. NO S/SX OF DISTRESS NOTED. WILL CONTINUE TO MONITOR.
[2020-12-19 12:49] VITALS: BP 122/84
[2020-12-19 14:02] LABS: LYMPHOCYTES 12 % (15-50); MONOCYTES 3 % (2-11); NEUTROPHILS 73 % (40-80); PLATELET ESTIMATE DECREASED; ROULEAUX OCC
--- NOTE | 2020-12-19 16:36 | NUR ---
OT NOTE: PT REQUIRED MOD A FOR BED MOB TASKS. PT REQUIRED MOD A FOR SUPINE TO SIT. PT REQUIRED MIN A FOR SIDE ROLLING. PT COMPLETED LB HYGIENE WITH MAX A. [id number] THANK YOU,MARIE SAUCEDA
[2020-12-19 17:11] VITALS: BP 151/80
[2020-12-19 20:14] VITALS: BP 151/86
--- NOTE | 2020-12-19 22:56 | NUR ---
pt lying in bed, stating her back was hurting her, and asking for pain medication. pain meds were given along with regular night time meds. call light in reach with bed in lowest postion
[2020-12-20] VITALS (29 sets, daily range): BP systolic 59–145; BP diastolic 40–88
--- NOTE | 2020-12-20 08:43 | MORECARE ---
CASE MANAGEMENT DISCHARGE SUMMARY PATIENT: LAZARUS HECTOR UNIT: [id number] ADM DATE: 11/20/20 AGE: 59 : 62 SEX: F ROOM/BED: D.2240 AUTHOR: KEVIN,DOC PHYSICIAN: REFERRING PHYSICIAN: EVITA SLATER MD DATE OF SERVICE: 12/20/20 Discharge Plan Patient Name: LAZARUS HECTOR Facility: [facility]:[place] : 1960 Planned Disposition: Anticipated Discharge Date: Discharge Date: Expected LOS: Initial Reviewer: [email or web address] Initial Review Date: 11/20/2020 Generated: 12/20/20 9:42 am Comments DCP- Discharge Planning Updated by [id number]: Marcy Rogel on 12/20/20 7:[address] Patient Name: LAZARUS HECTOR Admission Status: ER Accout number: [id number] Admission Date: 11-20-2020 : 1960 Admission Diagnosis:PNEUMONIA, UNSPECIFIED ORGANISM Attending: EVITA SLATER Current LOS: 30 Anticipated DC Date: Planned Disposition: Primary Insurance: NOV[employer]YS MANAGED MEDICAID Discharge Planning Comments: SPOKE WITH PATIENT ABOUT LTACH AND SHE DOES NOT WANT TO BE MOVED FROM THIS HOSPITAL. I ALSO SPOKE WITH DR. SLATER AND HE STATES SHE DOES NOT NEED TO GO TO LTACH. ANTICIPATE SHE WILL BE MEDICALLY STABLE TO DC TO HOME NEXT WEEK. CM TO FOLLOW AND ASSIST NEEDED. Child Care Attendant School: Marcy Rogel DCP- Discharge Planning Updated by [id number]: Marcy Rogel on 12/17/20 12:[address] Patient Name: LAZARUS HECTOR Admission Status: ER Accout number: [id number] Admission Date: 11-20-2020 : 1960 Admission Diagnosis:PNEUMONIA, UNSPECIFIED ORGANISM Attending: EVITA SLATER Current LOS: 27 Anticipated DC Date: Planned Disposition: Primary Insurance: NOVASYS MANAGED MEDICAID Discharge Planning Comments: INFORMATION SENT TO [facility] TO SEE IF APPROPRIATE FOR LTACH. WAITING CALL BACK FROM [facility]. CM TO FOLLOW AND ASSIST NEEDED. Child Care Attendant School: Marcy Rogel DCP- Discharge Planning Updated by [id number]: Marcy Rogel on 12/05/20 1:[address] Patient Name: LAZARUS HECTOR Admission Status: ER Accout number: [id number] Admission Date: 11-20-2020 : 1960 Admission Diagnosis:PNEUMONIA, UNSPECIFIED ORGANISM Attending: EIVTA SLATER Current LOS: 15 Anticipated DC Date: Planned Disposition: Primary Insurance: NOV[employer]YS MANAGED MEDICAID Discharge Planning Comments: ATTEMPTED TO CONTACT PATIENT MULTIPLE TIMES FROM HER ROOM AND NO ANSWER. SHE IS ON ISOLATION AIRBORN. MOST INFORMATION WAS OBTAINED FROM THE CHART. PATIENT CURRENTLY ON VAPOTHERM. DEPENDING ON HOW SHE PROGRESSES I ANTICIPATE REHAB VS HOME WITH HOME HEALTH. SHE MAY NEED HOME OXYGEN ALSO. CM TO FOLLOW AND ASSIST NEEDED. Child Care Attendant School: Marcy Rogel DCP- Discharge Planning Updated by [id number]: Marcy Rogel on 11/29/20 12:[address] Patient Name: LAZARUS HECTOR Admission Status: ER Accout number: [id number] Admission Date: 11-20-2020 : 1960 Admission Diagnosis:PNEUMONIA, UNSPECIFIED ORGANISM Attending: EVITA SLATER Current LOS: 9 Anticipated DC Date: Planned Disposition: Primary Insurance: NOV[employer]YS MANAGED MEDICAID Discharge Planning Comments: ATTEPTED TO CALL PATIENT IN HER ROOM. NO ANSWER, THIS MAY BE DO TO HER NOW BEING ON VAPOTHERM. I WILL TRY CONTING HER AT A LATER TIME TO DO DISCHARGE PLANNING. CM TO FOLLOW AND ASSIST NEEDED. Child Care Attendant School: Marcy Rogel DCPIA - Discharge Planning Initial Assessment Updated by [id number]: Marcy Rogel on 12/05/20 1:56 pm * PCP NOHEMY * Pharmacy [facility] * Preadmission Environment Home with Family * ADLs Independent * Other Equipment WALKER * List name and contact numbers for known caregivers / representatives who currently or will assist patient after discharge: SUNDAY, TREVIN, * Additional services required to return to the preadmission environment? Yes * Has this patient been hospitalized within the prior 30 days at any hospital? Yes Last DP export: 12/17/20 12:49 pm Patient Name: LAZARUS HECTOR Page 38728 at 0843 All edits/amendments must be made on the electronic document DICTATION DATE: 12/20/20842 PRINTING SERVICES COORDINATOR: ELISEO 12/20/20 0843 RPT#: [id number] DC DATE: STATUS: ADM IN [facility] [address] [place] [address] END OF REPORT
--- NOTE | 2020-12-20 10:10 | NUR ---
PT LAYING IN BED, MEDS GIVEN, INSTRUCTED PT OF THE NEED FOR RESPIRATORY SAMPLE, PT VERBALIZED UNDERSTANDING
--- NOTE | 2020-12-20 13:33 | NUR ---
OT NOTE: PT EXHIBITING INCREASED MOVEMENT IN L LE. PRACTICED ROLLING FROM SIDE TO SIDE WITH MOD ASSIST; SUPINE TO SIT WITH MOD/MAX ASSIST. AFTER GETTING PT TO EOB, PT WAS ABLE TO MAINTAIN STATIC SITTING. PERFORME UE/LE AROM EXS WHILE ON EOB. PT FATIGUES QUICKLY..FREQ REST BREAKS REQUIRED..SIMPLE GROOMING WITH SET UP RIMA JUAREZ, OTR/L [phone]
--- NOTE | 2020-12-20 16:50 | NUR ---
PT ARRIVED TO PACU AT 1403, PROMISE BOSWELL RN RECEIVED PATIENT. PT WAS EXTUBATED AT 1411 AND PLACED ON NONREBREATHER 15L. @1418 TERBUTALINE 0.25 MG SQ WAS GIVEN PER ANESTHESIA ORDERS PER PROMISE BOSWELL RN. PT WAS PLACED ON BIPAP ON 1438, BIPAP RATE 22. 1427- ESMOLOL 20 MG WAS GIVEN PER PROMISE JOSUE PER ANESTHESIA ORDERS. 1430- ABGS DRAWN. 1439- 20 MG OF ESMOLOL GIVEN PER ANESTHSIA ORDERS. ANESTHESIA AND RESPIRATORY CONTINUOUSLY AT BEDSIDE. PATIENT WAS REINTUBATED AND TRANSFERRED TO THE ICU AT 1510.
--- NOTE | 2020-12-20 19:00 | NUR ---
Report received from off going nurse. No needs noted at this time. Shift assessment completed, see flowsheet for details. No s/s of distress. Will continue to monitor.
[2020-12-21] VITALS (32 sets, daily range): BP systolic 85–165; BP diastolic 52–93
--- NOTE | 2020-12-21 07:00 | NUR ---
REPORT RECEIVED FROM OFF GOING NURSE, ASSESSMENT COMPLETED PER FLOWSHEET, WILL CONTINUE WITH POC
--- NOTE | 2020-12-21 07:16 | NUR ---
Nutrition reassessment: Pt now in ICU post bronchoscopy; intubated, sedated with propofol @ 20 mcg/kg/min NPO Labs reviewed Ht: 5'1" Wt: 205# IBW: 105# +/-10% BMI: 38.7 Estimated nutritional needs: 3425-5420 - 25-35 kcal per AdjBW of 60 kg 60-78 gm protein - 1.0-1.3 gm/kg AdjBW 8459-2857 ml fluid Nutrition diagnosis: Inadequate oral intake R/T intubation post bronch AEB NPO at this time. Goals: Nutrition support will begin within 24-48 hours if pt remains intubated Will meet est fluid needs without fluid overload Stable dry wt +/-5# Interventions: Recommend Pulmocare @ 25 ml/hr with increase to goal rate of 40 ml/hr if pt remains intubated > 48-72 hours. Pt had a good po intake before intubation. RDN follow-up: 12/24/20
--- NOTE | 2020-12-21 09:17 | NUR ---
post bronch, turn off all drips per dr suarez, and start sbt trial
--- NOTE | 2020-12-21 11:05 | NUR ---
CALLED TO ROOM C/0 OF PAIN IN BACK AND HEAD, OXYCONTIN 10 MG GIVEN WITH SIPS OF H2O, TOLERATED WITHOUT DIFFICULTY, NO OTHER ACUTE CHANGE FROM PREVIOUS
--- NOTE | 2020-12-21 13:30 | NUR ---
REFUSED CHG BED BATH BATH
[2020-12-21 14:11] LABS: FUNGUS STAIN Final report (())
--- NOTE | 2020-12-21 15:30 | NUR ---
REPEAT FSBS, 51, 1/2 AMP DEXTROSE GIVNE PER MAR AND HYPOGLYCEMIC PROTOCAL
--- NOTE | 2020-12-21 16:40 | NUR ---
PT REFUSED TO WEAR BIPAP. ABG WAS DONE AFTER PT'S HEART RATE AND RESPIRATORY RATE INCREASED. RESULTS WERE CALLED TO DR. GIBSON AND HE ORDERED VAPOTHERM. DEVICE WAS PLACED ON PATIENT AT 35LPM AND 90%. SPO2 INCREASED FROM 79% TO 96%.
[2020-12-21 17:09] LABS: ACID FAST SMEAR Negative (()); AFB SPECIMEN PROCESSING Concentration (())
--- NOTE | 2020-12-21 17:46 | NUR ---
I have reviewed this patient and I concur with the Shift Assessment completed by the Licensed Practical Nurse today this shift.
--- NOTE | 2020-12-21 17:59 | NUR ---
CALLED TO BEDSIDE, FACE FLUSH AND WARM TO TOUCH, temp 100.2 F, ROOM COOLED COVERS OFF, ICE PACKS TO ARM PITS
--- NOTE | 2020-12-21 18:35 | NUR ---
CALLED TO BEDSIDE, C/O OF PAIN IN BACK, HEAD AND LEGS, OXYCOTIN 10 MG PO GIVEN PER MAR FLOWSHEET
--- NOTE | 2020-12-21 20:55 | NUR ---
PT RESTING IN BED, AWAKE UPON SHIFT ASSESSMENT, CONFUSED TO PLACE, SITUATION AND DATE. PT RE-ORIENTED AND INSTRUCTED ON JAYANT LIGHT USE. PT FEBRILE, BED BATH GIVEN AND LINEN CHANGE. PT REPORTS HEADACHE BUT APPEARS RESTING COMFORTABLY AT THIS TIME. NO DISTRESS NOTED, WILL CONT. TO ASSESS.
[2020-12-22] VITALS (23 sets, daily range): BP systolic 103–157; BP diastolic 62–103
[2020-12-22 08:25] LABS: HEMATOCRIT 32.1 % (36.0-48.0); HEMOGLOBIN 10.5 g/dL (12-16); LYMPHOCYTE ABS# 0.24 10x3/uL (1.18-3.74); MCHC 32.7 g/dL (31.0-37.0); MCV 85.6 fL (80.0-100.0); MEAN PLATELET VOLUME 10.1 fL (7.4-10.4); NEUTROPHIL ABS# 1.25 10x3/uL (1.56-6.13); RBC 3.75 10x6/uL (4.00-5.40); RDW 17.6 % (11.5-14.5)
[2020-12-22 08:28] LABS: PLATELET COUNT 48 10x3/uL (130-400); WBC 1.7 10x3/uL (4.8-10.8)
[2020-12-22 08:34] LABS: CALC OSMOLALITY 275 mosm/kg (275-300); CALCIUM 8.9 mg/dL (8.5-10.1); CARBON DIOXIDE 29.2 mmol/L (21.0-32.0); CHLORIDE - SERUM 100 mmol/L (98-107); CREATININE - SERUM 0.6 mg/dL (0.6-1.3); GLUCOSE 129 mg/dL (74-106); SODIUM 136 mmol/L (136-145); UREA NITROGEN 17 mg/dL (7-18); eGFR NON AFRICAN AMERICAN > 90 mL/min (90-120)
[2020-12-22 08:40] LABS: ALBUMIN 1.8 g/dL (3.4-5.0); ALKALINE PHOSPHATASE 75 U/L (30-120); ALT (SGPT) 96 U/L (10-68); BILIRUBIN - TOTAL 0.81 mg/dL (0.2-1.3); PROTEIN - SERUM 5.4 g/dL (6.4-8.2)
[2020-12-22 08:57] LABS: LYMPHOCYTES 29 % (15-50); NEUTROPHILS 67 % (40-80); PLATELET ESTIMATE DECREASED
--- NOTE | 2020-12-22 12:14 | NUR ---
PTS HEART RATE HOLDING 120-130S SINUS TACH WITH SBP TRENDING 130-140S. DR NOHEMY LOCKETT.
--- NOTE | 2020-12-22 14:15 | NUR ---
NO CALLBACK FROM DR SLATER, DR GIBSON ROUNDING ON PT. NOTIFIED OF PTS TACHYCARDIA. ORDER RECIEVED FOR METOPROLOL 12.5MG BID FIRST DOSE NOW.
[2020-12-23] VITALS (23 sets, daily range): BP systolic 122–153; BP diastolic 73–123
[2020-12-23 06:35] LABS: BASOPHILS 0 % (0-2); EOSINOPHILS 0 % (0-7); HEMATOCRIT 31.3 % (36.0-48.0); IMMATURE GRANULOCYTES 0.4 % (0-5); LYMPHOCYTE ABS# 0.29 10x3/uL (1.18-3.74); LYMPHOCYTES 12.2 % (15-50); MCH 27.5 pg (26.0-34.0); MCHC 31.9 g/dL (31.0-37.0); MEAN PLATELET VOLUME 10.7 fL (7.4-10.4); MONOCYTES 3.4 % (2-11); RBC 3.64 10x6/uL (4.00-5.40); RDW 17.2 % (11.5-14.5)
[2020-12-23 06:38] LABS: PLATELET COUNT 60 10x3/uL (130-400); WBC 2.4 10x3/uL (4.8-10.8)
[2020-12-23 06:48] LABS: ALBUMIN 1.7 g/dL (3.4-5.0); ALKALINE PHOSPHATASE 71 U/L (30-120); BILIRUBIN - TOTAL 0.56 mg/dL (0.2-1.3); CALC OSMOLALITY 267 mosm/kg (275-300); CALCIUM 8.8 mg/dL (8.5-10.1); CARBON DIOXIDE 32.1 mmol/L (21.0-32.0); CHLORIDE - SERUM 99 mmol/L (98-107); CREATININE - SERUM 0.6 mg/dL (0.6-1.3); GLUCOSE 109 mg/dL (74-106); POTASSIUM - SERUM 3.8 mmol/L (3.5-5.1); PROTEIN - SERUM 5.4 g/dL (6.4-8.2); SODIUM 133 mmol/L (136-145); UREA NITROGEN 15 mg/dL (7-18); eGFR NON AFRICAN AMERICAN > 90 mL/min (90-120)
[2020-12-23 06:53] LABS: ALT (SGPT) 71 U/L (10-68)
--- NOTE | 2020-12-23 07:07 | NUR ---
PT RESTED WELL THOUGHOUT NIGHT, RT PLACED ON BIPAP EARLY IN EVENING AND SPO2 REMAINED WNL. PRN PAIN MED GIVEN AT BEDTIME PER PT REQUEST FOR HEADACHE. NO DISTRESS NOTED DURING NIGHT. WILL REPORT TO ONCOMING NURSE.
--- NOTE | 2020-12-23 07:53 | NUR ---
DECREASED FIO2 ON VAPOTHERM TO 70% PER VERBAL ORDER DR GIBSON DURING MORNING ROUNDS SPO2 92% ON DEPARTURE
--- NOTE | 2020-12-23 11:01 | NUR ---
PHYSICAL THERAPY IN ROOM WORKING WITH PT. VSS. NO ACUTE DISTRESS NOTED. WILL CONTINUE PLAN OF CARE.
--- NOTE | 2020-12-23 15:07 | NUR ---
CONTINENT BOWEL MOVEMENT NOTED AT THIS TIME VIA BEDPAIN. LINEN CHANGE PROVIDED, DAINA CARE PROVIDED. VSS. NO ACUTE DISTRESS NOTED. PT TURNED Q2H. WILL CONTINUE PLAN OF CARE.
--- NOTE | 2020-12-23 18:16 | NUR ---
SITTNG UP IN BED VISITING WITH HER SON AT THIS TIME. DENIES ANY NEEDS. VSS. WILL CONTINUE PLAN OF CARE.
[2020-12-24] VITALS (24 sets, daily range): BP systolic 101–134; BP diastolic 38–98
--- NOTE | 2020-12-24 01:00 | NUR ---
PATIENT AGITATED, PULLING LINES AND REFUSING CARE. UNABLE TO CONSOLE. REORIENTATION PROVIDED AND PLAN OF CARE DISCUSSED, DOES NOT VERBALIZE UNDERSTANDING. ENVIRONMENT ASSESSED AND BILATERAL SOFT WRIST RESTRAINTS APPLIED FOR SAFETY. EXPLAINATION GIVEN, SAFETY PARAMETERS FOR DISCONTINUATION OF RESTRAINTS DISCUSSED, DOES NOT VERBALIZE UNDERSTANDING. ALERT AND ABLE TO FOLLOW COMMANDS, INCREASED CONFUSION WITH AGITATION. STAT ABG ORDERED, RT NOTIFIED AND RESPONDED TO BEDSIDE. WILL CONTINUE TO ASSESS FOR COMPLIANCE AND SAFETY.
--- NOTE | 2020-12-24 01:30 | NUR ---
PATIENT QUIET IN BED WITH EYES CLOSED, NO SIGN OF DISTRESS.
--- NOTE | 2020-12-24 06:05 | NUR ---
PATIENT INTIALLY AGITATED WHEN PLACED ON BIPAP, REQUIRED FREQUENT REORIENTATION FROM STAFF FOR COMPLIANCE. REFUSED CHG BATH AND FREQUENT TURNS.
[2020-12-24 10:08] LABS: FUNGUS STAIN Final report (())
--- NOTE | 2020-12-24 12:11 | NUR ---
Nutrition follow-up: Discussed pt during IDT team rounds. Pt in bed with BIPAP in place Diet order: Consistent CHO PO intake 100% of some meals; pt refused breakfast this moring Labs reivewed +BM Wt: 207# RDN follow-up: 12/26/20
--- NOTE | 2020-12-24 16:19 | NUR ---
OT NOTE: HOLD PER NURSING REQUEST SECONDARY AGITATION RIMA JUAREZ,OTR/L
--- NOTE | 2020-12-24 21:17 | NUR ---
GLUCOSE 64 WITH FINGER STICK, GAVE APPLE JUICE, WILL RECHECK
--- NOTE | 2020-12-24 21:40 | NUR ---
RECHECKED FSBS, IT IS NOW 104. WILL CONTINUE TO MONITOR
--- NOTE | 2020-12-24 23:25 | NUR ---
PT PLACED ON BIPAP BY RT
[2020-12-25] VITALS (77 sets, daily range): BP systolic 58–145; BP diastolic 40–101
--- NOTE | 2020-12-25 00:18 | NUR ---
DR. TEO LOCKETT FOR BLOOD GAS RESULTS
--- NOTE | 2020-12-25 00:25 | NUR ---
DR. BRUCE BACK ORDERS GIVEN FOR INTABATION
--- NOTE | 2020-12-25 00:33 | NUR ---
PAGED BJ WITH ANESTHESIA TO INTABATE
--- NOTE | 2020-12-25 00:35 | NUR ---
BJ RETURNED PAGE
--- NOTE | 2020-12-25 00:41 | NUR ---
ELOINA BUTLER, CONTACTED AND ADVISED THAT WE WILL BE INTABATING.
--- NOTE | 2020-12-25 01:45 | NUR ---
PT INTABATED AT 0130, TOLERATED WELL. 24 AT THE LIPS, SIZE 7.5, ETT SECURED, R-20, TV-450, FI02 100%, PEEP 10
[2020-12-25 05:02] LABS: BASOPHILS 0.9 % (0-2); EOSINOPHILS 2.2 % (0-7); IMMATURE GRANULOCYTES 4.2 % (0-5); LYMPHOCYTE ABS# 0.58 10x3/uL (1.18-3.74); LYMPHOCYTES 12.9 % (15-50); MCH 27.9 pg (26.0-34.0); MCHC 32.3 g/dL (31.0-37.0); MCV 86.3 fL (80.0-100.0); MEAN PLATELET VOLUME 11.7 fL (7.4-10.4); MONOCYTES 2.4 % (2-11); NEUTROPHIL ABS# 3.48 10x3/uL (1.56-6.13); NEUTROPHILS 77.4 % (40-80); RDW 17.6 % (11.5-14.5)
[2020-12-25 05:06] LABS: ALBUMIN 1.5 g/dL (3.4-5.0); ANION GAP 9.3 mmol/L (8-16); CALCIUM 9.5 mg/dL (8.5-10.1); CARBON DIOXIDE 29.7 mmol/L (21.0-32.0); MAGNESIUM - SERUM 1.7 mg/dL (1.8-2.4); PHOSPHOROUS 3.4 mg/dL (2.5-4.9); PROTEIN - SERUM 5.9 g/dL (6.4-8.2)
[2020-12-25 05:10] LABS: HEMOGLOBIN 12.6 g/dL (12-16); PLATELET COUNT 125 10x3/uL (130-400); RBC 4.52 10x6/uL (4.00-5.40); WBC 4.5 10x3/uL (4.8-10.8)
--- NOTE | 2020-12-25 06:16 | NUR ---
[facility], DR. OSUNA, WOULD LIKE TO TALK TO DR. BRUCE REGARDING CHEST XRAY. DR. BRUCE PAGED TWICE WITH NO RETURN CALL. NUMBER IS
--- NOTE | 2020-12-25 06:30 | NUR ---
I have reviewed this patient and I concur with the Shift Assessment completed by the Licensed Practical Nurse today this shift.
--- NOTE | 2020-12-25 08:00 | NUR ---
PT RESTING COMFORTABLE, ORAL CARE PROVIDED AND SECREATIONS SUCTIONED, PT POSITIONED FOR COMFORT, WILL MONITOR
--- NOTE | 2020-12-25 09:15 | NUR ---
PO MEDS HELD DUE TO PT NOT HAVING A NG OR OG TUBE, DR BRUCE AWARE
--- NOTE | 2020-12-25 11:37 | NUR ---
OT NOTE: ATTEMPTED EVAL AGAIN, HOWEVER, PT WAS INTUBATED OVERNIGHT. WILL CONT TO CHECK ON PT RIMA JUAREZ, OTR/L
--- NOTE | 2020-12-25 12:13 | NUR ---
SPOKE WITH DR HAYNES ABOUT CONSULT
--- NOTE | 2020-12-25 15:30 | NUR ---
VOICE AT BEDSIDE FOR EGD AND OG TUBE PLACEMENT, PT TOLERATED WELL
--- NOTE | 2020-12-25 16:25 | NUR ---
SON AT BEDSIDE
--- NOTE | 2020-12-25 17:41 | NUR ---
URINE SAMPLE SENT TO LAB
[2020-12-26] VITALS (30 sets, daily range): BP systolic 82–136; BP diastolic 35–81
[2020-12-26 06:14] LABS: BASOPHILS 0.3 % (0-2); EOSINOPHILS 0.8 % (0-7); HEMOGLOBIN 10.8 g/dL (12-16); IMMATURE GRANULOCYTES 1.4 % (0-5); LYMPHOCYTE ABS# 0.34 10x3/uL (1.18-3.74); LYMPHOCYTES 9.5 % (15-50); MCH 27.7 pg (26.0-34.0); MCHC 32.7 g/dL (31.0-37.0); MCV 84.6 fL (80.0-100.0); MONOCYTES 0.3 % (2-11); NEUTROPHIL ABS# 3.14 10x3/uL (1.56-6.13); NEUTROPHILS 87.7 % (40-80); RDW 17.4 % (11.5-14.5); WBC 3.6 10x3/uL (4.8-10.8)
[2020-12-26 06:15] LABS: PLATELET COUNT 76 10x3/uL (130-400)
[2020-12-26 06:42] LABS: ALBUMIN 1.3 g/dL (3.4-5.0); ANION GAP 13.9 mmol/L (8-16); BILIRUBIN - TOTAL 0.74 mg/dL (0.2-1.3); CALCIUM 9.4 mg/dL (8.5-10.1); CARBON DIOXIDE 26.8 mmol/L (21.0-32.0); CREATININE - SERUM 1.2 mg/dL (0.6-1.3); PHOSPHOROUS 3.9 mg/dL (2.5-4.9); POTASSIUM - SERUM 3.7 mmol/L (3.5-5.1); PROTEIN - SERUM 6.2 g/dL (6.4-8.2)
--- NOTE | 2020-12-26 07:30 | NUR ---
RESTING COMFORTABLE, TEMP 102.6, TYLENOL GIVEN AT THIS TIME, WILL MONITOR
--- NOTE | 2020-12-26 07:30 | NUR ---
LEVOPHED DRIP TURNED OFF AT THIS TIME
--- NOTE | 2020-12-26 08:20 | NUR ---
TEMP 101.7, ICE PACKS PLACED ON PT, WILL MONITOR
--- NOTE | 2020-12-26 10:50 | NUR ---
DR BRUCE AT BEDSIDE FOR BRONCH
[2020-12-26 11:26] LABS: PLATELET ESTIMATE DECREASED
[2020-12-26 11:27] LABS: HYPOCHROMASIA OCC
--- NOTE | 2020-12-26 12:21 | NUR ---
Nutrition follow-up: Pt intubated, sedated with propofol @ 13.7 ml/hr OGT placed by GI labs reviewed Wt: 193# Received order from Dr. Marquez to start Pulmocare @ 20 ml/hr with increase to goal rate of 40 ml/hr RDN follow-up: 12/28/20
[2020-12-26 16:31] LABS: NEUT - BF 51 %
--- NOTE | 2020-12-26 16:40 | NUR ---
TUBE FEEDS STARTED AT THIS TIME, PULMOCARE AT 20ML/HR, HOB ELEVATED, PLACEMENT VERIFIED WITH AIR BOLUS, WILL MONITOR
[2020-12-27] VITALS (26 sets, daily range): BP systolic 93–136; BP diastolic 59–91
--- NOTE | 2020-12-27 00:32 | NUR ---
REMAINS AFEBRILE FOLLOWING TYLENOL ADMINISTRATION. TEMP 101.6 AXILLARY. COOLING MEASURES-ICE PACKS TO AXILLA AND GROIN APPLIED.
--- NOTE | 2020-12-27 00:40 | NUR ---
SPOKE WITH DR. ALONSO, PATIENT PULLING ADEQUATE TIDAL VOLUME ON VENTILATOR, NO SIGN OF DISTRESS.
--- NOTE | 2020-12-27 05:31 | NUR ---
PATIENT HAD RESPIRATORY EVENT DURING SHIFT WHILE THIS NURSE WAS OFF UNIT. LEAK NOTED FROM ETT BY RT, MALPOSITIONED. RT REPOSITIONED ETT, DR. ALONSO NOTIFIED. CHEST XRAY OBTAINED. ETT AT LIP 24 CM. NO CHANGES IN LUNG SOUNDS, EQUAL LUNG EXPANSION. PATIENT SPO2 DECLINED FROM PREVIOUS VALUES, PRIOR TO AND AFTER ETT REPOSITIONING, MAINTAINING APPROXIMATELY 90-92%. FEVER SUBSIDED TO 99.1 ORAL. TOLERATING TUBE FEEDING, 0 RESIDUALS, ADVANCED TO 30 ML/HR. REPOSITIONED FREQUENTLY FOR SKIN PROTECTION.
--- NOTE | 2020-12-27 06:15 | NUR ---
TUBEFEEDING RATE INCREASED TO 40 ML/HR, NOW AT GOAL. TOLERATING WELL, NO RESIDUALS.
[2020-12-27 07:56] LABS: ANION GAP 13.4 mmol/L (8-16); CALCIUM 8.5 mg/dL (8.5-10.1); CARBON DIOXIDE 26.8 mmol/L (21.0-32.0)
[2020-12-27 07:58] LABS: CREATININE - SERUM 1.9 mg/dL (0.6-1.3); POTASSIUM - SERUM 5.2 mmol/L (3.5-5.1)
[2020-12-27 08:26] LABS: BASOPHILS 1.2 % (0-2); EOSINOPHILS 1.2 % (0-7); HEMATOCRIT 32.1 % (36.0-48.0); HEMOGLOBIN 10.2 g/dL (12-16); IMMATURE GRANULOCYTES 2.9 % (0-5); LYMPHOCYTE ABS# 0.56 10x3/uL (1.18-3.74); LYMPHOCYTES 13.3 % (15-50); MCH 27.9 pg (26.0-34.0); MCHC 31.8 g/dL (31.0-37.0); MONOCYTES 0.5 % (2-11); NEUTROPHILS 80.9 % (40-80); RBC 3.66 10x6/uL (4.00-5.40); RDW 17.9 % (11.5-14.5); WBC 4.2 10x3/uL (4.8-10.8)
[2020-12-27 08:28] LABS: MCV 87.7 fL (80.0-100.0)
[2020-12-27 08:29] LABS: PLATELET COUNT 42 10x3/uL (130-400)
[2020-12-27 09:13] LABS: FUNGUS MYCOLOGY CULTURE Preliminary report (()); FUNGUS STAIN RESULT 1 Hyphae observed (())
--- NOTE | 2020-12-27 09:15 | NUR ---
DR BRUCE HERE SEEING PATIENT
--- NOTE | 2020-12-27 10:42 | NUR ---
ELIA BAKER NOTIFIED OF CONSULT
--- NOTE | 2020-12-27 10:50 | NUR ---
ELIA BAKER HERE SEEING PT, AFLUTTER NOTED ON EKG, PT STARTED ON CARDIZEM DRIP AT 10MG/HR, HR 144, WILL MONITOR
--- NOTE | 2020-12-27 16:00 | NUR ---
DR CERVANTES HERE SEEING PATIENT
[2020-12-27 16:09] LABS: ACID FAST SMEAR Negative (()); AFB SPECIMEN PROCESSING Concentration (())
--- NOTE | 2020-12-27 17:43 | NUR ---
FAMILY AT BEDSIDE
--- NOTE | 2020-12-27 21:31 | NUR ---
SPOKE WITH DAUGHTER IN LAW, MICHAEL, SHE WOULD LIKE DR. BRUCE TO GIVE HER A CALL REGARDING PROGNOSIS.
[2020-12-28] VITALS (33 sets, daily range): BP systolic 68–148; BP diastolic 28–100
--- NOTE | 2020-12-28 00:32 | NUR ---
BP DROPED 69/49 MAP 49 SPO2 76%, LEVO STARTED PER ORDER
--- NOTE | 2020-12-28 00:41 | NUR ---
CALLED DAUGHTER IN LAW, ELOINA, NO ANSWER. LEFT A VOICEMAIL FOR HER TO CALL BACK
--- NOTE | 2020-12-28 01:05 | NUR ---
SPOKE WITH DAUGHTER IN LAW, UPDATED ON PTS STATUS. FAMILY COMING IN
--- NOTE | 2020-12-28 01:56 | NUR ---
FAMILY AT BEDSIDE
--- NOTE | 2020-12-28 02:27 | NUR ---
PT IS CURRENTLY ON 13MCG OF LEVO, FAMILY IS NOT WANTING THE DOSAGED INCREASED, DR BRUCE NOTIFIED.
--- NOTE | 2020-12-28 02:27 | NUR ---
DR. BRUCE NOTIFIED ON PTS CONDITION. FAMILY HAS REQUESTED DNR. ORDERS GIVEN BY DR. BRUCE
[2020-12-28 04:32] LABS: HEMATOCRIT 28.7 % (36.0-48.0); HEMOGLOBIN 8.9 g/dL (12-16); LYMPHOCYTES 10.4 % (15-50); MCH 28.4 pg (26.0-34.0); NEUTROPHILS 85.1 % (40-80); RBC 3.13 10x6/uL (4.00-5.40); RDW 17.9 % (11.5-14.5)
[2020-12-28 04:35] LABS: INR 1.69 (0.85-1.17); PROTIME 18.4 SECONDS (11.6-15.0)
[2020-12-28 04:36] LABS: APTT 34.6 SECONDS (22.8-39.4)
[2020-12-28 04:58] LABS: BILIRUBIN - TOTAL 0.59 mg/dL (0.2-1.3); CALCIUM 7.9 mg/dL (8.5-10.1); CARBON DIOXIDE 22.5 mmol/L (21.0-32.0); MAGNESIUM - SERUM 3.1 mg/dL (1.8-2.4); PROTEIN - SERUM 5.4 g/dL (6.4-8.2)
[2020-12-28 05:04] LABS: MCV 91.7 fL (80.0-100.0); WBC 9.1 10x3/uL (4.8-10.8)
[2020-12-28 05:05] LABS: ALBUMIN 0.9 g/dL (3.4-5.0); ANION GAP 15.8 mmol/L (8-16); PHOSPHOROUS 8.8 mg/dL (2.5-4.9)
[2020-12-28 05:07] LABS: PLATELET COUNT 37 10x3/uL (130-400)
[2020-12-28 05:08] LABS: D-DIMER-QUANTITATIVE 6.12 ug/mLFEU (0.20-0.54); POTASSIUM - SERUM 6.3 mmol/L (3.5-5.1)
--- NOTE | 2020-12-28 05:22 | NUR ---
PTS BP PRESSURE CONTINUES TO DECREASE, FAMILY REFUSING TO HAVE LEVO INCREASED.
--- NOTE | 2020-12-28 05:27 | NUR ---
FAMILY IS TALKING ABOUT TERMINAL EXTABATION
--- NOTE | 2020-12-28 05:49 | NUR ---
DR. BRUCE PAGED REGARDING CRITICAL LABS
--- NOTE | 2020-12-28 05:51 | NUR ---
DR BRUCE NOTIFIED OF LAB VALUES AND PTS VITALS. FAMILY IS NOT WANTING PATIENT TREATED, WAITING FOR SON TO COME TO TOWN TO TERMINALLY EXTABATE
--- NOTE | 2020-12-28 06:32 | NUR ---
I have reviewed this patient and I concur with the Shift Assessment completed by the Licensed Practical Nurse today this shift.
--- NOTE | 2020-12-28 07:00 | NUR ---
REPORT RECEIVED. ASSESSMENT COMPLETE PER FLOW SHEET
--- NOTE | 2020-12-28 07:25 | NUR ---
FAMILY CALLED GIVEN UPDATE.
--- NOTE | 2020-12-28 08:10 | NUR ---
SUNDAY AT BEDSIDE. LONG DISCUSSION REGAURDING PLAN OF CARE. STATED DID NOT WANT TO REMOVE VENT AT THIS TIME. TO CONTINUE CURRENT COURSE OF CARE, PT TO REMAIN DNR AND NO ADDED MEDICATIONS AT THIS TIME. WOULD REASSESS SITUATION IN [address] SLATER GIVEN UDPATE.
--- NOTE | 2020-12-28 09:00 | NUR ---
PT HR DROPPED FROM 89 TO 63 SUNDAY CALLED STATED WOULD BE ON HIS WAY.
--- NOTE | 2020-12-28 09:08 | NUR ---
PT HR 0 ASYSTOLE NO PULSE PRESENT. DR NOHEMY LOCKETT STATED FOR DR BRUCE TO PRONOUNCE.
--- NOTE | 2020-12-28 09:15 | NUR ---
PT PRONOUNCED AT THIS TIME BY DR BRUCE
--- NOTE | 2020-12-28 09:20 | NUR ---
FAMILY AT BEDSIDE. GIVEN UPDATE. NO PT BELONGINGS FOUND. [facility] CALLED.
[2020-12-28 16:09] LABS: FUNGUS CULTURE RESULT 1 Candida albicans (())
[2020-12-28 16:09] LABS: FUNGUS STAIN Final report (())
[2020-12-28 16:09] LABS: FUNGUS CULTURE RESULT 1 Candida albicans (()); FUNGUS MYCOLOGY CULTURE Preliminary report (())
[2020-12-28 18:08] LABS: AEROBE ID Final report (())
--- NOTE | 2020-12-31 16:00 | EC ---
PATIENT:LAZARUS HECTOR DATE OF SERVICE: 11/20/20 SEX: F MEDICAL RECORD: [id number] DATE OF : 62 LOCATION:[facility] D230 AGE OF PATIENT: 60 ADMISSION DATE: 11/20/20 REFERRING PHYSICIAN: INTERPRETING PHYSICIAN: AIXA BARBER MD ECHOCARDIOGRAM REPORT ECHO CHARGES 4 ECHO COMPLETE Date: 12/27/20 CLINICAL DIAGNOSIS: AFLUTTER ECHOCARDIOGRAPHIC MEASUREMENTS (adult normal given) AC root (d.<3.7cm) 0 cm LV Septum d (<1.2 cm> 0 cm Valve Excursion 0 cm LV Septum (systole) 0 cm Left Atria (s.<4.0cm> 0 cm LVPW d(<1.2cm) 0 cm RV (d.<2.3cm) 0 cm LVPW (sytole) 0 cm LV diastole(<5.6CM) 0 cm MV E-F(>70mm/sec) 0 cm LV systole 0 cm LVOT Diameter 0 cm MV exc.(>10mm) 0 cm Est.ejection fraction (50-75%) % DOPPLER: LVIT cm/sec A 0 cm/sec E 0 cm/sec LA 0 cm/sec RVSP 27 mmHg LVOT 0 cm/sec AOP1/2T m/s Asc. Ao 0 cm/sec RVOT 0 cm/sec RA 0 cm/sec PA 0 cm/sec AV Gradient Peak 0 mmHg AV Mean 0 mmHg AV Area 0 cm MV Gradient Peak 0 mmHg MV Mean 0 mmHg MV Area 0 cm COMMENTS: Online Project Manager: William ERICKSON KAYLEY Rn Practitioner: 3 Dr. Golden TAPE# Pericardial Effusion N DATE OF SERVICE: This is a limited study. 2D color flow only. FINDINGS: No LVH. LV internal dimension is normal. Wall motion is normal. EF is greater than or equal to 55%. Aortic valve is tricuspid with good valve excursion. Left atrium appears normal. Mitral valve appears grossly normal. Trace MR. Right-sided appear grossly normal. Trace TR. ECHOCARDIOGRAM REPORT [id number] LAZARUS HECTOR TRANSINT:[id number] Voice Confirmation ID: [id number] DOCUMENT ID: [id number] AIXA BARBER MD at 1600 CC: [id number] DICTATION DATE: 12/27/20 1557 PURCHASING SUPERVISOR: 12/27/201923 DIS IN 12/28/20 [facility] [address] [place] [address]
[2021-01-02 12:11] LABS: FUNGUS CULTURE RESULT 1 Candida albicans (()); FUNGUS MYCOLOGY CULTURE Preliminary report (())
== END 2020-12-28 11:24 | DRG 208 ==
LOC: D.ER 15:09 → D.ICU 17:10 → D.EDHOLD 17:10 → D.MS 17:10 → D.ICU 12-12 10:27 → D.SDCHOLD 12-13 16:32 → D.ICU 12-13 16:35 → D.MS 12-16 16:42 → D.ICU 12-20 14:51
PROVIDERS: Family Medicine; Internal Medicine Hematology & Oncology; Internal Medicine Pulmonary Disease; ADMIT Family Medicine; ATTEND Family Medicine
PROC: 05HM33Z Insertion of Infusion Device into Right Internal Jugular Vein, Percutaneous Approach (ICD-10-PCS; principal; 2020-12-12)
PROC: 0B9G8ZX Drainage of Left Upper Lung Lobe, Via Natural or Artificial Opening Endoscopic, Diagnostic (ICD-10-PCS; 2020-12-20)
PROC: 0B9J8ZX Drainage of Left Lower Lung Lobe, Via Natural or Artificial Opening Endoscopic, Diagnostic (ICD-10-PCS; 2020-12-20)
PROC: 0B9J8ZX Drainage of Left Lower Lung Lobe, Via Natural or Artificial Opening Endoscopic, Diagnostic (ICD-10-PCS; 2020-12-21)
PROC: 5A1945Z Respiratory Ventilation, 24-96 Consecutive Hours (ICD-10-PCS; 2020-12-25)
PROC: 0BH17EZ Insertion of Endotracheal Airway into Trachea, Via Natural or Artificial Opening (ICD-10-PCS; 2020-12-25)
PROC: 0B9J8ZX Drainage of Left Lower Lung Lobe, Via Natural or Artificial Opening Endoscopic, Diagnostic (ICD-10-PCS; 2020-12-26)
DX: J15.8 Pneumonia due to other specified bacteria (principal); J96.01 Acute respiratory failure with hypoxia; N17.0 Acute kidney failure with tubular necrosis; A41.9 Sepsis, unspecified organism; D80.2 Selective deficiency of immunoglobulin A [IgA]; D80.3 Selective deficiency of immunoglobulin G [IgG] subclasses; D61.818 Other pancytopenia; Y95 Nosocomial condition; J44.9 Chronic obstructive pulmonary disease, unspecified; R07.9 Chest pain, unspecified; I10 Essential (primary) hypertension; R53.81 Other malaise; Z86.16 Personal history of COVID-19; E11.65 Type 2 diabetes mellitus with hyperglycemia; K74.60 Unspecified cirrhosis of liver; B18.2 Chronic viral hepatitis C; K21.9 Gastro-esophageal reflux disease without esophagitis; G89.29 Other chronic pain; J45.909 Unspecified asthma, uncomplicated; D69.6 Thrombocytopenia, unspecified